=== PATIENT | male | born 1980 | race Two or more races ===

== ENCOUNTER 2024-07-23 07:45 | Inpatient (IN) | payer MEDICAID, SELFPAY ==
[2024-07-23] VITALS (17 sets, daily range): BP systolic 117–175; BP diastolic 83–127; PULSE 78–110; RESP 12–91; TEMP 36.3–37.1; O2SAT 89–98; BMI 39.1; BMI 38.0
--- NOTE | 2024-07-23 07:56 | EDNOTE_ITS ---
ED SOB =RME/HPI General Chief Complaint: Shortness of Breath/Dyspnea Stated Complaint: SOB WITH EXERTION X 1MO Time Seen by Provider: 07/23/24 07:54 Arrival date/time: 07/23/24 07:45 RME / HPI RME / HPI Narrative: This section includes all my notes and documentations, including HPI, PE, and ED course.? Oscar Conner MD HPI: 43 year old male with no stated medical history presents to the ED with 1 week history of progressively worsening shortness of breath. Accompanied by cough producing green phlegm and subjective fever. Denies chills, chest pain. Denies sore throat or nasal congestion. Reports heavy alcohol usage. No other associated symptoms reported. ROS: All negative except as documented in HPI. Physical Exam: General:? Alert and oriented.? Moderate respiratory distress noted. High BP noted. Hypoxia noted. Eyes:? Conjunctivae and lids clear.?? ENT:? No nasal congestion.? Neck:? Supple.?? Heart:? RRR.? Lungs:? Mild respiratory distress, modertely decreased air movement with wheezing and rales. Abdomen: Soft and nontender. Back:? No CVA tenderness.?? Skin:? Warm and dry.?? Neuro:? Alert and oriented X 3. Prior to diagnostic tests, patient was given DuoNeb and Solu-Medrol 125 mg IV and oral clonidine and oral metoprolol. And IV fluid ordered. I reviewed all diagnostic test results: My interpretation of the EKG is: Sinus tachycardia (104 bpm) with nonspecific ST-T changes. My interpretation of the chest x-ray is: Moderate enlargement cardiac contour, mild vascular congestion. My review of the CTA chest report is: mild heart failure, negative for PE, pulmonary hypertension. My review of the CT abdomen/pelvis is: cirrhosis and anasarca. Blood tests remarkable for D-dimer 987, BNP 638. ABG showed pH 7.30, pCO2 61, and pHCO3 30. Covid/Influenza is negative. At this point, diagnoses include: Acute respiratory failure with hypoxia and hypercapnia, CHF, anasarca, and cirrhosis. IV fluid discontinued. Lasix and morphine and topical NTG given. With no improvement, BiPAP initiated. Significant improvement not noted. I discussed the case with our hospitalist.? About the presentation and exam and diagnostics and treatments here.? And need of further care in the hospital.? Will accept the patient. Oscar Conner MD Related Data Allergies Allergy/AdvReac Type Severity Reaction Status Date / Time NKA* Allergy Uncoded 07/10/15 20:33 Review of Systems Review of Systems Systems Reviewed: All systems reviewed, normal except as documented Past Medical History Past Medical History CARDIAC: Negative Cardiac Disorders or Congestive Heart Failure RESPIRATORY: Positive Asthma (SOB); Negative Chronic Obstructive Pulmonary Disease (COPD) GENITOURINARY: Negative Renal Disease ENDOCRINE: Negative Diabetes Mellitus Type 1 or Diabetes Mellitus Type 2 HEMATOLOGIC: Negative Sickle Cell Disease Family History FAMILY HISTORY: Positive Family Cardiac Disorders; Negative Family Cancer Social History SMOKING STATUS: Never smoker ED Exam Narrative Physical exam: As noted in HPI Course Quality Measures none Orders Category Date Time Status Admit to Inpatient Status Routine Admission 07/23/24 11:58 Active Patient Condition Routine Admission 07/23/24 11:58 Ordered Activity as Tolerated Routine Care 07/23/24 12:00 Ordered Bedside COVID-19 Antigen Test NOW Care 07/23/24 07:56 Active Bedside Influenza A&B Antigen Test NOW Care 07/23/24 07:56 Completed COVID-19 Screening Questionnaire NOW Care 07/23/24 12:[address] Screening NOW Care 07/23/24 07:58 Active Decision to Admit X1 Care 07/23/24 12:11 Active EKG (ED ONLY) *Do not use* NOW Care 07/23/24 07:58 Completed Esquivel [Urinary Catheter] NOW Care 07/23/24 11:58 Active NPO NOW Care 07/23/24 12:00 Active Notify provider NEEDED Care 07/23/24 11:58 Active Obtain weight daily Care 07/23/24 12:00 Active Saline [Insert IV] NOW Care 07/23/24 07:56 Active Strict Intake and Output Routine Care 07/23/24 12:00 Ordered Referral Respiratory Therapy Stat Cons 07/23/24 09:58 Active Diet NPO (NOW) Diet 07/23/24 12:00 Active CA echo doppler complete Routine Exams 07/23/24 12:[address] abdomen pelvis w con Stat Exams 07/23/24 07:[address] angio chest Stat Exams 07/23/24 07:58 Completed EKG (ED Only) Stat Exams 07/23/24 07:58 Draft XR chest 1V portable Stat Exams 07/23/24 07:58 Completed A1C [Glycohemoglobin w (eAG)] AM DRAW Lab 07/24/24 05:00 Ordered ABG [Arterial Blood Gas] Stat Lab 07/23/24 08:41 Completed Alcohol, Blood Medical Stat Lab 07/23/24 08:28 Completed Amylase Stat Lab 07/23/24 08:28 Completed BNP [B-Type Natriuretic Peptide] Stat Lab 07/23/24 08:28 Completed Bilirubin,Direct Stat Lab 07/23/24 08:28 Completed CBC AM DRAW Lab 07/24/24 05:00 Ordered CBC AM DRAW Lab 07/25/24 05:00 Ordered CBC AM DRAW Lab 07/26/24 05:00 Ordered CBC Stat Lab 07/23/24 08:28 Completed CMP [Comprehensive Metabolic Panel] Stat Lab 07/23/24 08:28 Completed Cocci Serology IgM with reflex to IgG [Cocci Serology, Lab 07/23/24 12:06 Ordered Unk History] Routine Comprehensive Metabolic Panel AM DRAW Lab 07/24/24 05:00 Ordered Comprehensive Metabolic Panel AM DRAW Lab 07/25/24 05:00 Ordered Comprehensive Metabolic Panel AM DRAW Lab 07/26/24 05:00 Ordered D-Dimer Stat Lab 07/23/24 08:28 Completed Free T4 (Free Thyroxine) Stat Lab 07/23/24 08:28 Completed Lipase Stat Lab 07/23/24 08:28 Completed Lipid Panel AM DRAW Lab 07/24/24 05:00 Ordered Magnesium AM DRAW Lab 07/24/24 05:00 Ordered Magnesium AM DRAW Lab 07/25/24 05:00 Ordered Magnesium AM DRAW Lab 07/26/24 05:00 Ordered Magnesium Stat Lab 07/23/24 08:28 Completed PT [Prothrombin Time with INR] Stat Lab 07/23/24 08:28 Completed PTT [Partial Thromboplastin Time] Stat Lab 07/23/24 08:28 Completed Phosphorous AM DRAW Lab 07/24/24 05:00 Ordered Phosphorous AM DRAW Lab 07/25/24 05:00 Ordered Phosphorous AM DRAW Lab 07/26/24 05:00 Ordered TSH [Thyroid Stimulating Hormone] Stat Lab 07/23/24 08:28 Completed Thyroid Stimulating Hormone AM DRAW Lab 07/24/24 05:00 Ordered Troponin I Stat Lab 07/23/24 08:28 Completed Acetaminophen Tab [Tylenol Tab] Med 07/23/24 11:58 Active 650 mg PO Q6H PRN Albuterol/Ipratr Rt Unique [Duoneb Rt Unique] Med 07/23/24 13:00 Active 3 ml INH Q6HRRT Albuterol/Ipratr Rt Unique [Duoneb Rt Unique] Med 07/23/24 07:56 Discontinued 3 ml INH X1 ONE Furosemide Inj [Lasix Inj] Med 07/24/24 09:00 Active 40 mg IVP BID Furosemide Inj [Lasix Inj] Med 07/23/24 09:59 Discontinued 40 mg IVP X1 ONE Furosemide Inj [Lasix Inj] Med 07/23/24 14:00 Once 40 mg IVP X1 ONE Heparin Inj Med 07/23/24 14:00 Active 5,000 unit SC Q8HR MethylPREDNISolone.* [SoluMEDROL Inj] Med 07/23/24 07:56 Discontinued 125 mg IVP X1 ONE Metoprolol Tartrate [Lopressor] Med 07/23/24 07:58 Discontinued 25 mg PO X1 ONE Morphine Inj Med 07/23/24 09:59 Discontinued 2 mg IVP X1 ONE Nitroglycerin Oint 2% [Nitro-paste Oint 2%] Med 07/23/24 09:59 Discontinued 1 inch TOP X1 ONE Ondansetron Inj [Zofran Inj] Med 07/23/24 11:58 Active 4 mg IVP Q6H PRN Ondansetron Inj [Zofran Inj] Med 07/23/24 07:56 Discontinued 4 mg IVP X1 ONE Sodium Chloride 0.9% 1000 ml [Ns] 1,000 ml Med 07/23/24 07:56 Discontinued IV 999 mls/hr cloNIDine HCL [Catapres] Med 07/23/24 07:58 Discontinued 0.2 mg PO X1 ONE Code Status Routine Oth 07/23/24 11:58 Ordered BiPAP / CPAP NOW RT 07/23/24 09:58 Active Oxygen Delivery PRN RT 07/23/24 11:58 Active Vital Signs Vital signs: Vital Signs Temperature 98.8 F 07/23/24 08:00 Pulse Rate 97 07/23/24 08:00 Respiratory Rate 18 07/23/24 08:00 Blood Pressure 165/127 H 07/23/24 08:00 Pulse Oximetry (%) 91 L 07/23/24 08:00 Oxygen Delivery Method Room Air 07/23/24 08:00 Shortness of Breath / Dyspnea MDM Narrative MDM Narrative:: IAlexia, am scribing for and in the presence of Dr. Conner. 43 year old male with no stated medical history presents to the ED with 1 week history of progressively worsening shortness of breath. Accompanied by a cough producing green phlegm and subjective fevers. Additionally reports feeling short of breath with exertion in the last week. Denies chills, chest pain. Denies sore throat or nasal congestion. No other associated symptoms reported. Patient data External records reviewed:: None (No previous ED visits for review ) Clinical information provided by:: patient Social determinants that could affect healthcare access:: alcohol use Patient has the following chronic illnesses:: No stated medical hx How is presenting disease/condition affected by chronic disease/condition?: no chronic disease Evaluation data The following diagnostics were reviewed and interpreted by me:: lab results, radiology exam(s) and EKG tracing(s) (My interpretation of the EKG is: Sinus tachycardia (104 bpm) with nonspecific ST-T changes. Oscar Conner MD) Lab and/or radiology exams considered but not ordered:: None Interpretation Summary: I reviewed all diagnostic test results: My interpretation of the EKG is: Sinus tachycardia (104 bpm) with nonspecific ST-T changes. My interpretation of the chest x-ray is: Moderate enlargement cardiac contour, mild vascular congestion. My review of the CTA chest report is: mild heart failure, negative for PE, pulmonary hypertension. My review of the CT abdomen/pelvis is: cirrhosis and anasarca. Blood tests remarkable for D-dimer 987, BNP 638. ABG showed pH 7.30, pCO2 61, and pHCO3 30. Covid/Influenza is negative. Medications / Prescriptions Medications or Prescriptions considered but not ordered:: None Medication administrations:: Medication Administration History Acetaminophen (Acetaminophen 325 Mg Tablet) 650 mg PO Q6H PRN PRN Reason: Fever >101.5 Stop: 08/22/24 11:57 Albuterol/Ipratropium (Albuterol/Ipratropium (Duoneb) Rt Unique 3 Ml Nebu) 3 ml INH Q6HRRT LINAG Stop: 08/22/24 12:59 Furosemide (Furosemide Inj 10 Mg/Ml 4ml Vial) 40 mg IVP X1 ONE Stop: 07/23/24 14:01 Furosemide (Furosemide Inj 10 Mg/Ml 4ml Vial) 40 mg IVP BID LIANG Stop: 08/23/24 08:59 Heparin Sodium (Porcine) (Heparin Sod Inj 5000 Unit/Ml Vial) 5,000 unit SC Q8HR LIANG Stop: 08/06/24 13:59 Ondansetron HCl (Ondansetron Inj 2 Mg/Ml Inj 2 Ml) 4 mg IVP Q6H PRN; Protocol PRN Reason: NAUSEA OR VOMITING Stop: 08/22/24 11:57 Discontinued Medications Albuterol/Ipratropium (Albuterol/Ipratropium (Duoneb) Rt Unique 3 Ml Nebu) 3 ml INH X1 ONE Stop: 07/23/24 07:57 Last Admin: 07/23/24 08:33 Dose: 3 ml Documented By: DOV Clonidine (Clonidine Hcl 0.1 Mg Tablet) 0.2 mg PO X1 ONE Stop: 07/23/24 07:59 Last Admin: 07/23/24 08:34 Dose: 0.2 mg Documented By: GM Furosemide (Furosemide Inj 10 Mg/Ml 4ml Vial) 40 mg IVP X1 ONE Stop: 07/23/24 10:00 Last Admin: 07/23/24 10:35 Dose: 40 mg Documented By: GM Sodium Chloride (Ns) 1,000 mls @ 999 mls/hr IV .Q1H1M ONE Stop: 07/23/24 08:56 Last Infusion: 07/23/24 09:53 Dose: Infused Documented By: Admin: 07/23/24 08:40 Dose: 999 mls/hr Documented By: GM Methylprednisolone Sodium Succinate (Methylprednisolone Sod Succ 62.5 Mg/Ml 2ml Vial) 125 mg IVP X1 ONE Stop: 07/23/24 07:57 Last Admin: 07/23/24 08:36 Dose: 125 mg Documented By: GM Metoprolol Tartrate (Metoprolol Tartrate 25 Mg Tablet) 25 mg PO X1 ONE Stop: 07/23/24 07:59 Last Admin: 07/23/24 08:34 Dose: 25 mg Documented By: GM Morphine Sulfate (Morphine Sulf Inj 10 Mg/Ml Vial) 2 mg IVP X1 ONE Stop: 07/23/24 10:00 Last Admin: 07/23/24 10:38 Dose: Not Given Documented By: GM Non-Admin Reason: Patient Refused Nitroglycerin (Nitroglycerin Oint 2% 1 Inch Packet) 1 inch TOP X1 ONE Stop: 07/23/24 10:00 Last Admin: 07/23/24 10:42 Dose: 1 inch Documented By: NNEKA Ondansetron HCl (Ondansetron Inj 2 Mg/Ml Inj 2 Ml) 4 mg IVP X1 ONE; Protocol Stop: 07/23/24 07:57 Last Admin: 07/23/24 10:37 Dose: Not Given Documented By: Non-Admin Reason: Patient Refused Prior to diagnostic tests, patient was given DuoNeb and Solu-Medrol 125 mg IV and oral clonidine and oral metoprolol. And IV fluid ordered. After diagnostic tests: IV fluid discontinued. Lasix and morphine and topical NTG given. With no improvement, BiPAP initiated. Consultations Consultation(s) initiated? (list below): Yes Consultation #1 (Physician, Specialty, Details): I spoke with hospitalist as noted above. Time: 10:55 Diagnosis Shortness of Breath Differential Diagnosis: acute exacerbation of chronic obstructive airways disease, congestive heart failure, community acquired pneumonia, asthma with exacerbation and pulmonary embolism Most likely diagnosis given after review of the tests above:: Acute respiratory failure with hypoxia and hypercapnia Admission Indicated Admission indicated?: indicated Explain why admission is indicated or not indicated:: Acute respiratory failure with hypoxia and hypercapnia Admission Request Was there a request for admission?: Yes Admission Attestation Admission request attestation: Discussed case with Hospitalist service regarding admission. Discussed patients ED course, exam findings, labs, and radiology results. The Hospitalist [agrees] to accept the patient for admission. Disposition Plan Disposition Plan: Admit Critical Care Time Critical Care Time Critical Care Time: Yes Total Critical Care Time (min.): 36 Attestation: Due to a high probability of clinically significant, life threatening deterioration, the patient required my highest level of preparedness to intervene emergently and I personally spent this critical care time directly and personally managing the patient. This critical care time included obtaining a history; examining the patient; ordering and review of studies; arranging urgent treatment with development of a management plan; evaluation of patient's response to treatment; frequent reassessment; and discussions with family and other providers. It was exclusive of separately billable procedures and treating other patients and teaching time. Oscar Conner MD Discharge Plan Plan Patient Disposition: Admit Acute Care w/in Hospital Prescriptions/Referrals Referrals: No Primary/Family,Physician [Primary Care Provider] - In 1 week Problem List Clinical Impression: Acute respiratory failure with hypoxia and hypercarbia Patient/Caregiver Discharge Instructions Print Language: Romanian Stand Alone Forms: [employer] Award Info., Patient Portal Info Letter
--- NOTE | 2024-07-23 07:58 | EKG_ITS ---
[facility] Test Date: 2024-07-23 Pat Name: SADIQ HARDWICK Department: Room: - Gender: Male [place]: : 1980 Requested By: Oscar Branham Order Number: [id number] Reading MD: Oscar Branham Measurements Intervals [place] Rate: 104 P: 71 PA: 139 QRS: 122 QRSD: 80 T: 120 QT: 311 QTc: 410 Interpretive Statements SINUS TACHYCARDIA POSSIBLE RIGHT VENTRICULAR HYPERTROPHY [SOME/ALL OF: PROMINENT R IN V1, LATE TRANSITION, RAD, SAMIA, SSS] ANTEROSEPTAL MYOCARDIAL INFARCTION , OF INDETERMINATE AGE [40+ ms Q WAVE IN V1-V4] No previous ECG available for comparison /[id number]/[email or web address]/[id number]
--- NOTE | 2024-07-23 07:58 | XR_ITS ---
Examination: CTA chest with intravenous contrast 2-D reconstructions 3-D reconstructions, vascular Date and time of exam: July 23, 2024 1010 hours INDICATIONS: Shortness of breath chest pain today CTDI: vol (mGy) 16.1 DLP: (mGycm) 604 Technique: Multiple axial sections of the thorax have been obtained. 3 mm slice thickness, from below the hemidiaphragms to above the apices of the lungs. Mediastinal and lung density settings have been obtained. 2-D sagittal and coronal reconstructions. 3-D angiographic renderings, 3-D volume renderings, 3D post processing, vascular maximum intensity projections obtained. Contrast administered is 100 cc Isovue-370. Low dose protocols were performed. One or more of the following dose reduction techniques were used; automated exposure control, adjustment of the mA and/or KV according to patient size, use of iterative reconstruction technique. Findings: No thoracic aortic aneurysm dilatation Enlarged main pulmonary artery segment 4.5 cm No pulmonary artery filling defects Moderate enlargement cardiac contour with prominent vascular congestion and septal edema Small to moderate right pleural effusion minimal left pleural effusion Cirrhosis, liver lobular in contour Mild ascites Anasarca No definite gallstones Kidneys partially visualized no hydronephrosis IMPRESSION: Mild heart failure Pulmonary artery hypertension Negative for pulmonary artery emboli Cirrhosis Mild ascites Anasarca
--- NOTE | 2024-07-23 07:58 | XR_ITS ---
Examination: CT abdomen with intravenous contrast CT pelvis with intravenous contrast 2-D coronal reconstructions 2-D sagittal reconstructions Date and time of exam:July 23, 2024 1003 hours INDICATIONS: Abdominal pain shortness of breath today. CTDI: vol (mGy) 15.6 DLP: (mGycm) 1056 Technique: Multiple axial sections of the abdomen and pelvis have been obtained. 64 slice high-resolution scanner used. 3 mm axial sections have been obtained, post intravenous injection 100 cc Isovue-370 2-D sagittal, coronal reconstructions obtained. Low dose protocols were performed. One or more of the following dose reduction techniques were used; automated exposure control, adjustment of the mA and/or KV according to patient size, use of iterative reconstruction technique. Findings: Cirrhosis On this study posterior right lobe solid appearing liver lesion 18 mm Mild ascites No splenomegaly Contracted gallbladder No pancreatic mass No hydronephrosis Anasarca Aorta normal size 12 mm fat-containing umbilical hernia Normal appendix No bowel obstruction Urinary bladder intact No prostatomegaly Advanced disc narrowing L5-S1 IMPRESSION: Cirrhosis 18 mm posterior right lobe liver lesion, recommend elective MRI abdomen follow-up pre and postcontrast Mild ascites Anasarca 12 mm fat-containing umbilical hernia
--- NOTE | 2024-07-23 07:58 | XR_ITS ---
Examination: AP chest single view Technique one AP portable upright chest single view Date and time: July 23, 2024 0857 hours INDICATIONS: Shortness of breath today. FINDINGS: Moderate enlargement cardiac contour Mild vascular congestion. No lobar pneumonia or pulmonary edema IMPRESSION: Moderate enlargement cardiac contour Mild vascular congestion
[2024-07-23] MEDS: ALBUTEROL/IPRATROPIUM (Duoneb) RT SOL 3 ML NEBU INH ×2 (08:33→12:30)
[2024-07-23] MEDS: METOPROLOL TARTRATE 25 MG TABLET PO (08:34)
[2024-07-23] MEDS: cloNIDine HCL 0.1 MG TABLET 0.2 MG PO (08:34)
[2024-07-23] MEDS: MethylPREDNISolone SOD SUCC 62.5 MG/ML 2ML VIAL 125 MG IVP (08:36)
[2024-07-23] MEDS: SODIUM CHLORIDE 0.9% 1000 ML 1,000 ML 999 ML IV (08:40)
[2024-07-23 08:49] LABS: Base Excess 2 (-3-3); HCO3 30 mEq/L (20-26); Inspired O2, VO2 Liters 2 L/min; O2 Saturation 96 % (91-98); PCO2 61 mmHg (32.0-48.0); PO2 96 mmHg (83-108)
[2024-07-23 08:50] LABS: Basophils % (Auto) 1 % (0-2.5); Eosinophils # (Auto) 0.1 Thou/mm3 (0.0-0.5); Eosinophils % (Auto) 1 % (0-10); Hematocrit 54.1 % (41.0-53.0); Hemoglobin 16.9 g/dL (13.5-16.0); Immature Granulocytes % (Auto) 0 % (0-0); Immature Granulocytes Auto 0.03 Thou/mm3 (0.00-0.00); Lymphocytes % (Auto) 23 % (10-50); Mean Corpuscular HGB Conc 31.2 g/dl (31.0-37.0); Mean Corpuscular Hemoglobin 30.3 pg (25.0-35.0); Mean Corpuscular Volume 97 fL (80-100); Monocytes # (Auto) 0.8 Thou/mm3 (0.0-0.8); Monocytes % (Auto) 9 % (0-12); Neutrophils # (Auto) 5.8 Thou/mm3 (1.8-7.7); Neutrophils % (Auto) 66 % (37-80); Nucleated Red Blood Cell % 0 /100 WBC (0); Platelet Count 341 Thou/mm3 (140-440); RDW Standard Deviation 58.8 fL (35.1-43.9); Red Blood Count 5.57 Miln/mm3 (4.50-5.90); White Blood Count 8.7 Thou/mm3 (3.8-10.6)
[2024-07-23 08:50] LABS: Allen Test Performed/OK; Puncture Site Right Radial
[2024-07-23 09:20] LABS: B-Type Natriuretic Peptide 638 pg/mL (0-100)
[2024-07-23 09:21] LABS: D-Dimer 987 ng/mL (<600)
[2024-07-23 09:24] LABS: Alanine Aminotransferase 24 U/L (10-49); Albumin, Serum 3.8 gm/dL (3.5-5.0); Albumin/Globulin Ratio 1.3 (1.2-2.2); Alcohol, Blood Medical < 3.0 mg/dL (0-10.0); Alkaline Phosphatase 70 U/L (46-116); Amylase 63 U/L (30-118); Anion Gap 11 (7-16); Aspartate Amino Transferase 25 U/L (0-34); BUN/Creatinine Ratio 9 Ratio (12-20); Bilirubin,Direct 0.4 mg/dL (0.0-0.3); Bilirubin,Total 1.1 mg/dL (0.3-1.2); Blood Urea Nitrogen 9 mg/dL (9-23); Calcium 8.8 mg/dL (8.3-10.6); Carbon Dioxide 27.5 mMol/L (20.0-31.0); Chloride 105 mMol/L (98-107); Estimated Creatinine Clearance 108.6 mL/min (>60); Free T4 (Free Thyroxine) 1.02 ng/dL (0.89-1.76); Glucose 117 mg/dL (74-106); Lipase 37 U/L (12-53); Magnesium 1.8 mg/dL (1.6-2.6); Osmolality,Calculated 284 (275-295); Potassium 4.4 mMol/L (3.4-5.1); Sodium 143 mMol/L (136-145); Thyroid Stimulating Hormone 2.67 uIU/mL (0.55-4.78); Total Protein 6.8 gm/dL (5.7-8.2); Troponin I < 0.020 ng/mL (0.0-0.045); eGFR > 60 See Note
[2024-07-23 09:36] LABS: INR 1.2 (0.9-1.3); Partial Thromboplastin Time 29.6 Seconds (22.0-36.0)
[2024-07-23] MEDS: FUROSEMIDE INJ 10 MG/ML 4ML VIAL 40 MG IVP ×3 (10:35→21:06)
[2024-07-23] MEDS: NITROGLYCERIN OINT 2% 1 INCH PACKET TOP (10:42)
--- NOTE | 2024-07-23 12:07 | ESHP_ITS ---
Documentation for date of: 07/23/24 [facility] History of Present Illness History of present illness: Mr. Boudreaux is a 43 year old male with no known past medical history presented to the ED complaining of worsening shortness of breath started June 15. Pt states he initially started having exertional dyspnea which progressed to even at rest. Pt states he is gets severely short of breath when he is walking even very shortness distance (few steps), lifting boxes or any physical activity. Pt denies orthpnea or PND. Pt states when his symptoms first started he did not see a doctor and thought it would get better on its own. pt also noticed he was becoming very bloated. Pt denies seeing a doctor in couple decades, the last time he seen a doctor was when he had Tamara barre in 2007 and was hospitalized for 8 days. Pt denies any chest pain, palpitation and dizziness or syncopal episodes. ED course: In the ED pt's initial BP 165/127, HR 97, O2 91% on room air Lab findings include: CBC WNL with the exception of Hgb 16.9, Hct 54.1 CMP is unremarkable, BNP 638, D-dimer 987 ABG: pH 7.30, CO2 61, pO2 96, HCO3 30, O2 sat 96% CT abdomen/pelvis: Cirrhosis, 8 mm posterior right lobe liver lesion, mild ascites, anasarca, 12 mm fat-containing umbilical hernia CTA of chest: Mild heart failure, pulmonary artery hypertension, negative for PE Chest x-ray: Moderate enlargement cardiac contour, mild vascular congestion EKG: Sinus tachycardia with rate of 104 and QTc 410, possible right ventricular hypertrophy In the ED patient received breathing treatment with Solu-Medrol 125 mg x 1, clonidine 0.2 mg x 1, metoprolol tartrate 25 mg p.o. x 1, 1 L bolus of normal saline, topical nitroglycerin x 1, and patient was placed on BiPAP for hypercapnia. 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 PSH: No surgical history SH: Former smoker quit in 2012 (history of 20 pack years), drinks 1-2 beer daily for the past 20 years, occasionally smokes marijuana and denies any other illicit drug use Home meds: Does not take any medications at home Allergies: No known allergies Review of Systems Review of Systems Systems Reviewed: All systems reviewed, normal except as documented Exam Vital Signs Temp Pulse Resp BP Pulse Ox O2 Del Method O2 Flow Rate 98.2 F 78 20 120/83 96 BiPAP 2 07/23/24 11:01 07/23/24 11:01 07/23/24 11:01 07/23/24 11:01 07/23/24 11:01 07/23/24 11:01 07/23/24 08:33 FiO2 45 07/23/24 10:43 Narrative Exam GENERAL: A&Ox3 , middle ages obese male, Awake on Bipap , Not in acute distress NEURO: no focal neurological deficits noted HEENT: Atraumatic, Normocephalic. mucous membranes moist. Eyes open, symmetrical, & clear HEART: Normal Heart Sounds LUNGS: Clear to auscultation with no wheezing or crackles. ABDOMEN: soft, non-distended, non-tender, bowel sounds heard, no guarding or rebound tenderness, 3+ dependent edema around the abdomen SKIN: No Rash or ecchymoses EXTREMITIES: 3+ pitting edema noted in LE extending to abdomen, no tenderness, able to move all 4 extremities, pedal pulses palpated Results: Labs 07/29/24 05:21 07/29/24 05:21 Labs: Short CBC 07/23/24 Range/Units 08:28 WBC 8.7 (3.8-10.6) Thou/mm3 Hgb 16.9 H (13.5-16.0) g/dL Hct 54.1 H (41.0-53.0) % Plt Count 341 (140-440) Thou/mm3 BMP 07/23/24 08:28 Sodium 143 Potassium 4.4 Chloride 105 Carbon Dioxide 27.5 BUN 9 Creatinine 1.0 Glucose 117 H Calcium 8.8 Cardiac Enzymes 07/23/24 Range/Units 08:28 Troponin I < 0.020 (0.0-0.045) ng/mL Liver Function 07/23/24 Range/Units 08:28 Total Bilirubin 1.1 (0.3-1.2) mg/dL Direct Bilirubin 0.4 H (0.0-0.3) mg/dL AST 25 (0-34) U/L ALT 24 (10-49) U/L Alkaline Phosphatase 70 (46-116) U/L Albumin 3.8 (3.5-5.0) gm/dL ABG Interpretation ABG results: 07/23/24 08:41 ABG pH 7.30 L ABG pCO2 61 H ABG pO2 96 ABG HCO3 30 H ABG O2 Saturation 96 ABG Base Excess 2 Quality Measures Quality Measures none Medications Home Medications and Allergies Home Medications ?Medication ?Instructions ?Recorded ?Confirmed ?Type No Known Home Medications 07/23/2407/06 History Allergies Allergy/AdvReac Type Severity Reaction Status Date / Time No Known Allergies Allergy Unverified 07/24/24 08:07 Visit Medications Acetaminophen (Acetaminophen 325 Mg Tablet) 650 mg PO Q6H PRN PRN Reason: Fever >101.5 Stop: 08/22/24 11:57 Albuterol/Ipratropium (Albuterol/Ipratropium (Duoneb) Rt Unique 3 Ml Nebu) 3 ml INH Q6HRRT LIANG Stop: 08/22/24 12:59 Furosemide (Furosemide Inj 10 Mg/Ml 4ml Vial) 40 mg IVP X1 ONE Stop: 07/23/24 14:01 Furosemide (Furosemide Inj 10 Mg/Ml 4ml Vial) 40 mg IVP BID LIANG Stop: 08/23/24 08:59 Heparin Sodium (Porcine) (Heparin Sod Inj 5000 Unit/Ml Vial) 5,000 unit SC Q8HR LIANG Stop: 08/06/24 13:59 Ondansetron HCl (Ondansetron Inj 2 Mg/Ml Inj 2 Ml) 4 mg IVP Q6H PRN; Protocol PRN Reason: NAUSEA OR VOMITING Stop: 08/22/24 11:57 Discontinued Medications Albuterol/Ipratropium (Albuterol/Ipratropium (Duoneb) Rt Unique 3 Ml Nebu) 3 ml INH X1 ONE Stop: 07/23/24 07:57 Last Admin: 07/23/24 08:33 Dose: 3 ml Clonidine (Clonidine Hcl 0.1 Mg Tablet) 0.2 mg PO X1 ONE Stop: 07/23/24 07:59 Last Admin: 07/23/24 08:34 Dose: 0.2 mg Furosemide (Furosemide Inj 10 Mg/Ml 4ml Vial) 40 mg IVP X1 ONE Stop: 07/23/24 10:00 Last Admin: 07/23/24 10:35 Dose: 40 mg Sodium Chloride (Ns) 1,000 mls @ 999 mls/hr IV .Q1H1M ONE Stop: 07/23/24 08:56 Last Infusion: 07/23/24 09:53 Dose: Infused Methylprednisolone Sodium Succinate (Methylprednisolone Sod Succ 62.5 Mg/Ml 2ml Vial) 125 mg IVP X1 ONE Stop: 07/23/24 07:57 Last Admin: 07/23/24 08:36 Dose: 125 mg Metoprolol Tartrate (Metoprolol Tartrate 25 Mg Tablet) 25 mg PO X1 ONE Stop: 07/23/24 07:59 Last Admin: 07/23/24 08:34 Dose: 25 mg Morphine Sulfate (Morphine Sulf Inj 10 Mg/Ml Vial) 2 mg IVP X1 ONE Stop: 07/23/24 10:00 Last Admin: 07/23/24 10:38 Dose: Not Given Nitroglycerin (Nitroglycerin Oint 2% 1 Inch Packet) 1 inch TOP X1 ONE Stop: 07/23/24 10:00 Last Admin: 07/23/24 10:42 Dose: 1 inch Ondansetron HCl (Ondansetron Inj 2 Mg/Ml Inj 2 Ml) 4 mg IVP X1 ONE; Protocol Stop: 07/23/24 07:57 Last Admin: 07/23/24 10:37 Dose: Not Given Assessment & Plan Plan Mr. Boudreaux is a 43 year old male with no known past medical history presented to the ED complaining of worsening shortness of breath. Pt is admitted for management of acute hypoxic hypercapnic respiratory failure secondary to CHF exacerbation requiring Bipap and IV diuretics. #Acute Hypoxic hypercapnic respiratory failure 2/2 to #Acute exacerbation of CHF #Anasarca Pt complains of progressively worsening exertional shortness of breath started June 15, denies orthpnea and PND. Pt also noted abdominal bloating BNP 638, troponin <0.020 Chest x-ray: Moderate enlargement cardiac contour, mild vascular congestion EKG: Sinus tachycardia with rate of [address] abdomen/pelvis: Cirrhosis, 8 mm posterior right lobe liver lesion, mild ascites, anasarca, 12 mm fat-containing umbilical hernia ABG: pH 7.30, CO2 61, pO2 96, HCO3 30, O2 sat 96% Plan: - O2 support PRN -Bipap for acute hypercapnia -Will repeat ABG at 4pm -Daily weights, strict I&Os, fluid restriction to 1500cc daily -Lasix 40mg IV BID -Echo ordered -NPO for now, when pt is off the Bipap will advance to cardiac diet #Coccidioidomycosis -Cocci IgM is positive, pending UCD confirmatory test -Pt works in [employer] -Started flucanazole 400mg Qday #Cirrhosis #Ascites, mild #Liver lesion, right lobe -CT abdomen/pelvis: Cirrhosis, 8 mm posterior right lobe liver lesion, mild ascites, anasarca, 8 mm posterior right lobe liver lesion -Pt endorses to drinking alcohol daily -AST and ALT with in normal limits -Pt will need outpatient follow up and referral to assisted sales representative -Pt is advised on complete abstinence from alcohol #Umbilical hernia -12 mm fat-containing umbilical hernia -Pt denies abdominal pain, asymptomatic -Will need outpatient follow up Health Maintenance Disposition: telemetry, pt is rewuiring BiPap due to acute hypoxic hypercapnic respiratory failure DVT Prophylaxis: Heparin 5000 units SC Q8 hrs GI Prophylaxis: not indicated Diet: NPO for now since pt is on BiPAP, will advance diet once pt is off of Bipap Lines: Peripheral lines Code status: Full Assessment and plan discussed with my attending physician Dr. Cortney Roth (PGY-1)- Internal medicine resident Attending Provider Attestation/Addendum 43-year-old male with no previous medical history presented with shortness of breath and found to have acute hypoxic respiratory failure with generalized anasarca and pulmonary edema likely related to acute new onset CHF exacerbation. Currently, patient is on BiPAP and plan to start the patient on aggressive IV diuretic therapy. In addition, patient also tested positive for coccidiomycosis IgM for which plan to start fluconazole pending confirmatory [facility] testing.I reviewed above note and agree with findings and plans. I have also personally examined the patient with medicine team and went over assessment and plan with medical team including digital media intern and resident physician.
[2024-07-23 13:34] LABS: Cocid Sro, CF/ID (UCD) NO CHG* See Sep Rpt
[2024-07-23 13:34] LABS: Cocci Serology, IgM Positive (Negative)
[2024-07-23 14:40] LABS: Base Excess 3 (-3-3); HCO3 32 mEq/L (20-26); Inspired Oxygen, FIO2 55 %; O2 Saturation 96 % (91-98); PCO2 67 mmHg (32.0-48.0); PO2 101 mmHg (83-108); pH, Arterial 7.29 (7.35-7.45)
[2024-07-23 14:41] LABS: Allen Test Performed/OK; Puncture Site Right Radial
[2024-07-23] MEDS: HEPARIN SOD INJ 5000 UNIT/ML VIAL SC ×2 (14:47→21:07)
[2024-07-23] MEDS: FLUCONAZOLE 100 MG TABLET 400 MG PO (15:32)
--- NOTE | 2024-07-23 17:05 | PC.NURSE ---
Dr. Delgado made aware, when pt is sleeping, he desats to 85% and when I wake him up, he's back up to the 90s.
[2024-07-24] VITALS (15 sets, daily range): BP systolic 129–141; BP diastolic 93–102; PULSE 83–97; RESP 17–26; TEMP 36.1–36.6; O2SAT 90–95; BMI 36.1
[2024-07-24 05:25] LABS: Basophils % (Auto) 0 % (0-2.5); Eosinophils % (Auto) 0 % (0-10); Hematocrit 48.7 % (41.0-53.0); Hemoglobin 15.8 g/dL (13.5-16.0); Immature Granulocytes % (Auto) 0 % (0-0); Immature Granulocytes Auto 0.03 Thou/mm3 (0.00-0.00); Lymphocytes # (Auto) 1.3 Thou/mm3 (1.0-4.8); Lymphocytes % (Auto) 12 % (10-50); Mean Corpuscular HGB Conc 32.4 g/dl (31.0-37.0); Mean Corpuscular Volume 93 fL (80-100); Monocytes # (Auto) 0.9 Thou/mm3 (0.0-0.8); Monocytes % (Auto) 8 % (0-12); Neutrophils # (Auto) 8.5 Thou/mm3 (1.8-7.7); Neutrophils % (Auto) 79 % (37-80); Nucleated Red Blood Cell % 0 /100 WBC (0); Platelet Count 239 Thou/mm3 (140-440); RDW Standard Deviation 55.6 fL (35.1-43.9); Red Blood Count 5.26 Miln/mm3 (4.50-5.90); White Blood Count 10.7 Thou/mm3 (3.8-10.6)
[2024-07-24 05:28] LABS: Glucose Estimated Average 128 mg/dL (80-131); Hemoglobin A1C 6.1 % Hgb (4.8-6.0)
[2024-07-24 05:51] LABS: Alanine Aminotransferase 25 U/L (10-49); Albumin, Serum 3.5 gm/dL (3.5-5.0); Albumin/Globulin Ratio 1.3 (1.2-2.2); Alkaline Phosphatase 64 U/L (46-116); Anion Gap 8 (7-16); Aspartate Amino Transferase 24 U/L (0-34); BUN/Creatinine Ratio 12 Ratio (12-20); Bilirubin,Total 1.1 mg/dL (0.3-1.2); Blood Urea Nitrogen 12 mg/dL (9-23); Calcium 8.5 mg/dL (8.3-10.6); Calcium (Corrected) 8.9 mg/dL (8.5-10.1); Chloride 99 mMol/L (98-107); Cholesterol 121 mg/dL (132-200); Estimated Creatinine Clearance 119.6 mL/min (>60); Globulin 2.7 gm/dL (2.3-3.5); Glucose 114 mg/dL (74-106); HDL Cholesterol 30 mg/dL (40-60); LDL Cholesterol,Calculated 76 mg/dL (0-130); Magnesium 1.6 mg/dL (1.6-2.6); Osmolality,Calculated 285 (275-295); Phosphorous 5.8 mg/dL (2.4-5.1); Potassium 4.2 mMol/L (3.4-5.1); Sodium 143 mMol/L (136-145); Thyroid Stimulating Hormone 0.94 uIU/mL (0.55-4.78); Total Protein 6.2 gm/dL (5.7-8.2); Triglycerides 77 mg/dL (30-150); eGFR > 60 See Note
[2024-07-24] MEDS: HEPARIN SOD INJ 5000 UNIT/ML VIAL SC ×3 (05:58→21:09)
[2024-07-24] MEDS: FUROSEMIDE INJ 10 MG/ML 4ML VIAL 40 MG IVP (08:21)
[2024-07-24] MEDS: FLUCONAZOLE 100 MG TABLET 400 MG PO (08:22)
[2024-07-24] MEDS: ACETAzolaMIDE 250 MG TABLET 500 MG PO (08:37)
[2024-07-24 08:55] LABS: Base Excess 9 (-3-3); HCO3 38 mEq/L (20-26); Inspired O2, VO2 Liters 4 L/min; O2 Saturation 90 % (91-98); PCO2 67 mmHg (32.0-48.0); PO2 63 mmHg (83-108); pH, Arterial 7.37 (7.35-7.45)
[2024-07-24 08:58] LABS: Allen Test Performed/OK; Puncture Site Left Radial
--- NOTE | 2024-07-24 12:02 | ECHO_ITS ---
Transthoracic Echo Report Ht (in): 70 Wt (lb): 258 Exam Location: Echo Lab Status: Inpatient [employer] Furn[employer] Restorer: Jayde Paula Indications: Procedure Performed: BP: 117 / 91 HR: 87 Technical Quality: Jayde Paula MEASUREMENTS (Male / Female) Normal Values 2D ECHO LV Diastolic Diameter PLAX 5.3 cm 4.2 - 5.9 / 3.9 - 5.3 cm LV Systolic Diameter PLAX 2.8 cm IVS Diastolic Thickness 1.1 cm 0.6 - 1.0 / 0.6 - 0.9 cm LVPW Diastolic Thickness 1.2 cm 0.6 - 1.0 / 0.6 - 0.9 cm LV Relative Wall Thickness 0.4 LVOT Diameter 2.4 cm LA Volume Index 30.7 cm?/m? 16 - 28 cm?/m? Ascending Aorta Diameter 3.2 cm DOPPLER AV Peak Velocity 130.0 cm/s AV Peak Gradient 6.8 mmHg LVOT Peak Velocity 107.0 cm/s LVOT Peak Gradient 4.6 mmHg AV Area Cont Eq pk 3.7 cm? MV Area PHT 3.2 cm? Mitral E Point Velocity 63.5 cm/s Mitral A Point Velocity 56.8 cm/s Mitral E to A Ratio 1.1 LV E' Lateral Velocity 5.7 cm/s Mitral E to LV E' Lateral Ratio 11.2 LV E' Septal Velocity 6.7 cm/s Mitral E to LV E' Septal Ratio 9.4 TR Peak Velocity 282.0 cm/s TR Peak Gradient 31.8 mmHg PV Peak Velocity 109.0 cm/s PV Peak Gradient 4.8 mmHg FINDINGS Left Ventricle There is a flattened septum in systole consistent with right ventricle pressure overload. The left ventricular wall thickness is mildly increased. The left ventricular ejection fraction is normal, estimated at 55 %. The left ventricular diastolic function is normal. Right Ventricle The right ventricle is severely dilated with reduced systolic function. RVSP 31mmHg. RAP 5mmHg. Left Atrium The left atrium is normal by two-dimensional, color flow and Doppler imaging with no structural abnormalities, no thrombus formation present. Right Atrium The right atrium is moderately dilated. Atrial Septum The interatrial septum appears normal with no evidence of a shunt. Aorta The aorta is normal by two-dimensional, color flow and Doppler interrogation. Mitral Valve The mitral valve is normal by two-dimensional, color flow and Doppler interrogation. There is no significant mitral valve regurgitation, stenosis or prolapse. Aortic Valve The aortic valve is trileaflet and normal by two-dimensional, color flow and Doppler interrogation. There is no significant aortic valve regurgitation. Tricuspid Valve The tricuspid valve is normal by two-dimensional, color flow and Doppler interrogation. There is no significant tricuspid valve regurgitation. Pulmonic Valve The pulmonic valve is not well visualized. There is no significant pulmonic valve regurgitation. Vessels The pulmonary artery appears normal. The inferior vena cava pulmonary and hepatic veins appear normal. Pericardium There is a trivial circumferencial pericardial effusion. CONCLUSIONS Indications: CHF Exacerbation Right atrium is mildly dilated. Right ventricle is markedly dilated Right ventricle dimension is equal to left ventricle dimension with moderate RV systolic dysfunction. Left ventricle is normal in dimension there is evidence of flattening of the septum D-shaped septum with paradoxical motion due to increased RV pressure and dimension. Overall left-sided function is preserved ejection fraction 50 to 55%. Mild tricuspid regurgitation. RV systolic pressure is normal 35 mmHg but based on the appearance RV pressure appears to be higher than the left There is evidence of a small Circumferencial Pericardial Effusion. No evidence of cardiac tamponade Sweta Hairston (Electronically Signed) Final Date: 24 July 2024 17:57
--- NOTE | 2024-07-24 13:44 | ESPR_ITS ---
Documentation for date of: 07/24/24 Subjective Subjective Interval history: No acute overnight events reported. Pt is seen and examined at bedside this morning. Pt states he feels significant improvement in his symptoms. He continues to have some shortness of breath but significant improvement from yesterday. Pt cotninues to be on Bipap and takes 1 hour breaks with each meal. Pt is net negative 7.5Ls. Will decrease lasic to 20mg BID and goal output is 3- 4L daily. Pt IgM for cocci is positive therefore started on flucanazole. Pt has no other complaints. Will continue IV diuretics, vitals are stable, labs are reviewed. Echo is pending Exam Vital Signs Temp Pulse Resp BP Pulse Ox O2 Del Method O2 Flow Rate 97.1 F 86 23 H 129/93 H 94 L BiPAP 5 07/24/24 08:00 07/24/24 10:50 07/24/24 10:50 07/24/24 08:21 07/24/24 10:50 07/24/24 08:00 07/24/24 04:00 FiO2 35 07/24/24 10:50 Narrative Exam GENERAL: A&Ox3 , middle ages obese male, Awake on Bipap , Not in acute distress NEURO: no focal neurological deficits noted HEENT: Atraumatic, Normocephalic. mucous membranes moist. Eyes open, symmetrical, & clear HEART: Normal Heart Sounds LUNGS: Clear to auscultation with no wheezing or crackles. ABDOMEN: soft, non-distended, non-tender, bowel sounds heard, no guarding or rebound tenderness, 2+ dependent edema around the abdomen SKIN: No Rash or ecchymoses EXTREMITIES: 2+ pitting edema noted in LE extending to abdomen, no tenderness, able to move all 4 extremities, pedal pulses palpated Objective Labs 07/29/24 05:21 07/29/24 05:21 Labs: Laboratory Results - last 24 hr 07/23/24 07/24/24 07/24/24 14:36 04:51 08:48 WBC 10.7 H RBC 5.26 Hgb 15.8 Hct 48.7 MCV 93 MCH 30.0 MCHC 32.4 RDW Std Deviation 55.6 H Plt Count 239 D Neut % (Auto) 79 Lymph % (Auto) 12 [place] % (Auto) 8 Eos % (Auto) 0 Baso % (Auto) 0 Neut # (Auto) 8.5 H Lymph # (Auto) 1.3 [place] # (Auto) 0.9 H Eos # (Auto) 0.0 Baso # (Auto) 0.0 Immature Gran # (Auto) 0.03 H Absolute Nucleated RBC 0.00 Immature Gran % 0 Nucleated RBC % 0 Puncture Site Right Radial Left Radial ABG pH 7.29 L 7.37 ABG pCO2 67 H 67 H ABG pO2 101 63 L D ABG HCO3 32 H 38 H ABG O2 Saturation 96 90 L ABG Base Excess 3 9 H Oxygen Liter Flow 4 FiO2 55 Sodium 143 Potassium 4.2 Chloride 99 Carbon Dioxide 36.0 H Anion Gap 8 BUN 12 Creatinine 1.0 Estim Creat Clear Calc 119.6 eGFR > 60 BUN/Creatinine Ratio [address] Glu mg/dL 128 Hemoglobin A1c 6.1 H Calculated Osmolality 285 Calcium 8.5 Corrected Calcium 8.9 Phosphorus 5.8 H Magnesium 1.6 Total Bilirubin 1.1 AST 24 ALT 25 Alkaline Phosphatase 64 Total Protein 6.2 Albumin 3.5 Globulin 2.7 Albumin/Globulin Ratio 1.3 Triglycerides 77 Cholesterol 121 L LDL Cholesterol, Calc 76 HDL Cholesterol 30 L Cholesterol/HDL Ratio 4.0 TSH 0.94 ABG Interpretation ABG results: 07/23/24 07/23/24 07/24/24 08:41 14:36 08:48 ABG pH 7.30 L 7.29 L 7.37 ABG pCO2 61 H 67 H 67 H ABG pO2 96 101 63 L D ABG HCO3 30 H 32 H 38 H ABG O2 Saturation 96 96 90 L ABG Base Excess 2 3 9 H Quality Measures Quality Measures none Assessment & Plan Assessment Current Active Medications: Generic Name Dose Route Start Last Admin Trade Name Freq PRN Reason Stop Dose Admin Acetaminophen 650 mg 07/24/24 11:41 Acetaminophen 325 Mg Tablet PO 08/22/24 11:57 Q6H PRN Fever >100.3 Albuterol/Ipratropium 3 ml 07/23/24 16:00 Albuterol/Ipratropium (Duoneb) Rt Unique 3 Ml Nebu INH 08/22/24 12:59 Q6HRRT PRN SHORTNESS OF BREATH OR WHEEZE Fluconazole 400 mg 07/23/24 14:00 07/24/24 08:22 Fluconazole 100 Mg Tablet PO 07/30/24 13:59 400 mg QDAY LIANG Administration Furosemide 20 mg 07/24/24 21:00 Furosemide Inj 10 Mg/Ml 4ml Vial IVP 08/23/24 20:59 BID LIANG Heparin Sodium (Porcine) 5,000 unit 07/23/24 14:00 07/24/24 05:58 Heparin Sod Inj 5000 Unit/Ml Vial SC 08/06/24 13:59 5,000 unit Q8HR LIANG Administration Ondansetron HCl 4 mg 07/23/24 11:58 Ondansetron Inj 2 Mg/Ml Inj 2 Ml IVP 08/22/24 11:57 Q6H PRN NAUSEA OR VOMITING Protocol Plan Mr. Boudreaux is a 43 year old male with no known past medical history presented to the ED complaining of worsening shortness of breath. Pt is admitted for management of acute hypoxic hypercapnic respiratory failure secondary to CHF exacerbation requiring Bipap and IV diuretics. #Acute Hypoxic hypercapnic respiratory failure / to #Acute exacerbation of CHF #Anasarca Pt complains of progressively worsening exertional shortness of breath started June 15, denies orthpnea and PND. Pt also noted abdominal bloating BNP 638, troponin <0.020 Chest x-ray: Moderate enlargement cardiac contour, mild vascular congestion EKG: Sinus tachycardia with rate of [address] abdomen/pelvis: Cirrhosis, 8 mm posterior right lobe liver lesion, mild ascites, anasarca, 12 mm fat-containing umbilical hernia ABG: pH 7.30, CO2 61, pO2 96, HCO3 30, O2 sat 96% Plan: - O2 support PRN -Bipap for acute hypercapnia -repeat ABG showed hypercapnia, will repeat ABG in the morning -Daily weights, strict I&Os, fluid restriction to 1500cc daily -Lasix 20mg IV BID -Echo ordered -Pt may take 1 hour breaks from Bipap during meals #Coccidioidomycosis -Cocci IgM is positive, pending UCD confirmatory test -Pt works in the [employer] -Started flucanazole 400mg Qday #Cirrhosis #Ascites, mild #Liver lesion, right lobe -CT abdomen/pelvis: Cirrhosis, 8 mm posterior right lobe liver lesion, mild ascites, anasarca, 8 mm posterior right lobe liver lesion -Pt endorses to drinking alcohol daily -AST and ALT with in normal limits -Pt will need outpatient follow up and referral to production operations inspector -Pt is advised on complete abstinence from alcohol #Umbilical hernia -12 mm fat-containing umbilical hernia -Pt denies abdominal pain, asymptomatic -Will need outpatient follow up Health Maintenance Disposition: telemetry, pt is requiring BiPap due to acute hypoxic hypercapnic respiratory failure DVT Prophylaxis: Heparin 5000 units SC Q8 hrs GI Prophylaxis: not indicated Diet: NPO for now since pt is on BiPAP, will advance diet once pt is off of Bipap Lines: Peripheral lines Code status: Full Assessment and plan discussed with my attending physician Dr. Cortney Roth (PGY-1)- Internal medicine resident Attending Provider Attestation/Addendum 43-year-old male with no previous medical history presented with shortness of breath and found to have acute hypoxic respiratory failure with generalized anasarca and pulmonary edema likely related to acute new onset CHF exacerbation. Currently, patient is on BiPAP and plan to start the patient on aggressive IV diuretic therapy. In addition, patient also tested positive for coccidiomycosis IgM for which plan to start fluconazole pending confirmatory [facility] testing. Overnight, patient is on aggressive IV diuretic therapy and net -4 L. I reviewed above note and agree with findings and plans. I have also personally examined the patient with medicine team and went over assessment and plan with medical team including international operations manager and resident physician.
--- NOTE | 2024-07-24 15:08 | PC.SS ---
SS met with patient regarding his d/c plan. Pt is alert/oriented. Pt was admitted for AHRF 2/2 CHF Exacerbation. Pt confirmed demographic and contact information is correct on facesheet. Pt resides with friends. Pt ambulates independently without assistance or DME. Pt is ok with all ADLs. Pt has cane which he utilizes when needed. Pt named his friend, Jean Pierre Lisa or Vitor Moe medical decision makers if he is unable. Patient?s choice is to return home upon d/c. Pt is currently on 5 liters of O2. Pt does not utilize O2 at home. SS has called Kristie from pt registration to update patient's facesheet with his next of kin and person to notify information. Pt states his friends will provide transportation home. SS provided pt with [facility] with appointment information. D/C plan: Return home Next of Kin: Jean Pierre Thomas, friend, phone# [phone] or Vitor Decker, friend, phone# [phone] PCP: Will follow up with [facility] 07-30-[address] Monaco Address: Correct on facesheet
[2024-07-24] MEDS: FUROSEMIDE INJ 10 MG/ML 4ML VIAL 20 MG IVP (21:08)
[2024-07-25] VITALS (11 sets, daily range): BP systolic 119–154; BP diastolic 85–112; PULSE 80–100; RESP 13–26; TEMP 36.2–37.4; O2SAT 91–97; BMI 35.3
[2024-07-25] MEDS: HEPARIN SOD INJ 5000 UNIT/ML VIAL SC ×3 (05:21→21:07)
[2024-07-25 05:37] LABS: Basophils % (Auto) 0 % (0-2.5); Eosinophils # (Auto) 0.1 Thou/mm3 (0.0-0.5); Eosinophils % (Auto) 2 % (0-10); Hematocrit 49.9 % (41.0-53.0); Immature Granulocytes % (Auto) 0 % (0-0); Immature Granulocytes Auto 0.02 Thou/mm3 (0.00-0.00); Lymphocytes # (Auto) 1.9 Thou/mm3 (1.0-4.8); Lymphocytes % (Auto) 20 % (10-50); Mean Corpuscular HGB Conc 32.1 g/dl (31.0-37.0); Mean Corpuscular Hemoglobin 30.2 pg (25.0-35.0); Mean Corpuscular Volume 94 fL (80-100); Monocytes # (Auto) 0.8 Thou/mm3 (0.0-0.8); Monocytes % (Auto) 9 % (0-12); Neutrophils # (Auto) 6.6 Thou/mm3 (1.8-7.7); Neutrophils % (Auto) 69 % (37-80); Nucleated Red Blood Cell % 0 /100 WBC (0); Platelet Count 268 Thou/mm3 (140-440); White Blood Count 9.5 Thou/mm3 (3.8-10.6)
[2024-07-25 06:10] LABS: Alanine Aminotransferase 32 U/L (10-49); Albumin, Serum 3.3 gm/dL (3.5-5.0); Albumin/Globulin Ratio 1.3 (1.2-2.2); Alkaline Phosphatase 59 U/L (46-116); Anion Gap 7 (7-16); Aspartate Amino Transferase 31 U/L (0-34); BUN/Creatinine Ratio 14 Ratio (12-20); Bilirubin,Total 1.3 mg/dL (0.3-1.2); Blood Urea Nitrogen 15 mg/dL (9-23); Calcium 8.6 mg/dL (8.3-10.6); Calcium (Corrected) 9.2 mg/dL (8.5-10.1); Carbon Dioxide 38.5 mMol/L (20.0-31.0); Chloride 97 mMol/L (98-107); Creatinine (Component) 1.1 mg/dL (0.6-1.3); Estimated Creatinine Clearance 108.7 mL/min (>60); Globulin 2.6 gm/dL (2.3-3.5); Glucose 89 mg/dL (74-106); Magnesium 1.8 mg/dL (1.6-2.6); Osmolality,Calculated 282 (275-295); Phosphorous 3.8 mg/dL (2.4-5.1); Potassium 3.6 mMol/L (3.4-5.1); Sodium 142 mMol/L (136-145); Total Protein 5.9 gm/dL (5.7-8.2); eGFR > 60 See Note
[2024-07-25 08:11] LABS: Base Excess 10 (-3-3); HCO3 38 mEq/L (20-26); Inspired O2, VO2 Liters 7 L/min; O2 Saturation 85 % (91-98); PCO2 63 mmHg (32.0-48.0)
[2024-07-25 08:16] LABS: Allen Test Performed/OK; PO2 52 mmHg (83-108); Puncture Site Left Radial
[2024-07-25] MEDS: FUROSEMIDE INJ 10 MG/ML 4ML VIAL 20 MG IVP (08:40)
[2024-07-25] MEDS: Artificial Tears 225 DROP/15 ML BTL BOTH EYES (08:41)
[2024-07-25] MEDS: FLUCONAZOLE 100 MG TABLET 400 MG PO (08:41)
--- NOTE | 2024-07-25 08:50 | PC.SS ---
Follow up note: Pt has lots of fluid. IV diuretics. Pt will return home upon dc.
[2024-07-25] MEDS: Magnesium Sulfate 4 GM Ivpb 4 GM/50 ML BAG IV (09:21)
[2024-07-25] MEDS: POTASSIUM CHL 10 mEq IVPB 10 MEQ/100 ML BAG 100 MEQ IV ×4 (10:26→13:59)
--- NOTE | 2024-07-25 11:26 | ESPR_ITS ---
Documentation for date of: 07/25/24 Subjective Subjective Interval history: No acute overnight events reported. Patient seen and examined at bedside this morning. Patient continues to use BiPAP throughout the night and daily but only takes 1 hour breaks during meals. Patient continues to endorse significant improvement of his symptoms. Patient denies any shortness of breath or palpitations. Patient's net balance is 1.9 L and total urine output was 3.5 L this morning. Vitals are stable labs are unremarkable with the exception of bicarb is 38.5, repeat ABG shows stable hypercapnia. Hypercapnia is likely from patient's chronic retention due to ALLI in the setting of obesity and bicarb elevation is likely due to diuretics therefore will decrease Lasix to 20 mg daily and continue to monitor daily CMP. Exam Vital Signs Temp Pulse Resp BP Pulse Ox O2 Del Method O2 Flow Rate 97.6 F 83 22 H 154/112 H 93 L BiPAP 4 07/25/24 08:00 07/25/24 08:40 07/25/24 08:00 07/25/24 08:40 07/25/24 08:00 07/25/24 08:00 07/25/24 04:00 FiO2 40 07/25/24 04:00 Narrative Exam GENERAL: A&Ox3 , middle ages obese male, Awake on Bipap , Not in acute distress NEURO: no focal neurological deficits noted HEENT: Atraumatic, Normocephalic. mucous membranes moist. Eyes open, symmetrical, & clear HEART: Normal Heart Sounds LUNGS: Clear to auscultation with no wheezing or crackles. ABDOMEN: soft, non-distended, non-tender, bowel sounds heard, no guarding or rebound tenderness, 2+ dependent edema around the abdomen SKIN: No Rash or ecchymoses EXTREMITIES: 2+ pitting edema noted in LE extending to abdomen, no tenderness, able to move all 4 extremities, pedal pulses palpated Objective Labs 07/29/24 05:21 07/29/24 05:21 Labs: Laboratory Results - last 24 hr 07/25/24 07/25/24 04:57 08:04 WBC 9.5 RBC 5.30 Hgb 16.0 Hct 49.9 MCV 94 MCH 30.2 MCHC 32.1 RDW Std Deviation 56.0 H Plt Count 268 Neut % (Auto) 69 Lymph % (Auto) 20 [place] % (Auto) 9 Eos % (Auto) 2 Baso % (Auto) 0 Neut # (Auto) 6.6 Lymph # (Auto) 1.9 [place] # (Auto) 0.8 Eos # (Auto) 0.1 Baso # (Auto) 0.0 Immature Gran # (Auto) 0.02 H Absolute Nucleated RBC 0.00 Immature Gran % 0 Nucleated RBC % 0 Puncture Site Left Radial ABG pH 7.40 ABG pCO2 63 H ABG pO2 52 L* ABG HCO3 38 H ABG O2 Saturation 85 L ABG Base Excess 10 H Oxygen Liter Flow 7 Sodium 142 Potassium 3.6 D Chloride 97 L Carbon Dioxide 38.5 H Anion Gap 7 BUN 15 Creatinine 1.1 Estim Creat Clear Calc 108.7 eGFR > 60 BUN/Creatinine Ratio 14 Glucose 89 Calculated Osmolality 282 Calcium 8.6 Corrected Calcium 9.2 Phosphorus 3.8 Magnesium 1.8 Total Bilirubin 1.3 H AST 31 ALT 32 Alkaline Phosphatase 59 Total Protein 5.9 Albumin 3.3 L Globulin 2.6 Albumin/Globulin Ratio 1.3 ABG Interpretation ABG results: 07/23/24 07/23/24 07/24/24 08:41 14:36 08:48 ABG pH 7.30 L 7.29 L 7.37 ABG pCO2 61 H 67 H 67 H ABG pO2 96 101 63 L D ABG HCO3 30 H 32 H 38 H ABG O2 Saturation 96 96 90 L ABG Base Excess 2 3 9 H 07/25/24 08:04 ABG pH 7.40 ABG pCO2 63 H ABG pO2 52 L* ABG HCO3 38 H ABG O2 Saturation 85 L ABG Base Excess 10 H Quality Measures Quality Measures none Assessment & Plan Assessment Current Active Medications: Generic Name Dose Route Start Last Admin Trade Name Freq PRN Reason Stop Dose Admin Acetaminophen 650 mg 07/24/24 11:41 Acetaminophen 325 Mg Tablet PO 08/22/24 11:57 Q6H PRN Fever >100.3 Albuterol/Ipratropium 3 ml 07/23/24 16:00 Albuterol/Ipratropium (Duoneb) Rt Unique 3 Ml Nebu INH 08/22/24 12:59 Q6HRRT PRN SHORTNESS OF BREATH OR WHEEZE Artificial Tears 0 drop 07/25/24 08:23 07/25/24 08:41 Artificial Tears 225 Drop/15 Ml Btl BOTH EYES 08/24/24 08:22 2 drops PRN PRN Administration TO KEEP EYES MOIST Fluconazole 400 mg 07/23/24 14:00 07/25/24 08:41 Fluconazole 100 Mg Tablet PO 07/30/24 13:59 400 mg QDAY LIANG Administration Furosemide 20 mg 07/24/24 21:00 07/25/24 08:40 Furosemide Inj 10 Mg/Ml 4ml Vial IVP 08/23/24 20:59 20 mg BID LIANG Administration Heparin Sodium (Porcine) 5,000 unit 07/23/24 14:00 07/25/24 05:21 Heparin Sod Inj 5000 Unit/Ml Vial SC 08/06/24 13:59 5,000 unit Q8HR LIANG Administration Magnesium Sulfate 4 gm in 50 mls @ 12.5 mls/hr 07/25/24 09:06 07/25/24 09:21 Magnesium Sulfate Ivpb IV 07/25/24 13:05 12.5 mls/hr X1 ONE Administration Potassium Chloride 10 meq in 100 mls @ 100 mls/hr 07/25/24 09:46 07/25/24 10:26 Kcl Ivpb IV 07/25/24 13:45 100 mls/hr Q1H LIANG Administration Ondansetron HCl 4 mg 07/23/24 11:58 Ondansetron Inj 2 Mg/Ml Inj 2 Ml IVP 08/22/24 11:57 Q6H PRN NAUSEA OR VOMITING Protocol Plan Mr. Boudreaux is a 43 year old male with no known past medical history presented to the ED complaining of worsening shortness of breath. Pt is admitted for management of acute hypoxic hypercapnic respiratory failure secondary to CHF exacerbation requiring Bipap and IV diuretics. #Acute Hypoxic hypercapnic respiratory failure 2/2 to #Acute exacerbation of CHF, HFpEF EF 50-55% #Right heart failure #ALLI #Anasarca Pt complains of progressively worsening exertional shortness of breath started June 15, denies orthpnea and PND. Pt also noted abdominal bloating BNP 638, troponin <0.020 Chest x-ray: Moderate enlargement cardiac contour, mild vascular congestion EKG: Sinus tachycardia with rate of [address] abdomen/pelvis: Cirrhosis, 8 mm posterior right lobe liver lesion, mild ascites, anasarca, 12 mm fat-containing umbilical hernia ABG on admission : pH 7.30, CO2 61, pO2 96, HCO3 30, O2 sat 96% Echo done on 07/24/24 Right heart failure most likely secondary to pulmonary HTN based on the echo findings, likely due to ALLI due to obesity Plan: -O2 support PRN -Bipap for acute hypercapnia -Repeat ABG showed hypercapnia -Daily weights, strict I&Os, fluid restriction to 1500cc daily -Lasix 20mg IV Qday -Pt may take 1 hour breaks from Bipap during meals -Consulted Cardiology, appreciate recommendations #Coccidioidomycosis -Cocci IgM is positive, pending UCD confirmatory test -Pt works in the [employer] -Started flucanazole 400mg Qday #Cirrhosis #Ascites, mild #Liver lesion, right lobe -CT abdomen/pelvis: Cirrhosis, 8 mm posterior right lobe liver lesion, mild ascites, anasarca, 8 mm posterior right lobe liver lesion -Pt endorses to drinking alcohol daily -AST and ALT with in normal limits -Pt will need outpatient follow up and referral to air pollution compliance inspector -Pt is advised on complete abstinence from alcohol #Umbilical hernia -12mm fat-containing umbilical hernia -Pt denies abdominal pain, asymptomatic -Will need outpatient follow up Health Maintenance Disposition: telemetry, pt is requiring BiPap due to acute hypoxic hypercapnic respiratory failure DVT Prophylaxis: Heparin 5000 units SC Q8 hrs GI Prophylaxis: not indicated Diet: NPO for now since pt is on BiPAP, will advance diet once pt is off of Bipap Lines: Peripheral lines Code status: Full Assessment and plan discussed with my attending physician Dr. Cortney Roth ([id number])- Internal medicine resident Attending Provider Attestation/Addendum 43-year-old male with no previous medical history presented with shortness of breath and found to have acute hypoxic respiratory failure with generalized anasarca and pulmonary edema likely related to acute new onset CHF exacerbation. In the ER, patient is on BiPAP and plan to start the patient on aggressive IV diuretic therapy. In addition, patient also tested positive for coccidiomycosis IgM for which plan to start fluconazole pending confirmatory [place] testing. As of now, patient continues to have significant anasarca with diffuse crackles requiring IV diuretic therapy. Continues to require close monitoring in telemetry as there is a risk for respiratory decompensation. I reviewed above note and agree with findings and plans. I have also personally examined the patient with medicine team and went over assessment and plan with medical team including senior insight manager international and resident physician.
--- NOTE | 2024-07-25 14:38 | PD.RESCONSUL ---
HPI Data of Consult Requesting Physician: Sara Barr MD Admitting Provider: Sara Barr MD Attending Provider: Sara Barr MD Primary Care Provider: Physician No Primary/Family Consult Narrative History of present illness: cc: SOB Patient has a limited past medical history, who is denying hypertension and diabtes. Patient presented to the emergy room with chief complain of shortness of breath and worsened by exertion for over 1 month. Patient stated past smoking history and quit about 15 years ago, starting in his early 20s. Patient drinks about 8, 12 oz-beers daily. Patient was admitted for new onset on CHF exacerbation. ED course: In the ED pt's initial BP 165/127, HR 97, O2 91% on room air Lab findings include: CBC WNL with the exception of Hgb 16.9, Hct 54.1 CMP is unremarkable, BNP 638, D-dimer 987 ABG: pH 7.30, CO2 61, pO2 96, HCO3 30, O2 sat 96% CT abdomen/pelvis: Cirrhosis, 8 mm posterior right lobe liver lesion, mild ascites, anasarca, 12 mm fat-containing umbilical hernia CTA of chest: Mild heart failure, pulmonary artery hypertension, negative for PE Chest x-ray: Moderate enlargement cardiac contour, mild vascular congestion EKG: Sinus tachycardia with rate of 104 and QTc 410, possible right ventricular hypertrophy PMH: Denied chronic conditions, per chart review guillain barre syndrome Past Surgical History: Denied Past Family History: Unknown by patient Home Medication: None Social History: Alcohol Use, 8 beers daily, 12 oz Smoking history quit 15 years ago, started early 20s-30s. 10 pack year history Marijuana use Allergies: Nne cc:: cc: Sara Barr MD Review of Systems Constitutional Comments: General appearance: NO weight change, NO fatigue, NO weakness, NO fever, NO chills, NO night sweats, No cough Skin: NO rash, NO itching, NO sores, NO moles HEENT: NO Trauma, NO nausea, NO vomiting, NO visual changes, NO blurry vision, NO double vision, NO tinnitus, NO vertigo, NO ear discharge, NO rhinorrhea, NO stuffiness, NO sneezing, NO allergy, NO epistaxis. NO Hoarseness, NO sore throat, NO swollen neck. Cardiac: NO Palpitations, NO dyspnea on exertion, NO orthopnea, NO paroxysmal nocturnal dyspnea, NO edema Respiratory: YES Shortness of Breath, NO Wheezing, NO Cough, NO Sputum, NO hemoptysis GI:NO appetite, NO nausea, NO vomiting, NO dysphagia, NO changes in bowel frequency, NO stool color, NO diarrhea, NO constipation, NO hemetemesis, NO hemorrhoids, NO melena, NO hematechezia, NO abdominal pain, NO jaundice Renal: NO frequency, NO hesitancy, NO urgency, NO hematuria, NO nocturia, NO incontinence MSK: NO muscle weakness, NO gout, NO arthritis, NO muscle stiffness Neuro: NO headaches, NO tremors, NO weakness, NO paralysis, NO seizures, NO loss of consciousness, NO numbness. Hem: NO anemia, NO easy bruising/bleeding, NO petechiae, NO purpura Endo: NO heat/cold intolerance, NO excessive sweating, NO polyuria, NO polydipsia, NO polyphagia, NO thyroid problems, NO diabetes Pysch: NO mood, NO anxiety, NO depression Exam Vital Signs Temp Pulse Resp BP Pulse Ox O2 Del Method O2 Flow Rate 97.2 F 93 26 H 139/93 H 91 L BiPAP 6 07/25/24 12:00 07/25/24 12:17 07/25/24 12:17 07/25/24 12:00 07/25/24 12:17 07/25/24 12:00 07/25/24 12:17 FiO2 40 07/25/24 04:00 Narrative Exam General Appearance: Alert & Oriented X3, well-nourished male who is lying in bed in no acute distress HEENT: Skull symmetrical and atraumatic. Conjunctivae pink and moist. Pupils equal, round, reactive to light and accommodation (PERRL). External ear without lesion or discharge. Straight, nares patient, mucosa pink, no discharge. No thyroid nodule appreciated. No cervical lymphadenopathy. Cardio: Normal Rate and Rhythm with S1 and S2 heart sounds. No murmurs or extra heart sounds auscultated. No bruits on carotid auscultation. No peripheral edema or cyanosis. Lungs: Symmetric with good expansion. Chest and back non-tender. Breath sounds vesicular with mild crackles Abdomen: Non-tender, Non-distended, Normal Reactive Bowel Sounds Neuro: Alert, cooperative, oriented to person, place, and time. Speech clear. CN grossly intact. Upper motor strength 5/5 and Lower motor strength 5/5. Sensation intact. Results Labs 07/27/24 04:30 07/27/24 04:30 Labs: Short CBC 07/25/24 Range/Units 04:57 WBC 9.5 (3.8-10.6) Thou/mm3 Hgb 16.0 (13.5-16.0) g/dL Hct 49.9 (41.0-53.0) % Plt Count 268 (140-440) Thou/mm3 BMP 07/25/24 04:57 Sodium 142 Potassium 3.6 D Chloride 97 L Carbon Dioxide 38.5 H BUN 15 Creatinine 1.1 Glucose 89 Calcium 8.6 Liver Function 07/25/24 Range/Units 04:57 Total Bilirubin 1.3 H (0.3-1.2) mg/dL AST 31 (0-34) U/L ALT 32 (10-49) U/L Alkaline Phosphatase 59 (46-116) U/L Albumin 3.3 L (3.5-5.0) gm/dL ABG Interpretation ABG results: 07/23/24 07/23/24 07/24/24 08:41 14:36 08:48 ABG pH 7.30 L 7.29 L 7.37 ABG pCO2 61 H 67 H 67 H ABG pO2 96 101 63 L D ABG HCO3 30 H 32 H 38 H ABG O2 Saturation 96 96 90 L ABG Base Excess 2 3 9 H 07/25/24 08:04 ABG pH 7.40 ABG pCO2 63 H ABG pO2 52 L* ABG HCO3 38 H ABG O2 Saturation 85 L ABG Base Excess 10 H Quality Measures Quality Measures none Medications Home Medications and Allergies Home Medications ?Medication ?Instructions ?Recorded ?Confirmed ?Type No Known Home Medications 07/23/24 07/23/24 History Allergies Allergy/AdvReac Type Severity Reaction Status Date / Time No Known Allergies Allergy Unverified 07/24/24 08:07 Visit Medications Acetaminophen (Acetaminophen 325 Mg Tablet) 650 mg PO Q6H PRN PRN Reason: Fever >100.3 Stop: 08/22/24 11:57 Albuterol/Ipratropium (Albuterol/Ipratropium (Duoneb) Rt Unique 3 Ml Nebu) 3 ml INH Q6HRRT PRN PRN Reason: SHORTNESS OF BREATH OR WHEEZE Stop: 08/22/24 12:59 Artificial Tears (Artificial Tears 225 Drop/15 Ml Btl) 0 drop BOTH EYES PRN PRN PRN Reason: TO KEEP EYES MOIST Stop: 08/24/24 08:22 Last Admin: 07/25/24 08:41 Dose: 2 drops Fluconazole (Fluconazole 100 Mg Tablet) 400 mg PO QDAY [facility] Stop: 07/30/24 13:59 Last Admin: 07/25/24 08:41 Dose: 400 mg Furosemide (Furosemide Inj 10 Mg/Ml 4ml Vial) 20 mg IVP BID [facility] Stop: 08/23/24 20:59 Last Admin: 07/25/24 08:40 Dose: 20 mg Heparin Sodium (Porcine) (Heparin Sod Inj 5000 Unit/Ml Vial) 5,000 unit SC Q8HR [facility] Stop: 08/06/24 13:59 Last Admin: 07/25/24 13:29 Dose: 5,000 unit Ondansetron HCl (Ondansetron Inj 2 Mg/Ml Inj 2 Ml) 4 mg IVP Q6H PRN; Protocol PRN Reason: NAUSEA OR VOMITING Stop: 08/22/24 11:57 Discontinued Medications Acetaminophen (Acetaminophen 325 Mg Tablet) 650 mg PO Q6H PRN PRN Reason: Fever >101.5 Stop: 08/22/24 11:57 Acetazolamide (Acetazolamide 250 Mg Tablet) 500 mg PO X1 ONE Stop: 07/24/24 08:05 Last Admin: 07/24/24 08:37 Dose: 500 mg Albuterol/Ipratropium (Albuterol/Ipratropium (Duoneb) Rt Unique 3 Ml Nebu) 3 ml INH X1 ONE Stop: 07/23/24 07:57 Last Admin: 07/23/24 08:33 Dose: 3 ml Albuterol/Ipratropium (Albuterol/Ipratropium (Duoneb) Rt Unique 3 Ml Nebu) 3 ml INH Q6HRRT [facility] Stop: 08/22/24 12:59 Last Admin: 07/23/24 12:30 Dose: 3 ml Clonidine (Clonidine Hcl 0.1 Mg Tablet) 0.2 mg PO X1 ONE Stop: 07/23/24 07:59 Last Admin: 07/23/24 08:34 Dose: 0.2 mg Furosemide (Furosemide Inj 10 Mg/Ml 4ml Vial) 40 mg IVP X1 ONE Stop: 07/23/24 10:00 Last Admin: 07/23/24 10:35 Dose: 40 mg Furosemide (Furosemide Inj 10 Mg/Ml 4ml Vial) 40 mg IVP X1 ONE Stop: 07/23/24 14:01 Last Admin: 07/23/24 14:48 Dose: 40 mg Furosemide (Furosemide Inj 10 Mg/Ml 4ml Vial) 40 mg IVP BID [facility] Stop: 08/23/24 08:59 Last Admin: 07/24/24 08:21 Dose: 40 mg Furosemide (Furosemide Inj 10 Mg/Ml 4ml Vial) 40 mg IVP X1 ONE Stop: 07/23/24 21:01 Last Admin: 07/23/24 21:06 Dose: 40 mg Sodium Chloride (Ns) 1,000 mls @ 999 mls/hr IV .Q1H1M ONE Stop: 07/23/24 08:56 Last Infusion: 07/23/24 09:53 Dose: Infused Magnesium Sulfate (Magnesium Sulfate Ivpb) 4 gm in 50 mls @ 12.5 mls/hr IV X1 ONE Stop: 07/25/24 13:05 Last Admin: 07/25/24 09:21 Dose: 12.5 mls/hr Potassium Chloride (Kcl Ivpb) 10 meq in 100 mls @ 100 mls/hr IV Q1H [facility] Stop: 07/25/24 13:45 Last Admin: 07/25/24 13:59 Dose: 100 mls/hr Methylprednisolone Sodium Succinate (Methylprednisolone Sod Succ 62.5 Mg/Ml 2ml Vial) 125 mg IVP X1 ONE Stop: 07/23/24 07:57 Last Admin: 07/23/24 08:36 Dose: 125 mg Metoprolol Tartrate (Metoprolol Tartrate 25 Mg Tablet) 25 mg PO X1 ONE Stop: 07/23/24 07:59 Last Admin: 07/23/24 08:34 Dose: 25 mg Morphine Sulfate (Morphine Sulf Inj 10 Mg/Ml Vial) 2 mg IVP X1 ONE Stop: 07/23/24 10:00 Last Admin: 07/23/24 10:38 Dose: Not Given Nitroglycerin (Nitroglycerin Oint 2% 1 Inch Packet) 1 inch TOP X1 ONE Stop: 07/23/24 10:00 Last Admin: 07/23/24 10:42 Dose: 1 inch Ondansetron HCl (Ondansetron Inj 2 Mg/Ml Inj 2 Ml) 4 mg IVP X1 ONE; Protocol Stop: 07/23/24 07:57 Last Admin: 07/23/24 10:37 Dose: Not Given Assessment & Plan Plan #Acute Hypercapnic Respiratory Failure #Congestive Heart Failure, new onset #CHF HFpEF 50% to 55% #Pulmonary Artery Enlargment #Moderate RV systolic Dysfunction #Moderate Right Pleural Effusion Isolated right heart systolic dysfunction with enlarged main pulmonary artery and normal RVSP 31 mmhg, may be secondary to cirrhosis but inferior vena cava and hepatic veins do not appear distended vs meth use although patient denied history, consider utox vs PE give D-Dimer although less likely given CTA Chest negative vs ALLI can not be ruled out Patient may benefit from cath. Given small to moderate effusion, patient may benefit form CT guided thoracetesis given. Echo (07/25/2024): Right atrium is mildly dilated. Right ventricle is markedly dilated Right ventricle dimension is equal to left ventricle dimension with moderate RV systolic dysfunction.Left ventricle is normal in dimension there is evidence of flattening of the septum D-shaped septum with paradoxical motion due to increased RV pressure and dimension. Overall left-sided function is preserved ejection fraction 50 to 55%. Mild tricuspid regurgitation. RV systolic pressure is normal 35 mmHg but based on the appearance RV pressure appears to be higher than the left There is evidence of a small Circumferencial Pericardial Effusion. No evidence of cardiac tamponade. Inferior vena cava pulmonary and hepatic veins appear normal Enlarged Main Pulmonary Artery 4.5 TSH 0.94, A1c 6.1 % BNP 638 Lipid Panel (07/24/2024): Triglycerides 77, Cholesterol 121, LDL 76, HDL 30 07/25/2024: 1620/3550/-1930 NYHA Class: II ASCVD: 1.9%, no statins recommend Plan: -Lasix 20 mg IV qday -Consider consult with Pul-Crit -Consider HIV panel and DOLORES -consider Utox -K>4 and Mg >2 -SpO <90%, support PRN -Daily Weights, Strict Ins and Outs, Fluid Striction (1500ml), Sodium Restriction 2 grams per day -Cardiology Consult, appreciate recommendations. -Right heart failure, lasix for now, consider increasing to 40 IV if work of breathing does not improve #Cirrhosis, decompensated with MIld Ascites, likely secondary to alcohol use On admission CT abdomen noted for cirrhosis with mild ascites. Cirrhosis likely secondary to alcohol use disorder as patient typically drinks 8 beers of 12 ounce cans daily vs cirrhosis secondary to right heart failure. Diagnostics PT 13, INR 1.2, PTT 29.6, 07/24/2024 AST is 24, ALT 25, albumin 3.5 Child-Crespo Score 7 points, Child Class B, Abdominal surgery lindy-operative mortality 30% Plan -Consider Spirnolactone, as mild ascites noted. -Continue to monitor AST's and ALT's. -Consider hepatitis panel - Patient would benefit from GI consult as outpatient liver biopsy #Cocci Patient positive for IgM Plan -Fluconazole started. #Incidential 12 mm fat-containing umbilical hernia #18 mm posterior right lobe liver lesion, recommend elective MRI abdomen follow-up pre and postcontrast Health Maintenance: Disp: Pt is currently admitted to floors for further management of acute CHF exacerbation, cardiology consulted FEN: cardiac diet DVT: on subQ heparin q8HRs Code: Full Code - The patient's plan was discussed with attending Dr. Jonathan Butler MD PGY1 Internal Medicine Attending Provider Attestation/Addendum I have personally seen and examined the patient separately on the above date of service and discussed the plan of care with the resident. I reviewed the resident Dr. Annie Butler consultation progress note and agree with the resident findings and plan in the note above and have also edited the documentation to reflect my findings and plan. A 43-year-old male with a past medical history of morbid obesity, significant alcohol abuse drinking 8-12 beers per day, ex-smoker with at least [id number] smoking history, possible ALLI or pickwickian syndrome, not on any medications and does not follow-up with doctors regularly presented to the emergency department for worsening shortness of breath over the last month along with some leg swelling. Initial workup in the emergency department did show elevated blood pressure 165/127 mmHg and continues to be elevated, heart rate 107 bpm, saturation of only 90% on room air. CBC showed elevated hemoglobin at 16.9, normal platelets and WBC, CMP showed normal kidney function and normal electrolytes. BNP was elevated at 638.. Troponin was negative x 2. D-dimer elevated 987. CTA chest showed pulmonary hypertension but no evidence of PE and mild heart failure. Chest x-ray showed cardiomegaly with mild vascular congestion. EKG showed sinus tachycardia at 104 bpm with possible RVH and QTc was normal. CTA abdomen pelvis showed possible cirrhosis of the liver with 8 mm posterior right lower lobe lesion along with mild ascites and anasarca 12 mm umbilical hernia. Cardiology was consulted for abnormal echo. Assessments and plan: 1. Acute hypercapnic and hypoxic respiratory failure requiring mechanical ventilation with BiPAP 2. New onset CHF exacerbation secondary to HFpEF 1 diastolic dysfunction stage II and possible right heart failure 3. Moderate pulmonary hypertension 4. Cirrhosis of the liver with mild ascites and anasarca-new diagnosis 5. Fluid overload and anasarca 6. Moderate right pleural effusion 7. Right lower lobe lesion-18 mm 8. Morbid obesity 9. Significant alcohol abuse with more than 8-12 beers per day for many years 10. Ex-smoker with more than [id number] smoking history 11. Possible COPD-never diagnosed previously 12. Possible sleep apnea with possible pickwickian syndrome secondary to obesity-never tested 13. Uncontrolled hypertension-untreated 14. Prediabetes with A1c of 6.1 15. Polycythemia with hemoglobin of 16 mostly secondary to his smoking and obesity with chronic hypoxia Cardiology was consulted for abnormal echo withEcho (07/25/2024): Right atrium is mildly dilated. Right ventricle is markedly dilated Right ventricle dimension is equal to left ventricle dimension with moderate RV systolic dysfunction.Left ventricle is normal in dimension there is evidence of flattening of the septum D-shaped septum with paradoxical motion due to increased RV pressure and dimension. Overall left-sided function is preserved ejection fraction 50 to 55%. Mild tricuspid regurgitation. RV systolic pressure is normal 35 mmHg but based on the appearance RV pressure appears to be higher than the left There is evidence of a small Circumferencial Pericardial Effusion. No evidence of cardiac tamponade. Enlarged Main Pulmonary Artery Echo shows evidence of pulmonary hypertension with D-shaped septum in both systole and diastole including both pressure and volume overload. RVSP was only measured at 35 mmHg but patient at least has moderate PAH. His moderate PAH is mostly secondary to multifactorial etiology including his morbid obesity with possible sleep apnea and pickwickian syndrome along with possible COPD with more than 10 pack years of smoking history and diastolic dysfunction stage II. Possible group 2 and group 3 PAH. Patient is significantly volume overloaded as noted with mild to moderate congestion on the chest x-ray as well as a CT and peripheral edema. Recommend to continue aggressive diuresis with Lasix 40 mg IV once daily and uptitrate it based on the renal function. Also on purulent Bactrim given his anasarca, ascites at with cirrhosis. Strict input output Daily weights and 2 g sodium diet. Patient has acute hypercapnic and hypoxic respiratory failure as evidenced by the ABG on presentation with a PCO2 of around 68 mmHg. Patient does have underlying COPD given his history of smoking as well as a morbid obesity and will need further evaluation with the PFTs. Recommend to continue BiPAP and recommend also pulmonary consultation for the patient aggressive treatment of the COPD with short acting as well as long-acting inhalers. Further management as per primary team. Patient also has hypoxic compartment along with congestion as noted in the chest x-ray and recommend to continue with IV diuresis for now. Patient should also be tested for sleep apnea as outpatient and if ALLI present should be treated accordingly. He also has possible pickwickian syndrome. Patient does have significant history of alcohol abuse with 8-12 beers per day for many years-couple of decades. CT abdomen pelvis showed possible cirrhosis of liver along with anasarca and 18 mm right lower lobe lesion. MELD score is 7 and child class B. Workup as per primary and recommend GI consult for the patient. Started on p.o. spironolactone also. Patient has uncontrolled blood pressure since arrival and has no history of hypertension and does not take any meds. Patient is also fluid overloaded and continue with dialysis for now and if required patient to be started on amlodipine and then later can be started on ARB's. Patient also has significant hypoxia and is being tested for coccidiomycosis coccidiomycosis. Patient counseled at length regarding to completely quit his alcohol use and recommend to continue to quit smoking. Check U tox for other substance abuse. Management of rest of the medical conditions as per primary team and other consultants. Thank you for the consult and allowing me to participate in the care of the patient. Cardiology will continue to follow. Marcus Castillo M.D. Interventional Cardiology
[2024-07-26] VITALS (10 sets, daily range): BP systolic 122–151; BP diastolic 91–109; PULSE 88–113; RESP 18–27; TEMP 36.3–37.3; O2SAT 89–96; BMI 33.7
[2024-07-26] MEDS: HEPARIN SOD INJ 5000 UNIT/ML VIAL SC ×3 (05:10→22:30)
[2024-07-26 06:21] LABS: Basophils % (Auto) 0 % (0-2.5); Eosinophils # (Auto) 0.1 Thou/mm3 (0.0-0.5); Eosinophils % (Auto) 1 % (0-10); Hematocrit 50.1 % (41.0-53.0); Immature Granulocytes % (Auto) 0 % (0-0); Immature Granulocytes Auto 0.03 Thou/mm3 (0.00-0.00); Lymphocytes # (Auto) 1.2 Thou/mm3 (1.0-4.8); Lymphocytes % (Auto) 12 % (10-50); Mean Corpuscular HGB Conc 31.9 g/dl (31.0-37.0); Mean Corpuscular Hemoglobin 29.8 pg (25.0-35.0); Mean Corpuscular Volume 93 fL (80-100); Monocytes % (Auto) 10 % (0-12); Neutrophils # (Auto) 7.8 Thou/mm3 (1.8-7.7); Neutrophils % (Auto) 77 % (37-80); Nucleated Red Blood Cell % 0 /100 WBC (0); Platelet Count 270 Thou/mm3 (140-440); RDW Standard Deviation 55.6 fL (35.1-43.9); Red Blood Count 5.37 Miln/mm3 (4.50-5.90); White Blood Count 10.1 Thou/mm3 (3.8-10.6)
[2024-07-26 06:44] LABS: Alanine Aminotransferase 31 U/L (10-49); Albumin, Serum 3.5 gm/dL (3.5-5.0); Albumin/Globulin Ratio 1.3 (1.2-2.2); Alkaline Phosphatase 63 U/L (46-116); Anion Gap 8 (7-16); Aspartate Amino Transferase 24 U/L (0-34); BUN/Creatinine Ratio 12 Ratio (12-20); Bilirubin,Total 1.4 mg/dL (0.3-1.2); Blood Urea Nitrogen 11 mg/dL (9-23); Calcium 8.6 mg/dL (8.3-10.6); Carbon Dioxide 34.2 mMol/L (20.0-31.0); Chloride 98 mMol/L (98-107); Creatinine (Component) 0.9 mg/dL (0.6-1.3); Estimated Creatinine Clearance 128.5 mL/min (>60); Globulin 2.8 gm/dL (2.3-3.5); Glucose 91 mg/dL (74-106); Magnesium 2.2 mg/dL (1.6-2.6); Osmolality,Calculated 278 (275-295); Phosphorous 3.2 mg/dL (2.4-5.1); Potassium 3.9 mMol/L (3.4-5.1); Sodium 140 mMol/L (136-145); Total Protein 6.3 gm/dL (5.7-8.2); eGFR > 60 See Note
[2024-07-26] MEDS: FLUCONAZOLE 100 MG TABLET 400 MG PO (08:20)
[2024-07-26] MEDS: POTASSIUM CHLORIDE 20 mEq TABCR PO (08:21)
[2024-07-26] MEDS: FUROSEMIDE INJ 10 MG/ML 4ML VIAL 20 MG IVP (08:21)
--- NOTE | 2024-07-26 11:03 | PC.NURSE ---
Notified Dr. Martin from team B of pt complaint of significant left calf pain. Said they will come see pt at bedside
--- NOTE | 2024-07-26 13:04 | ESPR_ITS ---
Documentation for date of: 07/26/24 Subjective Subjective Interval history: cc: SOB Patient has a limited past medical history, who is denying hypertension and diabtes. Patient presented to the emergy room with chief complain of shortness of breath and worsened by exertion for over 1 month. Patient stated past smoking history and quit about 15 years ago, starting in his early 20s. Patient drinks about 8, 12 oz-beers daily. Patient was admitted for new onset on CHF exacerbation. 07/26/2024: Patient examined at bedside this morning. Patient off bipap and currently on 6 liters of NC with SpO2 of 91%. Patient denied shortness of breath, but has not ambulated. Patient denied chest pain. Improved peripheral edema. Given small to moderate pleural effusion, increase consider increasing Lasix 20 mg IV to Lasix 40 mg IV qday, continue to monitor kidney function. Consider starting spirnolactone at lower dose 12.5 mg qday. Exam Vital Signs Temp Pulse Resp BP Pulse Ox O2 Del Method O2 Flow Rate 97.4 F 89 23 H 143/99 H 96 Nasal Cannula 6 07/26/24 12:00 07/26/24 12:37 07/26/24 12:37 07/26/24 12:00 07/26/24 12:37 07/26/24 12:00 07/26/24 12:00 FiO2 40 07/26/24 12:37 Narrative Exam General Appearance: Alert & Oriented X3, well-nourished male who is lying in bed in no acute distress HEENT: Skull symmetrical and atraumatic. Conjunctivae pink and moist. Scleral icterus noted. Pupils equal, round, reactive to light and accommodation (PERRL). External ear without lesion or discharge. Straight, nares patient, mucosa pink, no discharge. No thyroid nodule appreciated. No cervical lymphadenopathy. Cardio: Normal Rate and Rhythm with S1 and S2 heart sounds. No murmurs or extra heart sounds auscultated. No bruits on carotid auscultation. No peripheral edema or cyanosis. Lungs: Symmetric with good expansion. Chest and back non-tender. Breath sounds vesicular with mild crackles Abdomen: Non-tender, Non-distended, Normal Reactive Bowel Sounds Neuro: Alert, cooperative, oriented to person, place, and time. Speech clear. CN grossly intact. Upper motor strength 5/5 and Lower motor strength 5/5. Sensation intact. Objective Labs 07/27/24 04:30 07/27/24 04:30 Labs: Laboratory Results - last 24 hr 07/26/24 04:30 WBC 10.1 RBC 5.37 Hgb 16.0 Hct 50.1 MCV 93 MCH 29.8 MCHC 31.9 RDW Std Deviation 55.6 H Plt Count 270 Neut % (Auto) 77 Lymph % (Auto) 12 [place] % (Auto) 10 Eos % (Auto) 1 Baso % (Auto) 0 Neut # (Auto) 7.8 H Lymph # (Auto) 1.2 [place] # (Auto) 1.0 H Eos # (Auto) 0.1 Baso # (Auto) 0.0 Immature Gran # (Auto) 0.03 H Absolute Nucleated RBC 0.00 Immature Gran % 0 Nucleated RBC % 0 Sodium 140 Potassium 3.9 Chloride 98 Carbon Dioxide 34.2 H Anion Gap 8 BUN 11 Creatinine 0.9 Estim Creat Clear Calc 128.5 eGFR > 60 BUN/Creatinine Ratio 12 Glucose 91 Calculated Osmolality 278 Calcium 8.6 Corrected Calcium 9.0 Phosphorus 3.2 Magnesium 2.2 Total Bilirubin 1.4 H AST 24 ALT 31 Alkaline Phosphatase 63 Total Protein 6.3 Albumin 3.5 Globulin 2.8 Albumin/Globulin Ratio 1.3 ABG Interpretation ABG results: 07/23/24 07/23/24 07/24/24 08:41 14:36 08:48 ABG pH 7.30 L 7.29 L 7.37 ABG pCO2 61 H 67 H 67 H ABG pO2 96 101 63 L D ABG HCO3 30 H 32 H 38 H ABG O2 Saturation 96 96 90 L ABG Base Excess 2 3 9 H 07/25/24 08:04 ABG pH 7.40 ABG pCO2 63 H ABG pO2 52 L* ABG HCO3 38 H ABG O2 Saturation 85 L ABG Base Excess 10 H Quality Measures Quality Measures none Assessment & Plan Assessment Current Active Medications: Generic Name Dose Route Start Last Admin Trade Name Freq PRN Reason Stop Dose Admin Acetaminophen 650 mg 07/24/24 11:41 Acetaminophen 325 Mg Tablet PO 08/22/24 11:57 Q6H PRN Fever >100.3 Albuterol/Ipratropium 3 ml 07/23/24 16:00 Albuterol/Ipratropium (Duoneb) Rt Unique 3 Ml Nebu INH 08/22/24 12:59 Q6HRRT PRN SHORTNESS OF BREATH OR WHEEZE Artificial Tears 0 drop 07/25/24 08:23 07/25/24 08:41 Artificial Tears 225 Drop/15 Ml Btl BOTH EYES 08/24/24 08:22 2 drops PRN PRN Administration TO KEEP EYES MOIST Fluconazole 400 mg 07/23/24 14:00 07/26/24 08:20 Fluconazole 100 Mg Tablet PO 07/30/24 13:59 400 mg QDAY LIANG Administration Furosemide 20 mg 07/27/24 09:00 Furosemide Inj 10 Mg/Ml Vial 2 Ml IVP 08/25/24 08:59 QDAY LIANG Heparin Sodium (Porcine) 5,000 unit 07/23/24 14:00 07/26/24 05:10 Heparin Sod Inj 5000 Unit/Ml Vial SC 08/06/24 13:59 5,000 unit Q8HR LIANG Administration Ondansetron HCl 4 mg 07/23/24 11:58 Ondansetron Inj 2 Mg/Ml Inj 2 Ml IVP 08/22/24 11:57 Q6H PRN NAUSEA OR VOMITING Protocol Plan Patient is a 43 year old male with a limited past medical history. Patient was admitted with new onset of CHF, found to have HFpEF 50 to 55%, Pulmonary Artery Enlargment, and Moderate RV Systolic Dysfunction. Cardiology consulted for pulmonary artery largment and RV Systolic Dysfunction. #Acute Hypercapnic Respiratory Failure #Congestive Heart Failure, new onset #CHF HFpEF 50% to 55% #Pulmonary Artery Enlargment #Moderate RV systolic Dysfunction #Moderate Right Pleural Effusion #ALLI/OHS Isolated right heart systolic dysfunction w enlarged main pulmonary artery and normal RVSP 31 mmhg likely in the setting of Obstructive Sleep Apnea given obesity and history of snoring vs may be secondary to cirrhosis but inferior vena cava and hepatic veins do not appear distended vs meth use although patient denied history, consider utox vs PE give D-Dimer although less likely given CTA Chest negative. Autoimmune condition can not be ruled and DOLORES should be consider as patient is younger. Given small to moderate effusion, patient may benefit thora but pleural effusion maybe too small Echo (07/25/2024): Right atrium is mildly dilated. Right ventricle is markedly dilated Right ventricle dimension is equal to left ventricle dimension with moderate RV systolic dysfunction.Left ventricle is normal in dimension there is evidence of flattening of the septum D-shaped septum with paradoxical motion due to increased RV pressure and dimension. Overall left-sided function is preserved ejection fraction 50 to 55%. Mild tricuspid regurgitation. RV systolic pressure is normal 35 mmHg but based on the appearance RV pressure appears to be higher than the left There is evidence of a small Circumferencial Pericardial Effusion. No evidence of cardiac tamponade. Inferior vena cava pulmonary and hepatic veins appear normal Enlarged Main Pulmonary Artery 4.5 TSH 0.94, A1c 6.1 % BNP 638 Lipid Panel (07/24/2024): Triglycerides 77, Cholesterol 121, LDL 76, HDL 30 07/25/2024: 1620/3550/-1930 NYHA Class: II ASCVD: 1.9%, no statins recommend Plan: -Increase Lasix form 20 mg IV to Lasix 40 mg IV -Consider consult with Pul-Crit -Consider HIV panel and DOLORES -consider Utox -K>4 and Mg >2 -SpO <90%, support PRN -Daily Weights, Strict Ins and Outs, Fluid Striction (1500ml), Sodium Restriction 2 grams per day -Cardiology Consult, appreciate recommendations. -Right heart failure, lasix for now, consider increasing to 40 IV if work of breathing does not improve #Cirrhosis, decompensated with MIld Ascites, likely secondary to alcohol use On admission CT abdomen noted for cirrhosis with mild ascites. Cirrhosis likely secondary to alcohol use disorder as patient typically drinks 8 beers of 12 ounce cans daily vs cirrhosis secondary to right heart failure. Diagnostics PT 13, INR 1.2, PTT 29.6, 07/24/2024 AST is 24, ALT 25, albumin 3.5 Child-Crespo Score 7 points, Child Class B, Abdominal surgery lindy-operative mortality 30% Plan -Spirnolactone 25 mg once daily if blood pressure permits,but may half dose if soft BP, as mild ascites noted. -Continue to monitor AST's and ALT's. -Consider hepatitis panel - Patient would benefit from GI consult as outpatient liver biopsy #Pneumonia, Cocci Patient positive for IgM Plan -Fluconazole started -If limited clinical improvement, patient may benefit from ID consult for amphotericin, but likely pulmonary changes secondary to pulmonary vascular congestion #Incidential 12 mm fat-containing umbilical hernia #18 mm posterior right lobe liver lesion, recommend elective MRI abdomen follow- up pre and post-contrast Health Maintenance: Disp: Pt is currently admitted to floors for further management of acute CHF exacerbation, cardiology consulted FEN: cardiac diet DVT: on subQ heparin q8HRs Code: Full Code - The patient's plan was discussed with attending Dr. Jonathan Butler MD PGY1 Internal Medicine Attending Provider Attestation/Addendum I have personally seen and examined the patient separately on the above date of service and discussed the plan of care with the resident. I reviewed the resident Dr. Annie Butler consultation progress note and agree with the resident findings and plan in the note above and have also edited the documentation to reflect my findings and plan. A 43-year-old male with a past medical history of morbid obesity, significant alcohol abuse drinking 8-12 beers per day, ex-smoker with at least [id number] smoking history, possible ALLI or pickwickian syndrome, not on any medications and does not follow-up with doctors regularly presented to the emergency department for worsening shortness of breath over the last month along with some leg swelling. Initial workup in the emergency department did show elevated blood pressure 165/127 mmHg and continues to be elevated, heart rate 107 bpm, saturation of only 90% on room air. CBC showed elevated hemoglobin at 16.9, normal platelets and WBC, CMP showed normal kidney function and normal electrolytes. BNP was elevated at 638.. Troponin was negative x 2. D-dimer elevated 987. CTA chest showed pulmonary hypertension but no evidence of PE and mild heart failure. Chest x-ray showed cardiomegaly with mild vascular congestion. EKG showed sinus tachycardia at 104 bpm with possible RVH and QTc was normal. CTA abdomen pelvis showed possible cirrhosis of the liver with 8 mm posterior right lower lobe lesion along with mild ascites and anasarca 12 mm umbilical hernia. Cardiology was consulted for abnormal echo. Assessments and plan: 1. Acute hypercapnic and hypoxic respiratory failure requiring mechanical ventilation with BiPAP 2. New onset CHF exacerbation secondary to HFpEF 1 diastolic dysfunction stage II and possible right heart failure 3. Moderate pulmonary hypertension 4. Cirrhosis of the liver with mild ascites and anasarca-new diagnosis 5. Fluid overload and anasarca 6. Moderate right pleural effusion 7. Right lower lobe lesion-18 mm 8. Morbid obesity 9. Significant alcohol abuse with more than 8-12 beers per day for many years 10. Ex-smoker with more than [id number] smoking history 11. Possible COPD-never diagnosed previously 12. Possible sleep apnea with possible pickwickian syndrome secondary to obesity-never tested 13. Uncontrolled hypertension-untreated 14. Prediabetes with A1c of 6.1 15. Polycythemia with hemoglobin of 16 mostly secondary to his smoking and obesity with chronic hypoxia Cardiology was consulted for abnormal echo withEcho (07/25/2024): Right atrium is mildly dilated. Right ventricle is markedly dilated Right ventricle dimension is equal to left ventricle dimension with moderate RV systolic dysfunction.Left ventricle is normal in dimension there is evidence of flattening of the septum D-shaped septum with paradoxical motion due to increased RV pressure and dimension. Overall left-sided function is preserved ejection fraction 50 to 55%. Mild tricuspid regurgitation. RV systolic pressure is normal 35 mmHg but based on the appearance RV pressure appears to be higher than the left There is evidence of a small Circumferencial Pericardial Effusion. No evidence of cardiac tamponade. Enlarged Main Pulmonary Artery Echo shows evidence of pulmonary hypertension with D-shaped septum in both systole and diastole including both pressure and volume overload. RVSP was only measured at 35 mmHg but patient at least has moderate PAH. His moderate PAH is mostly secondary to multifactorial etiology including his morbid obesity with possible sleep apnea and pickwickian syndrome along with possible COPD with more than 10 pack years of smoking history and diastolic dysfunction stage II. Possible group 2 and group 3 PAH. Patient is significantly volume overloaded as noted with mild to moderate congestion on the chest x-ray as well as a CT and peripheral edema. Recommend to continue aggressive diuresis with Lasix 40 mg IV once daily and uptitrate it based on the renal function. Also on purulent Bactrim given his anasarca, ascites at with cirrhosis. Strict input output Daily weights and 2 g sodium diet. Patient has acute hypercapnic and hypoxic respiratory failure as evidenced by the ABG on presentation with a PCO2 of around 68 mmHg. Patient does have underlying COPD given his history of smoking as well as a morbid obesity and will need further evaluation with the PFTs. Recommend to continue BiPAP and recommend also pulmonary consultation for the patient aggressive treatment of the COPD with short acting as well as long-acting inhalers. Further management as per primary team. Patient also has hypoxic compartment along with congestion as noted in the chest x-ray and recommend to continue with IV diuresis for now. Patient should also be tested for sleep apnea as outpatient and if ALLI present should be treated accordingly. He also has possible pickwickian syndrome. Patient does have significant history of alcohol abuse with 8-12 beers per day for many years-couple of decades. CT abdomen pelvis showed possible cirrhosis of liver along with anasarca and 18 mm right lower lobe lesion. MELD score is 7 and child class B. Workup as per primary and recommend GI consult for the patient. Started on p.o. spironolactone also. Patient has uncontrolled blood pressure since arrival and has no history of hypertension and does not take any meds. Patient is also fluid overloaded and continue with dialysis for now and if required patient to be started on amlodipine and then later can be started on ARB's. Patient also has significant hypoxia and is being tested for coccidiomycosis coccidiomycosis. Patient counseled at length regarding to completely quit his alcohol use and recommend to continue to quit smoking. Check U tox for other substance abuse. 07/26/2024-patient still continues to be short of breath as well as volume overloaded. Patient was also started on Lasix 20 mg IV once daily and recommend to increase to Lasix 40 mg IV once daily and also start spironolactone 25 mg once daily. Recommend to continue BiPAP given his hypercapnic respiratory failure along with possible underlying COPD exacerbation. Strict input output with daily weights and 2 g sodium diet. Renal failure continues to be stable with the diuresis. Recommend pulmonary consult for the patient with Dr. Silvestre as well as GI consult with Dr. Yao given his new diagnosis of cirrhosis as well as the 18 mm lesion in the right lobe of the liver. Unfortunately patient has been diagnosed of coccidiomycosis too and started on fluconazole for the primary team. Management of rest of the medical conditions as per primary team and other consultants. Thank you for the consult and allowing me to participate in the care of the patient. Cardiology will continue to follow. Marcus Castillo M.D. Interventional Cardiology
--- NOTE | 2024-07-26 14:16 | ESPR_ITS ---
Documentation for date of: 07/26/24 Subjective Subjective Interval history: No acute events overnight.?Patient seen and examined at bedside this AM.?Patient is alert, answering questions well and reports feeling well. Continues to diurese significantly, in fact output is around 6.7L in the last 24 hours. Patient is on 20 mg IV Lasix daily. On exam there is still 2+ pitting edema on the bilateral shins. Labs and vitals were reviewed.?No further complaints at this time. Will give patient a 4 hour break off BiPAP this evening. Patient will then wear BiPAP all night then will try removing in the morning. Review of systems otherwise negative except what is mentioned above. Exam Vital Signs Temp Pulse Resp BP Pulse Ox O2 Del Method O2 Flow Rate 97.4 F 89 23 H 143/99 H 96 Nasal Cannula 6 07/26/24 12:00 07/26/24 12:37 07/26/24 12:37 07/26/24 12:00 07/26/24 12:37 07/26/24 12:00 07/26/24 12:00 FiO2 40 07/26/24 12:37 Narrative Exam GENERAL: A&Ox3 , middle ages obese male, Awake on Bipap , Not in acute distress NEURO: no focal neurological deficits noted HEENT: Atraumatic, Normocephalic. mucous membranes moist. Eyes open, symmetrical, & clear HEART: Normal Heart Sounds LUNGS: Clear to auscultation with no wheezing or crackles. ABDOMEN: soft, non-distended, non-tender, bowel sounds heard, no guarding or rebound tenderness, 2+ dependent edema around the abdomen SKIN: No Rash or ecchymoses EXTREMITIES: 2+ pitting edema noted in LE extending to abdomen, no tenderness, able to move all 4 extremities, pedal pulses palpated Objective Labs 07/29/24 05:21 07/29/24 05:21 Labs: Laboratory Results - last 24 hr 07/26/24 04:30 WBC 10.1 RBC 5.37 Hgb 16.0 Hct 50.1 MCV 93 MCH 29.8 MCHC 31.9 RDW Std Deviation 55.6 H Plt Count 270 Neut % (Auto) 77 Lymph % (Auto) 12 [place] % (Auto) 10 Eos % (Auto) 1 Baso % (Auto) 0 Neut # (Auto) 7.8 H Lymph # (Auto) 1.2 [place] # (Auto) 1.0 H Eos # (Auto) 0.1 Baso # (Auto) 0.0 Immature Gran # (Auto) 0.03 H Absolute Nucleated RBC 0.00 Immature Gran % 0 Nucleated RBC % 0 Sodium 140 Potassium 3.9 Chloride 98 Carbon Dioxide 34.2 H Anion Gap 8 BUN 11 Creatinine 0.9 Estim Creat Clear Calc 128.5 eGFR > 60 BUN/Creatinine Ratio 12 Glucose 91 Calculated Osmolality 278 Calcium 8.6 Corrected Calcium 9.0 Phosphorus 3.2 Magnesium 2.2 Total Bilirubin 1.4 H AST 24 ALT 31 Alkaline Phosphatase 63 Total Protein 6.3 Albumin 3.5 Globulin 2.8 Albumin/Globulin Ratio 1.3 ABG Interpretation ABG results: 07/23/24 07/23/24 07/24/24 08:41 14:36 08:48 ABG pH 7.30 L 7.29 L 7.37 ABG pCO2 61 H 67 H 67 H ABG pO2 96 101 63 L D ABG HCO3 30 H 32 H 38 H ABG O2 Saturation 96 96 90 L ABG Base Excess 2 3 9 H 07/25/24 08:04 ABG pH 7.40 ABG pCO2 63 H ABG pO2 52 L* ABG HCO3 38 H ABG O2 Saturation 85 L ABG Base Excess 10 H Quality Measures Quality Measures none Assessment & Plan Assessment Current Active Medications: Generic Name Dose Route Start Last Admin Trade Name Freq PRN Reason Stop Dose Admin Acetaminophen 650 mg 07/24/24 11:41 Acetaminophen 325 Mg Tablet PO 08/22/24 11:57 Q6H PRN Fever >100.3 Albuterol/Ipratropium 3 ml 07/23/24 16:00 Albuterol/Ipratropium (Duoneb) Rt Unique 3 Ml Nebu INH 08/22/24 12:59 Q6HRRT PRN SHORTNESS OF BREATH OR WHEEZE Artificial Tears 0 drop 07/25/24 08:23 07/25/24 08:41 Artificial Tears 225 Drop/15 Ml Btl BOTH EYES 08/24/24 08:22 2 drops PRN PRN Administration TO KEEP EYES MOIST Fluconazole 400 mg 07/23/24 14:00 07/26/24 08:20 Fluconazole 100 Mg Tablet PO 07/30/24 13:59 400 mg QDAY LIANG Administration Furosemide 20 mg 07/27/24 09:00 Furosemide Inj 10 Mg/Ml Vial 2 Ml IVP 08/25/24 08:59 QDAY LIANG Heparin Sodium (Porcine) 5,000 unit 07/23/24 14:00 07/26/24 13:46 Heparin Sod Inj 5000 Unit/Ml Vial SC 08/06/24 13:59 5,000 unit Q8HR LIANG Administration Ondansetron HCl 4 mg 07/23/24 11:58 Ondansetron Inj 2 Mg/Ml Inj 2 Ml IVP 08/22/24 11:57 Q6H PRN NAUSEA OR VOMITING Protocol Plan Mr. Boudreaux is a 43 year old male with no known past medical history presented to the ED complaining of worsening shortness of breath. Pt is admitted for management of acute hypoxic hypercapnic respiratory failure secondary to CHF exacerbation requiring Bipap and IV diuretics. #Acute Hypoxic hypercapnic respiratory failure 2/ to #Acute exacerbation of CHF, HFpEF EF 50-55% #Right heart failure #ALLI #Anasarca Pt complains of progressively worsening exertional shortness of breath started June 15, denies orthpnea and PND. Pt also noted abdominal bloating BNP 638, troponin <0.020 Chest x-ray: Moderate enlargement cardiac contour, mild vascular congestion EKG: Sinus tachycardia with rate of [address] abdomen/pelvis: Cirrhosis, 8 mm posterior right lobe liver lesion, mild ascites, anasarca, 12 mm fat-containing umbilical hernia ABG on admission : pH 7.30, CO2 61, pO2 96, HCO3 30, O2 sat 96% Echo done on 07/24/24 Right heart failure most likely secondary to pulmonary HTN based on the echo findings, likely due to ALLI due to obesity Plan: -O2 support PRN -Bipap for acute hypercapnia -Repeat ABG showed hypercapnia -Daily weights, strict I&Os, fluid restriction to 1500cc daily -Lasix 20mg IV Qday -Pt may take 1 hour breaks from Bipap during meals -Consulted Cardiology, appreciate recommendations #Coccidioidomycosis -Cocci IgM is positive, pending UCD confirmatory test -Pt works in the [employer] -Started flucanazole 400mg Qday #Cirrhosis #Ascites, mild #Liver lesion, right lobe -CT abdomen/pelvis: Cirrhosis, 8 mm posterior right lobe liver lesion, mild ascites, anasarca, 8 mm posterior right lobe liver lesion -Pt endorses to drinking alcohol daily -AST and ALT with in normal limits -Pt will need outpatient follow up and referral to controller operations and hr manager -Pt is advised on complete abstinence from alcohol #Umbilical hernia -12mm fat-containing umbilical hernia -Pt denies abdominal pain, asymptomatic -Will need outpatient follow up Health Maintenance Disposition: telemetry, pt is requiring BiPap due to acute hypoxic hypercapnic respiratory failure DVT Prophylaxis: Heparin 5000 units SC Q8 hrs GI Prophylaxis: not indicated Diet: NPO for now since pt is on BiPAP, will advance diet once pt is off of Bipap Lines: Peripheral lines Code status: Full Patient plan of care was discussed with the attending physician, Dr. Barr. Kandy Valenzuela, PGY-2 Attending Provider Attestation/Addendum 43-year-old male with no previous medical history presented with shortness of breath and found to have acute hypoxic respiratory failure with generalized anasarca and pulmonary edema likely related to acute new onset CHF exacerbation. In the ER, patient is on BiPAP and plan to start the patient on aggressive IV diuretic therapy. In addition, patient also tested positive for coccidiomycosis IgM for which plan to start fluconazole pending confirmatory [facility] testing. As of now, patient continues to have significant anasarca with diffuse crackles requiring IV diuretic therapy. Continues to require close monitoring in telemetry as there is a risk for respiratory decompensation. I reviewed above note and agree with findings and plans. I have also personally examined the patient with medicine team and went over assessment and plan with medical team including design engineering intern and resident physician.
[2024-07-26] MEDS: ACETAMINOPHEN 325 MG TABLET 650 MG PO (19:07)
[2024-07-26] MEDS: MORPHINE SULF INJ 10 MG/ML VIAL IVP (23:24)
--- NOTE | 2024-07-26 23:42 | PC.NURSE ---
DR. HUTSON MADE AWARE OF BP OF 159/115. PT W/ C/O PAIN TO BILATERAL LOWER FEET. PAIN TO TOUCH. NEW ORDERS TO BE PLACED BY DR. HUTSON FOR PAIN MANAGEMENT.
[2024-07-27] VITALS (13 sets, daily range): BP systolic 112–177; BP diastolic 79–122; PULSE 91–112; RESP 18–25; TEMP 36.1–36.6; O2SAT 93–99; BMI 33.0
[2024-07-27] MEDS: KETOROLAC INJ 30 MG/ML VIAL IVP (04:37)
[2024-07-27] MEDS: HEPARIN SOD INJ 5000 UNIT/ML VIAL SC ×3 (05:49→21:48)
[2024-07-27 06:03] LABS: Basophils % (Auto) 0 % (0-2.5); Eosinophils % (Auto) 0 % (0-10); Hematocrit 49.2 % (41.0-53.0); Hemoglobin 15.9 g/dL (13.5-16.0); Immature Granulocytes % (Auto) 0 % (0-0); Immature Granulocytes Auto 0.05 Thou/mm3 (0.00-0.00); Lymphocytes % (Auto) 7 % (10-50); Mean Corpuscular HGB Conc 32.3 g/dl (31.0-37.0); Mean Corpuscular Hemoglobin 29.3 pg (25.0-35.0); Mean Corpuscular Volume 91 fL (80-100); Monocytes # (Auto) 1.5 Thou/mm3 (0.0-0.8); Monocytes % (Auto) 11 % (0-12); Neutrophils % (Auto) 81 % (37-80); Nucleated Red Blood Cell % 0 /100 WBC (0); Platelet Count 259 Thou/mm3 (140-440); RDW Standard Deviation 52.7 fL (35.1-43.9); Red Blood Count 5.42 Miln/mm3 (4.50-5.90); White Blood Count 13.6 Thou/mm3 (3.8-10.6)
[2024-07-27 06:35] LABS: Alanine Aminotransferase 25 U/L (10-49); Albumin, Serum 3.9 gm/dL (3.5-5.0); Albumin/Globulin Ratio 1.3 (1.2-2.2); Alkaline Phosphatase 68 U/L (46-116); Anion Gap 7 (7-16); Aspartate Amino Transferase 19 U/L (0-34); BUN/Creatinine Ratio 13 Ratio (12-20); Bilirubin,Total 1.9 mg/dL (0.3-1.2); Blood Urea Nitrogen 10 mg/dL (9-23); Calcium 8.9 mg/dL (8.3-10.6); Carbon Dioxide 30.8 mMol/L (20.0-31.0); Chloride 97 mMol/L (98-107); Creatinine (Component) 0.8 mg/dL (0.6-1.3); Estimated Creatinine Clearance 142.8 mL/min (>60); Glucose 126 mg/dL (74-106); Magnesium 2.1 mg/dL (1.6-2.6); Osmolality,Calculated 271 (275-295); Phosphorous 2.3 mg/dL (2.4-5.1); Potassium 3.7 mMol/L (3.4-5.1); Sodium 135 mMol/L (136-145); Total Protein 6.9 gm/dL (5.7-8.2); eGFR > 60 See Note
[2024-07-27] MEDS: FUROSEMIDE INJ 10 MG/ML VIAL 2 ML 20 MG IVP ×2 (08:28→21:48)
[2024-07-27] MEDS: FLUCONAZOLE 100 MG TABLET 400 MG PO (08:28)
[2024-07-27] MEDS: NAPH,KPH MBDB 1 PACKET (1.5 GM) PO (08:28)
[2024-07-27] MEDS: SPIRONOLACTONE 25 MG TABLET PO (08:29)
--- NOTE | 2024-07-27 09:29 | XR_ITS ---
Examination: Foot, left, 3 views Technique: AP, oblique, lateral views foot, 3 views Date and time of exam: July 27, 2024 0948 hrs. Indications: Left foot pain beginning one week ago no trauma Findings: Mild osteopenia. Mild narrowing first metatarsophalangeal joint. No fracture. Mild osteoarthritis tibiotalar intertarsal and tarsometatarsal joints No erosive arthritis Impression: Osteoarthritis as above
--- NOTE | 2024-07-27 09:57 | PD.RESPRO ---
Documentation for date of: 07/27/24 Subjective Subjective Interval history: Overnight team reported pt was complaining of severe left foot pain and toradol x1 was given. Pt is seen and examined at bedside this morning. Pt is currently saturating 95% on 6L O2 via nasal cannula. Pt's fluid balance is net negative 2220 and total urine output of 3.6L. Pt is using BiPAP at night and supplmental oxygen during the day. BP is elevated with SBP >170's. As per cardio recs will start the pt on spironolactone daily and will add coreg as well (will continue to closely monitor BP). Pt continues to complain of severe left foot pain and tenderness to slightest touch, range of motion is limited. therefore will order left foot xray. Exam Vital Signs Temp Pulse Resp BP Pulse Ox O2 Del Method O2 Flow Rate 96.9 F 102 H 18 177/122 H 99 BiPAP 5 07/27/24 08:00 07/27/24 08:29 07/27/24 08:00 07/27/24 08:29 07/27/24 08:00 07/27/24 08:00 07/27/24 08:00 FiO2 40 07/27/24 08:00 Narrative Exam GENERAL: A&Ox3 , middle ages obese male, Awake on Bipap , Not in acute distress NEURO: no focal neurological deficits noted HEENT: Atraumatic, Normocephalic. mucous membranes moist. Eyes open, symmetrical, & clear HEART: Normal Heart Sounds LUNGS: Clear to auscultation with no wheezing or crackles. ABDOMEN: soft, non-distended, non-tender, bowel sounds heard, no guarding or rebound tenderness, 1+ dependent edema around the abdomen SKIN: No Rash or ecchymoses EXTREMITIES: 1+ pitting edema noted in LE extending to abdomen, tenderness in left foot with limited range of motion, pedal pulses palpated Objective Labs 07/29/24 05:21 07/29/24 05:21 Labs: Laboratory Results - last 24 hr 07/27/24 04:30 WBC 13.6 H RBC 5.42 Hgb 15.9 Hct 49.2 MCV 91 MCH 29.3 MCHC 32.3 RDW Std Deviation 52.7 H Plt Count 259 Neut % (Auto) 81 H Lymph % (Auto) 7 L [place] % (Auto) 11 Eos % (Auto) 0 Baso % (Auto) 0 Neut # (Auto) 11.0 H Lymph # (Auto) 1.0 [place] # (Auto) 1.5 H Eos # (Auto) 0.0 Baso # (Auto) 0.0 Immature Gran # (Auto) 0.05 H Absolute Nucleated RBC 0.00 Immature Gran % 0 Nucleated RBC % 0 Sodium 135 L Potassium 3.7 Chloride 97 L Carbon Dioxide 30.8 Anion Gap 7 BUN 10 Creatinine 0.8 Estim Creat Clear Calc 142.8 eGFR > 60 BUN/Creatinine Ratio 13 Glucose 126 H Calculated Osmolality 271 L Calcium 8.9 Corrected Calcium 9.0 Phosphorus 2.3 L Magnesium 2.1 Total Bilirubin 1.9 H D AST 19 ALT 25 Alkaline Phosphatase 68 Total Protein 6.9 Albumin 3.9 Globulin 3.0 Albumin/Globulin Ratio 1.3 ABG Interpretation ABG results: 07/23/24 07/23/24 07/24/24 08:41 14:36 08:48 ABG pH 7.30 L 7.29 L 7.37 ABG pCO2 61 H 67 H 67 H ABG pO2 96 101 63 L D ABG HCO3 30 H 32 H 38 H ABG O2 Saturation 96 96 90 L ABG Base Excess 2 3 9 H 07/25/24 08:04 ABG pH 7.40 ABG pCO2 63 H ABG pO2 52 L* ABG HCO3 38 H ABG O2 Saturation 85 L ABG Base Excess 10 H Quality Measures Quality Measures none Assessment & Plan Assessment Current Active Medications: Generic Name Dose Route Start Last Admin Trade Name Freq PRN Reason Stop Dose Admin Acetaminophen 650 mg 07/24/24 11:41 07/26/24 19:07 Acetaminophen 325 Mg Tablet PO 08/22/24 11:57 650 mg Q6H PRN Administration Fever >100.3 Albuterol/Ipratropium 3 ml 07/23/24 16:00 Albuterol/Ipratropium (Duoneb) Rt Unique 3 Ml Nebu INH 08/22/24 12:59 Q6HRRT PRN SHORTNESS OF BREATH OR WHEEZE Artificial Tears 0 drop 07/25/24 08:23 07/25/24 08:41 Artificial Tears 225 Drop/15 Ml Btl BOTH EYES 08/24/24 08:22 2 drops PRN PRN Administration TO KEEP EYES MOIST Carvedilol 6.25 mg 07/27/24 09:30 Carvedilol 3.125 Mg Tablet PO 08/26/24 09:29 BIDWM LIANG Fluconazole 400 mg 07/23/24 14:00 07/27/24 08:28 Fluconazole 100 Mg Tablet PO 07/30/24 13:59 400 mg QDAY LIANG Administration Furosemide 20 mg 07/27/24 09:00 07/27/24 08:28 Furosemide Inj 10 Mg/Ml Vial 2 Ml IVP 08/25/24 08:59 20 mg QDAY LIANG Administration Heparin Sodium (Porcine) 5,000 unit 07/23/24 14:00 07/27/24 05:49 Heparin Sod Inj 5000 Unit/Ml Vial SC 08/06/24 13:59 5,000 unit Q8HR LIANG Administration Ondansetron HCl 4 mg 07/23/24 11:58 Ondansetron Inj 2 Mg/Ml Inj 2 Ml IVP 08/22/24 11:57 Q6H PRN NAUSEA OR VOMITING Protocol Spironolactone 25 mg 07/27/24 09:00 07/27/24 08:29 Spironolactone 25 Mg Tablet PO 08/26/24 08:59 25 mg QDAY LIANG Administration Plan Mr. Boudreaux is a 43 year old male with no known past medical history presented to the ED complaining of worsening shortness of breath. Pt is admitted for management of acute hypoxic hypercapnic respiratory failure secondary to CHF exacerbation requiring Bipap and IV diuretics. #Acute Hypoxic hypercapnic respiratory failure 2/2 to #Acute exacerbation of CHF, HFpEF EF 50-55% #Right heart failure #ALLI #Anasarca Pt complains of progressively worsening exertional shortness of breath started June 15, denies orthpnea and PND. Pt also noted abdominal bloating BNP 638, troponin <0.020 Chest x-ray: Moderate enlargement cardiac contour, mild vascular congestion EKG: Sinus tachycardia with rate of [address] abdomen/pelvis: Cirrhosis, 8 mm posterior right lobe liver lesion, mild ascites, anasarca, 12 mm fat-containing umbilical hernia ABG on admission : pH 7.30, CO2 61, pO2 96, HCO3 30, O2 sat 96% Echo done on 07/24/24 Right heart failure most likely secondary to pulmonary HTN based on the echo findings, likely due to ALLI due to obesity Plan: -O2 support PRN -Bipap for acute hypercapnia -Pt will need CPAP upon discharge -Repeat ABG showed hypercapnia -Daily weights, strict I&Os, fluid restriction to 1500cc daily -Lasix 20mg IV Qday, spironolactone 25mg daily and coreg 6.25mg BID -Consulted Cardiology, appreciate recommendations #Coccidioidomycosis -Cocci IgM is positive, pending UCD confirmatory test -Pt works in the [employer] -Started flucanazole 400mg Qday #Left foot pain -Pt is complaining of new onset of severe left foot pain and tenderness. Limited range of motion on physical exam -Xray of left foot ordered -Pain meds PRN #Cirrhosis #Ascites, mild #Liver lesion, right lobe -CT abdomen/pelvis: Cirrhosis, 8 mm posterior right lobe liver lesion, mild ascites, anasarca, 8 mm posterior right lobe liver lesion -Pt endorses to drinking alcohol daily -AST and ALT with in normal limits -Child Crespo score: 7, class B Indication for transplant evaluation, Abdominal surgery lindy-operative mortality: 30% -Pt will need outpatient follow up and referral to shift production associate -Pt is advised on complete abstinence from alcohol #Umbilical hernia -12mm fat-containing umbilical hernia -Pt denies abdominal pain, asymptomatic -Will need outpatient follow up Health Maintenance Disposition: telemetry, pt is requiring BiPap due to acute hypoxic hypercapnic respiratory failure DVT Prophylaxis: Heparin 5000 units SC Q8 hrs GI Prophylaxis: not indicated Diet: cardiac diet Lines: Peripheral lines Code status: Full Assessment and plan discussed with my attending physician Dr. Cortney Roth ([id number])- Internal medicine resident Attending Provider Attestation/Addendum 43-year-old male with no previous medical history presented with shortness of breath and found to have acute hypoxic respiratory failure with generalized anasarca and pulmonary edema likely related to acute new onset CHF exacerbation. In the ER, patient is on BiPAP and plan to start the patient on aggressive IV diuretic therapy. In addition, patient also tested positive for coccidiomycosis IgM for which plan to start fluconazole pending confirmatory [place] testing. As of now, patient continues to have significant anasarca with diffuse crackles requiring IV diuretic therapy. Continues to require close monitoring in telemetry as there is a risk for respiratory decompensation. I reviewed above note and agree with findings and plans. I have also personally examined the patient with medicine team and went over assessment and plan with medical team including internet researcher and resident physician.
[2024-07-27] MEDS: carVEDILOL 3.125 MG TABLET 6.25 MG PO (10:29)
--- NOTE | 2024-07-27 13:28 | PD.RESPRO ---
Documentation for date of: 07/27/24 Subjective Subjective Interval history: cc: SOB Patient has a limited past medical history, who is denying hypertension and diabtes. Patient presented to the emergency room with chief complain of shortness of breath and worsened by exertion for over 1 month. Patient stated past smoking history and quit about 15 years ago, starting in his early 20s. Patient drinks about 8, 12 oz-beers daily. Patient was admitted for new onset on CHF exacerbation. 07/27/2024: Patient on 6 liters oxygen saturaing 98% after using Bipap overnight. Patinet stated improved dyspnea this morning with improved airway entry. Patient stated that after this experience he decrease alcohol, until he is able to stop consuming alcohol. Patient denied chest, palpitations, and chillls or fevers overnight. Patient is open to being tested for hepatitis and HIV to rule any other underlying cause of cirrhosis. Lasix 40-->reduced to 20 mg IV. Stop Coreg. Consider Amlodipine if BP management needed. Ins and Outs: 1380/3600/-2220 Weight 106.912 Exam Vital Signs Temp Pulse Resp BP Pulse Ox O2 Del Method O2 Flow Rate 97.2 F 106 H 22 H 130/104 H 98 Nasal Cannula 5 07/27/24 12:00 07/27/24 12:00 07/27/24 12:00 07/27/24 12:00 07/27/24 12:00 07/27/24 12:00 07/27/24 12:00 FiO2 40 07/27/24 08:00 Narrative Exam General Appearance: Alert & Oriented X3, well-nourished male who is lying in bed in no acute distress HEENT: Skull symmetrical and atraumatic. Conjunctivae pink and moist. Scleral icterus noted. Pupils equal, round, reactive to light and accommodation (PERRL). External ear without lesion or discharge. Straight, nares patient, mucosa pink, no discharge. No thyroid nodule appreciated. No cervical lymphadenopathy. Cardio: Normal Rate and Rhythm with S1 and S2 heart sounds. No murmurs or extra heart sounds auscultated. No bruits on carotid auscultation. No peripheral edema or cyanosis. Lungs: Symmetric with good expansion. Chest and back non-tender. Breath sounds vesicular with mild crackles Abdomen: Non-tender, Non-distended, Normal Reactive Bowel Sounds Neuro: Alert, cooperative, oriented to person, place, and time. Speech clear. CN grossly intact. Upper motor strength 5/5 and Lower motor strength 5/5. Sensation intact. Objective Labs 07/27/24 04:30 07/27/24 04:30 Labs: Laboratory Results - last 24 hr 07/27/24 04:30 WBC 13.6 H RBC 5.42 Hgb 15.9 Hct 49.2 MCV 91 MCH 29.3 MCHC 32.3 RDW Std Deviation 52.7 H Plt Count 259 Neut % (Auto) 81 H Lymph % (Auto) 7 L [place] % (Auto) 11 Eos % (Auto) 0 Baso % (Auto) 0 Neut # (Auto) 11.0 H Lymph # (Auto) 1.0 [place] # (Auto) 1.5 H Eos # (Auto) 0.0 Baso # (Auto) 0.0 Immature Gran # (Auto) 0.05 H Absolute Nucleated RBC 0.00 Immature Gran % 0 Nucleated RBC % 0 Sodium 135 L Potassium 3.7 Chloride 97 L Carbon Dioxide 30.8 Anion Gap 7 BUN 10 Creatinine 0.8 Estim Creat Clear Calc 142.8 eGFR > 60 BUN/Creatinine Ratio 13 Glucose 126 H Calculated Osmolality 271 L Calcium 8.9 Corrected Calcium 9.0 Phosphorus 2.3 L Magnesium 2.1 Total Bilirubin 1.9 H D AST 19 ALT 25 Alkaline Phosphatase 68 Total Protein 6.9 Albumin 3.9 Globulin 3.0 Albumin/Globulin Ratio 1.3 ABG Interpretation ABG results: 07/23/24 07/23/24 07/24/24 08:41 14:36 08:48 ABG pH 7.30 L 7.29 L 7.37 ABG pCO2 61 H 67 H 67 H ABG pO2 96 101 63 L D ABG HCO3 30 H 32 H 38 H ABG O2 Saturation 96 96 90 L ABG Base Excess 2 3 9 H 07/25/24 08:04 ABG pH 7.40 ABG pCO2 63 H ABG pO2 52 L* ABG HCO3 38 H ABG O2 Saturation 85 L ABG Base Excess 10 H Quality Measures Quality Measures none Assessment & Plan Assessment Current Active Medications: Generic Name Dose Route Start Last Admin Trade Name Freq PRN Reason Stop Dose Admin Acetaminophen 650 mg 07/24/24 11:41 07/26/24 19:07 Acetaminophen 325 Mg Tablet PO 08/22/24 11:57 650 mg Q6H PRN Administration Fever >100.3 Albuterol/Ipratropium 3 ml 07/23/24 16:00 Albuterol/Ipratropium (Duoneb) Rt Unique 3 Ml Nebu INH 08/22/24 12:59 Q6HRRT PRN SHORTNESS OF BREATH OR WHEEZE Artificial Tears 0 drop 07/25/24 08:23 07/25/24 08:41 Artificial Tears 225 Drop/15 Ml Btl BOTH EYES 08/24/24 08:22 2 drops PRN PRN Administration TO KEEP EYES MOIST Fluconazole 400 mg 07/23/24 14:00 07/27/24 08:28 Fluconazole 100 Mg Tablet PO 07/30/24 13:59 400 mg QDAY LIANG Administration Furosemide 20 mg 07/27/24 09:00 07/27/24 08:28 Furosemide Inj 10 Mg/Ml Vial 2 Ml IVP 08/25/24 08:59 20 mg QDAY LIANG Administration Heparin Sodium (Porcine) 5,000 unit 07/23/24 14:00 07/27/24 05:49 Heparin Sod Inj 5000 Unit/Ml Vial SC 08/06/24 13:59 5,000 unit Q8HR LIANG Administration Ondansetron HCl 4 mg 07/23/24 11:58 Ondansetron Inj 2 Mg/Ml Inj 2 Ml IVP 08/22/24 11:57 Q6H PRN NAUSEA OR VOMITING Protocol Spironolactone 25 mg 07/27/24 09:00 07/27/24 08:29 Spironolactone 25 Mg Tablet PO 08/26/24 08:59 25 mg QDAY LIANG Administration Plan Patient is a 43 year old male with a limited past medical history. Patient was admitted with new onset of CHF, found to have HFpEF 50 to 55%, Pulmonary Artery Enlargment, and Moderate RV Systolic Dysfunction. Cardiology consulted for pulmonary artery largment and RV Systolic Dysfunction. #Acute Hypercapnic Respiratory Failure #Congestive Heart Failure, new onset #CHF HFpEF 50% to 55% #Pulmonary Artery Enlargment #Moderate RV systolic Dysfunction #Moderate Right Pleural Effusion #ALLI/OHS Isolated right heart systolic dysfunction w enlarged main pulmonary artery and normal RVSP 31 mmhg likely in the setting of Obstructive Sleep Apnea given obesity and history of snoring vs may be secondary to cirrhosis but inferior vena cava and hepatic veins do not appear distended vs meth use although patient denied history, consider utox vs PE give D-Dimer although less likely given CTA Chest negative. Autoimmune condition can not be ruled and DOLORES should be consider as patient is younger. Given small to moderate effusion, patient may benefit thora but pleural effusion maybe too small Echo (07/25/2024): Right atrium is mildly dilated. Right ventricle is markedly dilated Right ventricle dimension is equal to left ventricle dimension with moderate RV systolic dysfunction.Left ventricle is normal in dimension there is evidence of flattening of the septum D-shaped septum with paradoxical motion due to increased RV pressure and dimension. Overall left-sided function is preserved ejection fraction 50 to 55%. Mild tricuspid regurgitation. RV systolic pressure is normal 35 mmHg but based on the appearance RV pressure appears to be higher than the left There is evidence of a small Circumferencial Pericardial Effusion. No evidence of cardiac tamponade. Inferior vena cava pulmonary and hepatic veins appear normal Enlarged Main Pulmonary Artery 4.5 TSH 0.94, A1c 6.1 % BNP 638 Lipid Panel (07/24/2024): Triglycerides 77, Cholesterol 121, LDL 76, HDL 30 Ins and Outs: 1380/3600/-2220 Weight 106.912 NYHA Class: II ASCVD: 1.9%, no statins recommend Plan: -Lasix 20 mg IV once daily -continue with diureiss -DOLORES w/ reflex obtained -repeat BNP prior to discharge -K>4 and Mg >2 -SpO <90%, support PRN -Daily Weights, Strict Ins and Outs, Fluid Striction (1500ml), Sodium Restriction 2 grams per day -Cardiology Consult, appreciate recommendations. -Right heart failure, lasix for now, consider increasing to 40 IV if work of breathing does not improve #Hypertension Patient noted to be hypertensive prior this morning Plan -Amlodipine 10 mg PO -Stop Coreg #Cirrhosis, decompensated with MIld Ascites, likely secondary to alcohol use On admission CT abdomen noted for cirrhosis with mild ascites. Cirrhosis likely secondary to alcohol use disorder as patient typically drinks 8 beers of 12 ounce cans daily vs cirrhosis secondary to right heart failure. Diagnostics PT 13, INR 1.2, PTT 29.6, 07/24/2024 AST is 24, ALT 25, albumin 3.5 Child-Crespo Score 7 points, Child Class B, Abdominal surgery lindy-operative mortality 30% Plan -Spirnolactone 25 mg once daily -Continue to monitor AST's and ALT's. -Pending Hepatitis panel and HIV - Patient would benefit from GI consult as outpatient liver biopsy #Pneumonia, Cocci Patient positive for IgM Plan -Fluconazole started -If limited clinical improvement, patient may benefit from ID consult for amphotericin, but likely pulmonary changes secondary to pulmonary vascular congestion #Incidential 12 mm fat-containing umbilical hernia #18 mm posterior right lobe liver lesion, recommend elective MRI abdomen follow-up pre and post-contrast Health Maintenance: Disp: Pt is currently admitted to floors for further management of acute CHF exacerbation, cardiology consulted FEN: cardiac diet DVT: on subQ heparin q8HRs Code: Full Code - The patient's plan was discussed with attending Dr. Jonathan Butler MD PGY1 Internal Medicin Attending Provider Attestation/Addendum I have personally seen and examined the patient separately on the above date of service and discussed the plan of care with the resident. I reviewed the resident Dr. Annie Butler consultation progress note and agree with the resident findings and plan in the note above and have also edited the documentation to reflect my findings and plan. A 43-year-old male with a past medical history of morbid obesity, significant alcohol abuse drinking 8-12 beers per day, ex-smoker with at least [id number] smoking history, possible ALLI or pickwickian syndrome, not on any medications and does not follow-up with doctors regularly presented to the emergency department for worsening shortness of breath over the last month along with some leg swelling. Initial workup in the emergency department did show elevated blood pressure 165/127 mmHg and continues to be elevated, heart rate 107 bpm, saturation of only 90% on room air. CBC showed elevated hemoglobin at 16.9, normal platelets and WBC, CMP showed normal kidney function and normal electrolytes. BNP was elevated at 638.. Troponin was negative x 2. D-dimer elevated 987. CTA chest showed pulmonary hypertension but no evidence of PE and mild heart failure. Chest x-ray showed cardiomegaly with mild vascular congestion. EKG showed sinus tachycardia at 104 bpm with possible RVH and QTc was normal. CTA abdomen pelvis showed possible cirrhosis of the liver with 8 mm posterior right lower lobe lesion along with mild ascites and anasarca 12 mm umbilical hernia. Cardiology was consulted for abnormal echo. Assessments and plan: 1. Acute hypercapnic and hypoxic respiratory failure requiring mechanical ventilation with BiPAP 2. New onset CHF exacerbation secondary to HFpEF 1 diastolic dysfunction stage II and possible right heart failure 3. Moderate pulmonary hypertension 4. Cirrhosis of the liver with mild ascites and anasarca-new diagnosis 5. Fluid overload and anasarca 6. Moderate right pleural effusion 7. Right lower lobe lesion-18 mm 8. Morbid obesity 9. Significant alcohol abuse with more than 8-12 beers per day for many years 10. Ex-smoker with more than [id number] smoking history 11. Possible COPD-never diagnosed previously 12. Possible sleep apnea with possible pickwickian syndrome secondary to obesity-never tested 13. Uncontrolled hypertension-untreated 14. Prediabetes with A1c of 6.1 15. Polycythemia with hemoglobin of 16 mostly secondary to his smoking and obesity with chronic hypoxia Cardiology was consulted for abnormal echo withEcho (07/25/2024): Right atrium is mildly dilated. Right ventricle is markedly dilated Right ventricle dimension is equal to left ventricle dimension with moderate RV systolic dysfunction.Left ventricle is normal in dimension there is evidence of flattening of the septum D-shaped septum with paradoxical motion due to increased RV pressure and dimension. Overall left-sided function is preserved ejection fraction 50 to 55%. Mild tricuspid regurgitation. RV systolic pressure is normal 35 mmHg but based on the appearance RV pressure appears to be higher than the left There is evidence of a small Circumferencial Pericardial Effusion. No evidence of cardiac tamponade. Enlarged Main Pulmonary Artery Echo shows evidence of pulmonary hypertension with D-shaped septum in both systole and diastole including both pressure and volume overload. RVSP was only measured at 35 mmHg but patient at least has moderate PAH. His moderate PAH is mostly secondary to multifactorial etiology including his morbid obesity with possible sleep apnea and pickwickian syndrome along with possible COPD with more than 10 pack years of smoking history and diastolic dysfunction stage II. Possible group 2 and group 3 PAH. Patient is significantly volume overloaded as noted with mild to moderate congestion on the chest x-ray as well as a CT and peripheral edema. Recommend to continue aggressive diuresis with Lasix 40 mg IV once daily and uptitrate it based on the renal function. Also on purulent Bactrim given his anasarca, ascites at with cirrhosis. Strict input output Daily weights and 2 g sodium diet. Patient has acute hypercapnic and hypoxic respiratory failure as evidenced by the ABG on presentation with a PCO2 of around 68 mmHg. Patient does have underlying COPD given his history of smoking as well as a morbid obesity and will need further evaluation with the PFTs. Recommend to continue BiPAP and recommend also pulmonary consultation for the patient aggressive treatment of the COPD with short acting as well as long-acting inhalers. Further management as per primary team. Patient also has hypoxic compartment along with congestion as noted in the chest x-ray and recommend to continue with IV diuresis for now. Patient should also be tested for sleep apnea as outpatient and if ALLI present should be treated accordingly. He also has possible pickwickian syndrome. Patient does have significant history of alcohol abuse with 8-12 beers per day for many years-couple of decades. CT abdomen pelvis showed possible cirrhosis of liver along with anasarca and 18 mm right lower lobe lesion. MELD score is 7 and child class B. Workup as per primary and recommend GI consult for the patient. Started on p.o. spironolactone also. Patient has uncontrolled blood pressure since arrival and has no history of hypertension and does not take any meds. Patient is also fluid overloaded and continue with dialysis for now and if required patient to be started on amlodipine and then later can be started on ARB's. Patient also has significant hypoxia and is being tested for coccidiomycosis coccidiomycosis. Patient counseled at length regarding to completely quit his alcohol use and recommend to continue to quit smoking. Check U tox for other substance abuse. 07/26/2024-patient still continues to be short of breath as well as volume overloaded. Patient was also started on Lasix 20 mg IV once daily and recommend to increase to Lasix 40 mg IV once daily and also start spironolactone 25 mg once daily. Recommend to continue BiPAP given his hypercapnic respiratory failure along with possible underlying COPD exacerbation. Strict input output with daily weights and 2 g sodium diet. Renal failure continues to be stable with the diuresis. Recommend pulmonary consult for the patient with Dr. Silvestre as well as GI consult with Dr. Yao given his new diagnosis of cirrhosis as well as the 18 mm lesion in the right lobe of the liver. Unfortunately patient has been diagnosed of coccidiomycosis too and started on fluconazole for the primary team. 07/27/2024-patient is diuresed well with Lasix 40 mg IV once daily but was decreased to Lasix 20 mg IV once daily today. Renal function continues to be stable. Recommend to continue aggressive diuresis with Lasix 40 mg IV once daily. Spironolactone added to the regimen. Continue BiPAP at night now patient is on 62 oxygen via nasal cannula. His shortness of breath has improved in the leg swelling also improved. Patient continues to be hypotensive and did not able to start the patient on Coreg and recommend to stop it completely. Start the patient on amlodipine 5 mg once daily for blood pressure management and once diuresis is completed patient can be started on losartan. Strict input output Daily weights and 2 g sodium diet. Keep potassium greater than 4 magnesium greater than 2.0 to. Management of rest of the medical conditions as per primary team and other consultants. Thank you for the consult and allowing me to participate in the care of the patient. Cardiology will continue to follow. Marcus Castillo M.D. Interventional Cardiology
[2024-07-27 17:14] LABS: HIV (1&2) Antibody Rapid Non-Reactive
--- NOTE | 2024-07-27 18:36 | ECHO_ITS ---
Transthoracic Echo Report Ht (in): 70 Wt (lb): 235 Exam Location: Echo Lab Status: Inpatient Double Needle Stitcher: Sissy Marquez Indications: Procedure Performed: BP: 112 / 87 HR: 99 Technical Quality: Technically difficult study MEASUREMENTS (Male / Female) Normal Values 2D ECHO LV Diastolic Diameter PLAX 4.2 cm 4.2 - 5.9 / 3.9 - 5.3 cm LV Systolic Diameter PLAX 2.9 cm IVS Diastolic Thickness 1.2 cm 0.6 - 1.0 / 0.6 - 0.9 cm LVPW Diastolic Thickness 1.3 cm 0.6 - 1.0 / 0.6 - 0.9 cm LV Relative Wall Thickness 0.6 LVOT Diameter 2.1 cm Aortic Root Diameter 3.5 cm LA Systolic Diameter LX 3.2 cm 3.0 - 4.0 / 2.7 - 3.8 cm LA Volume Index 18.1 cm?/m? 16 - 28 cm?/m? M-MODE Aortic Root Diameter MM 2.4 cm LA Systolic Diameter MM 4.0 cm LA Ao Ratio MM 1.7 AV Cusp Separation MM 1.6 cm DOPPLER AV Peak Velocity 137.0 cm/s AV Peak Gradient 7.5 mmHg AV Mean Gradient 4.0 mmHg AV Velocity Time Integral 25.5 cm LVOT Peak Velocity 129.0 cm/s LVOT Peak Gradient 6.7 mmHg LVOT Velocity Time Integral 22.7 cm LVOT Cardiac Index 3340.6 cm?/min?m? AV Area Cont Eq vti 3.1 cm? AV Area Cont Eq pk 3.3 cm? MV Area PHT 4.4 cm? Mitral E Point Velocity 47.1 cm/s Mitral A Point Velocity 60.1 cm/s Mitral E to A Ratio 0.8 LV E' Lateral Velocity 5.5 cm/s Mitral E to LV E' Lateral Ratio 8.5 LV E' Septal Velocity 5.4 cm/s Mitral E to LV E' Septal Ratio 8.7 TR Peak Velocity 352.0 cm/s TR Peak Gradient 49.6 mmHg PV Peak Velocity 132.0 cm/s PV Peak Gradient 7.0 mmHg FINDINGS Left Ventricle Normal left ventricular size, wall thickness, systolic function with no obvious regional wall motion abnormalities. There is grade I diastolic dysfunction of the left ventricle (impaired relaxation pattern). The ejection fraction is visually estimated at 50-55 %. Right Ventricle The right ventricular size is mildy increased with normal systolic function. The estimated right ventricular systolic pressure, 61 mmHg. RAP 5. Left Atrium The left atrium is normal by two-dimensional, color flow and Doppler imaging with no structural abnormalities, no thrombus formation present. Right Atrium The right atrial cavity size is mildly increased. Atrial Septum The interatrial septum appears normal with no evidence of a shunt. Aorta The aorta is normal by two-dimensional, color flow and Doppler interrogation. Mitral Valve The mitral valve is normal by two-dimensional, color flow and Doppler interrogation. Mild mitral regurgitation. Aortic Valve The aortic valve is trileaflet and normal by two-dimensional, color flow and Doppler interrogation. There is no significant aortic valve regurgitation. Tricuspid Valve The tricuspid valve is normal by two-dimensional, color flow and Doppler interrogation. There is mild to moderate tricuspid valve regurgitation. Pulmonic Valve The pulmonic valve is not well visualized. There is no significant pulmonic valve regurgitation. Vessels The pulmonary artery appears normal. The inferior vena cava pulmonary and hepatic veins appear normal. Pericardium There is a tiny, hemodynamically insignificant pericardial effusion. CONCLUSIONS Indication: Re-evaluate RV function and PAH Normal LV size and function. There is grade I diastolic dysfunction. Estimated EF at 55 to 60%. Mildly dilated RV but RV systolic function normal. Estimated RVSP is moderately elevated at 55 to 60 mmHg. Paradoxical septal motion noted. D-shaped septum in both systole and diastole indicating both RV pressure and volume overload. Mildly dilated RA. Mildly dilated IVC. Mild to moderate TR. Mild MR. Small pericardial effusion noted without any evidence of any cardiac tamponade Marcus Castillo (Electronically Signed) Final Date: 28 July 2024 02:32
[2024-07-27 19:02] LABS: Hepatitis A Antibody IgM Non Reactive (Non React); Hepatitis B Core Antibody IgM Non Reactive (Non React); Hepatitis B Surface Antigen Non Reactive (Non React); Hepatitis C Antibody Non Reactive (Non React)
[2024-07-28] VITALS (13 sets, daily range): BP systolic 117–147; BP diastolic 85–105; PULSE 88–104; RESP 20–28; TEMP 36.1–36.7; O2SAT 91–96; BMI 32.2
[2024-07-28] MEDS: HEPARIN SOD INJ 5000 UNIT/ML VIAL SC ×3 (05:54→22:17)
[2024-07-28 07:10] LABS: Basophils % (Auto) 0 % (0-2.5); Eosinophils # (Auto) 0.3 Thou/mm3 (0.0-0.5); Eosinophils % (Auto) 2 % (0-10); Hematocrit 50.1 % (41.0-53.0); Hemoglobin 15.9 g/dL (13.5-16.0); Immature Granulocytes % (Auto) 0 % (0-0); Immature Granulocytes Auto 0.04 Thou/mm3 (0.00-0.00); Lymphocytes # (Auto) 1.1 Thou/mm3 (1.0-4.8); Lymphocytes % (Auto) 8 % (10-50); Mean Corpuscular HGB Conc 31.7 g/dl (31.0-37.0); Mean Corpuscular Hemoglobin 29.6 pg (25.0-35.0); Mean Corpuscular Volume 93 fL (80-100); Monocytes # (Auto) 1.1 Thou/mm3 (0.0-0.8); Monocytes % (Auto) 9 % (0-12); Neutrophils # (Auto) 10.2 Thou/mm3 (1.8-7.7); Neutrophils % (Auto) 81 % (37-80); Nucleated Red Blood Cell % 0 /100 WBC (0); Platelet Count 235 Thou/mm3 (140-440); RDW Standard Deviation 55.4 fL (35.1-43.9); Red Blood Count 5.37 Miln/mm3 (4.50-5.90); White Blood Count 12.7 Thou/mm3 (3.8-10.6)
[2024-07-28 07:22] LABS: Alanine Aminotransferase 22 U/L (10-49); Albumin, Serum 3.6 gm/dL (3.5-5.0); Albumin/Globulin Ratio 1.3 (1.2-2.2); Alkaline Phosphatase 67 U/L (46-116); Anion Gap 8 (7-16); Aspartate Amino Transferase 20 U/L (0-34); BUN/Creatinine Ratio 15 Ratio (12-20); Blood Urea Nitrogen 12 mg/dL (9-23); Calcium 8.8 mg/dL (8.3-10.6); Calcium (Corrected) 9.1 mg/dL (8.5-10.1); Carbon Dioxide 33.8 mMol/L (20.0-31.0); Chloride 99 mMol/L (98-107); Creatinine (Component) 0.8 mg/dL (0.6-1.3); Estimated Creatinine Clearance 141.2 mL/min (>60); Globulin 2.8 gm/dL (2.3-3.5); Glucose 99 mg/dL (74-106); Osmolality,Calculated 280 (275-295); Phosphorous 3.2 mg/dL (2.4-5.1); Potassium 4.2 mMol/L (3.4-5.1); Sodium 141 mMol/L (136-145); Total Protein 6.4 gm/dL (5.7-8.2); eGFR > 60 See Note
[2024-07-28] MEDS: FLUCONAZOLE 100 MG TABLET 400 MG PO (08:31)
[2024-07-28] MEDS: amLODIPine BESYLATE 5 MG TABLET 10 MG PO (08:31)
[2024-07-28] MEDS: SPIRONOLACTONE 25 MG TABLET PO (08:31)
[2024-07-28] MEDS: FUROSEMIDE INJ 10 MG/ML VIAL 2 ML 20 MG IVP ×2 (08:32→09:30)
--- NOTE | 2024-07-28 09:31 | PC.SS ---
Follow up note: On IV diuresis and bipap at night. Pt will return home upon dc.
--- NOTE | 2024-07-28 09:47 | PD.RESPRO ---
Documentation for date of: 07/28/24 Subjective Subjective Interval history: cc: SOB Patient has a limited past medical history, who is denying hypertension and diabtes. Patient presented to the emergency room with chief complain of shortness of breath and worsened by exertion for over 1 month. Patient stated past smoking history and quit about 15 years ago, starting in his early 20s. Patient drinks about 8, 12 oz-beers daily. Patient was admitted for new onset on CHF exacerbation. 07/28/2024: Patient examined at bedside. Patient stated overnight use of Bipap. Currently on NC, continues to be on 6 L, saturating well. Patient encouraged to ampulate at least to restroom with help of UI APPLICATION DEVELOPER. No cardiac complains. Denied chest pain or palpitations. Improved shortness of breath. Lasix 40 mg IV recommended, continue to monitor kidney function. In and Out takes [id number] Exam Vital Signs Temp Pulse Resp BP Pulse Ox O2 Del Method O2 Flow Rate 98.1 F 88 24 H 147/105 H 93 L Nasal Cannula 6 07/28/24 08:00 07/28/24 08:32 07/28/24 08:00 07/28/24 08:32 07/28/24 08:00 07/28/24 08:00 07/28/24 08:00 FiO2 40 07/28/24 01:30 Narrative Exam General Appearance: Alert & Oriented X3, well-nourished male who is lying in bed in no acute distress HEENT: Skull symmetrical and atraumatic. Conjunctivae pink and moist. Scleral icterus noted. Pupils equal, round, reactive to light and accommodation (PERRL). External ear without lesion or discharge. Straight, nares patient, mucosa pink, no discharge. No thyroid nodule appreciated. No cervical lymphadenopathy. Cardio: Normal Rate and Rhythm with S1 and S2 heart sounds. No murmurs or extra heart sounds auscultated. No bruits on carotid auscultation. No peripheral edema or cyanosis. Lungs: Symmetric with good expansion. Chest and back non-tender. Breath sounds vesicular with mild crackles Abdomen: Non-tender, Non-distended, Normal Reactive Bowel Sounds Neuro: Alert, cooperative, oriented to person, place, and time. Speech clear. CN grossly intact. Upper motor strength 5/5 and Lower motor strength 5/5. Sensation intact. Objective Labs 07/31/24 05:31 07/31/24 05:31 Labs: Laboratory Results - last 24 hr 07/27/24 07/28/24 04:30 06:05 WBC 12.7 H RBC 5.37 Hgb 15.9 Hct 50.1 MCV 93 MCH 29.6 MCHC 31.7 RDW Std Deviation 55.4 H Plt Count 235 Neut % (Auto) 81 H Lymph % (Auto) 8 L [place] % (Auto) 9 Eos % (Auto) 2 Baso % (Auto) 0 Neut # (Auto) 10.2 H Lymph # (Auto) 1.1 [place] # (Auto) 1.1 H Eos # (Auto) 0.3 Baso # (Auto) 0.0 Immature Gran # (Auto) 0.04 H Absolute Nucleated RBC 0.00 Immature Gran % 0 Nucleated RBC % 0 Sodium 141 Potassium 4.2 D Chloride 99 Carbon Dioxide 33.8 H Anion Gap 8 BUN 12 Creatinine 0.8 Estim Creat Clear Calc 141.2 eGFR > 60 BUN/Creatinine Ratio 15 Glucose 99 Calculated Osmolality 280 Calcium 8.8 Corrected Calcium 9.1 Phosphorus 3.2 Magnesium 2.0 Total Bilirubin 1.0 D AST 20 ALT 22 Alkaline Phosphatase 67 Total Protein 6.4 Albumin 3.6 Globulin 2.8 Albumin/Globulin Ratio 1.3 Hepatitis A IgM Ab Non Reactive Hep Bs Antigen Non Reactive Hep B Core IgM Ab Non Reactive Hepatitis C Antibody Non Reactive HIV 1&2 Antibody Rapid Non-Reactive ABG Interpretation ABG results: 07/23/24 07/23/24 07/24/24 08:41 14:36 08:48 ABG pH 7.30 L 7.29 L 7.37 ABG pCO2 61 H 67 H 67 H ABG pO2 96 101 63 L D ABG HCO3 30 H 32 H 38 H ABG O2 Saturation 96 96 90 L ABG Base Excess 2 3 9 H 07/25/24 08:04 ABG pH 7.40 ABG pCO2 63 H ABG pO2 52 L* ABG HCO3 38 H ABG O2 Saturation 85 L ABG Base Excess 10 H Quality Measures Quality Measures none Assessment & Plan Assessment Current Active Medications: Generic Name Dose Route Start Last Admin Trade Name Freq PRN Reason Stop Dose Admin Acetaminophen 650 mg 07/27/24 16:22 Acetaminophen 325 Mg Tablet PO 08/22/24 11:57 Q6H PRN Fever >100.3 Albuterol/Ipratropium 3 ml 07/23/24 16:00 Albuterol/Ipratropium (Duoneb) Rt Unique 3 Ml Nebu INH 08/22/24 12:59 Q6HRRT PRN SHORTNESS OF BREATH OR WHEEZE Amlodipine Besylate 10 mg 07/28/24 09:00 07/28/24 08:31 Amlodipine Besylate 5 Mg Tablet PO 08/27/24 08:59 10 mg QDAY LIANG Administration Artificial Tears 0 drop 07/25/24 08:23 07/25/24 08:41 Artificial Tears 225 Drop/15 Ml Btl BOTH EYES 08/24/24 08:22 2 drops PRN PRN Administration TO KEEP EYES MOIST Fluconazole 400 mg 07/23/24 14:00 07/28/24 08:31 Fluconazole 100 Mg Tablet PO 07/30/24 13:59 400 mg QDAY LIANG Administration Furosemide 40 mg 07/28/24 09:00 Furosemide Inj 10 Mg/Ml 4ml Vial IVP 08/27/24 08:59 QDAY LIANG Heparin Sodium (Porcine) 5,000 unit 07/23/24 14:00 07/28/24 05:54 Heparin Sod Inj 5000 Unit/Ml Vial SC 08/06/24 13:59 5,000 unit Q8HR LIANG Administration Morphine Sulfate 2 mg 07/27/24 16:20 Morphine Sulf Inj 10 Mg/Ml Vial IVP 08/01/24 16:19 Q6HR PRN Pain 7-10 Ondansetron HCl 4 mg 07/23/24 11:58 Ondansetron Inj 2 Mg/Ml Inj 2 Ml IVP 08/22/24 11:57 Q6H PRN NAUSEA OR VOMITING Protocol Spironolactone 25 mg 07/27/24 09:00 07/28/24 08:31 Spironolactone 25 Mg Tablet PO 08/26/24 08:59 25 mg QDAY LIANG Administration Plan Patient is a 43 year old male with a limited past medical history. Patient was admitted with new onset of CHF, found to have HFpEF 50 to 55%, Pulmonary Artery Enlargment, and Moderate RV Systolic Dysfunction. Cardiology consulted for pulmonary artery largment and RV Systolic Dysfunction. #Acute Hypercapnic Respiratory Failure #Congestive Heart Failure, new onset #CHF HFpEF 50% to 55% #Grade I Diastolic Dysfunction #Moderate PAH, 55 to 60 mmhg #Pulmonary Artery Enlargment #Moderate RV systolic Dysfunction #Moderate Right Pleural Effusion #ALLI/OHS Isolated right heart systolic dysfunction w enlarged main pulmonary artery and normal RVSP 31 mmhg likely in the setting of Obstructive Sleep Apnea given obesity and history of snoring vs may be secondary to cirrhosis but inferior vena cava and hepatic veins do not appear distended vs meth use although patient denied history, consider utox vs PE give D-Dimer although less likely given CTA Chest negative. Autoimmune condition can not be ruled and DOLORES should be consider as patient is younger. Given small to moderate effusion, patient may benefit thora but pleural effusion maybe too small Echo (07/27/2024): Normal LV size and function. There is grade I diastolic dysfunction. Estimated EF at 55 to 60%. Mildly dilated RV but RV systolic function normal. Estimated RVSP is moderately elevated at 55 to 60 mmHg.Paradoxical septal motion noted. D-shaped septum in both systole and diastole indicating both RV pressure and volume overload. Mildly dilated RA. Mildly dilated IVC. Mild to moderate TR. Mild MR.Small pericardial effusion noted without any evidence of any cardiac tamponade TSH 0.94, A1c 6.1 % BNP 638 Lipid Panel (07/24/2024): Triglycerides 77, Cholesterol 121, LDL 76, HDL 30 NYHA Class: II ASCVD: 1.9%, no statins recommend Plan: -Lasix 40 mg IV once daily -continue with diureiss -DOLORES w/ reflex obtained -repeat BNP prior to discharge -K>4 and Mg >2 -SpO <90%, support PRN -Daily Weights, Strict Ins and Outs, Fluid Striction (1500ml), Sodium Restriction 2 grams per day #Hypertension Patient noted to be hypertensive prior this morning Plan -Amlodipine 10 mg PO -Amlodipine and then later can be started on ARB's #Cirrhosis, decompensated with MIld Ascites, likely secondary to alcohol use On admission CT abdomen noted for cirrhosis with mild ascites. Cirrhosis likely secondary to alcohol use disorder as patient typically drinks 8 beers of 12 ounce cans daily vs cirrhosis secondary to right heart failure. Diagnostics PT 13, INR 1.2, PTT 29.6, 07/24/2024 AST is 24, ALT 25, albumin 3.5 Child-Crespo Score 7 points, Child Class B, Abdominal surgery lindy-operative mortality 30% Plan -Spirnolactone 25 mg once daily & Lasix -Continue to monitor AST's and ALT's. - Negative Hepatitis panel and HIV - Patient would benefit from GI consult as outpatient liver biopsy #Pneumonia, Cocci Patient positive for IgM Plan -Fluconazole started -If limited clinical improvement, patient may benefit from ID consult for amphotericin, but likely pulmonary changes secondary to pulmonary vascular congestion #Polycythemia, likely secondary to ALLI/OHS Patient has a past medical history of sleeping and increase BMI, likely secondary to ALLI, less likely secondary to Vincent mutation #Incidential 12 mm fat-containing umbilical hernia #18 mm posterior right lobe liver lesion, recommend elective MRI abdomen follow-up pre and post-contrast #History of smoking 10 pack year smoking history #Pre-diabetes Health Maintenance: Disp: Pt is currently admitted to floors for further management of acute CHF exacerbation, cardiology consulted FEN: cardiac diet DVT: on subQ heparin q8HRs Code: Full Code - The patient's plan was discussed with attending Dr. Jonathan Butler MD PGY1 Internal Medicin Attending Provider Attestation/Addendum I have personally seen and examined the patient separately on the above date of service and discussed the plan of care with the resident. I reviewed the resident Dr. Annie Butler consultation progress note and agree with the resident findings and plan in the note above and have also edited the documentation to reflect my findings and plan. Marcus Castillo M.D. Interventional Cardiology
--- NOTE | 2024-07-28 14:56 | ESPR_ITS ---
Documentation for date of: 07/28/24 Subjective Subjective Interval history: No acute overnight events reported. Pt is seen and examined at bedside this morning. Pt is currently saturating 95%on 3L O2 with moisture. Pt continues to use BiPAP at night. Pt endorses to significant improvement in shortness of breath. Pt is net negative 2235 and total urine output is 3.5L. BP this morning is slightly elevated. As per cardiology recommendation will increase lasix to 40mg and will add amlodipine 10mg. labs are reviewed. Hepatitis panel and HIV is negative. pt has not other complaints. Exam Vital Signs Temp Pulse Resp BP Pulse Ox O2 Del Method O2 Flow Rate 97.5 F 97 22 H 136/102 H 92 L Nasal Cannula 4 07/28/24 12:00 07/28/24 12:00 07/28/24 12:00 07/28/24 12:00 07/28/24 12:00 07/28/24 12:00 07/28/24 12:00 FiO2 40 07/28/24 01:30 Narrative Exam GENERAL: A&Ox3 , middle ages obese male, Awake on Bipap , Not in acute distress NEURO: no focal neurological deficits noted HEENT: Atraumatic, Normocephalic. mucous membranes moist. Eyes open, symmetrical, & clear HEART: Normal Heart Sounds LUNGS: Clear to auscultation with no wheezing or crackles. ABDOMEN: soft, non-distended, non-tender, bowel sounds heard, no guarding or rebound tenderness, 1+ dependent edema around the abdomen SKIN: No Rash or ecchymoses EXTREMITIES: 1+ pitting edema noted in LE extending to abdomen, tenderness in left foot with limited range of motion, pedal pulses palpated Objective Labs 07/29/24 05:21 07/29/24 05:21 Labs: Laboratory Results - last 24 hr 07/27/24 07/28/24 04:30 06:05 WBC 12.7 H RBC 5.37 Hgb 15.9 Hct 50.1 MCV 93 MCH 29.6 MCHC 31.7 RDW Std Deviation 55.4 H Plt Count 235 Neut % (Auto) 81 H Lymph % (Auto) 8 L [place] % (Auto) 9 Eos % (Auto) 2 Baso % (Auto) 0 Neut # (Auto) 10.2 H Lymph # (Auto) 1.1 [place] # (Auto) 1.1 H Eos # (Auto) 0.3 Baso # (Auto) 0.0 Immature Gran # (Auto) 0.04 H Absolute Nucleated RBC 0.00 Immature Gran % 0 Nucleated RBC % 0 Sodium 141 Potassium 4.2 D Chloride 99 Carbon Dioxide 33.8 H Anion Gap 8 BUN 12 Creatinine 0.8 Estim Creat Clear Calc 141.2 eGFR > 60 BUN/Creatinine Ratio 15 Glucose 99 Calculated Osmolality 280 Calcium 8.8 Corrected Calcium 9.1 Phosphorus 3.2 Magnesium 2.0 Total Bilirubin 1.0 D AST 20 ALT 22 Alkaline Phosphatase 67 Total Protein 6.4 Albumin 3.6 Globulin 2.8 Albumin/Globulin Ratio 1.3 Hepatitis A IgM Ab Non Reactive Hep Bs Antigen Non Reactive Hep B Core IgM Ab Non Reactive Hepatitis C Antibody Non Reactive HIV 1&2 Antibody Rapid Non-Reactive ABG Interpretation ABG results: 07/23/24 07/23/24 07/24/24 08:41 14:36 08:48 ABG pH 7.30 L 7.29 L 7.37 ABG pCO2 61 H 67 H 67 H ABG pO2 96 101 63 L D ABG HCO3 30 H 32 H 38 H ABG O2 Saturation 96 96 90 L ABG Base Excess 2 3 9 H 07/25/24 08:04 ABG pH 7.40 ABG pCO2 63 H ABG pO2 52 L* ABG HCO3 38 H ABG O2 Saturation 85 L ABG Base Excess 10 H Quality Measures Quality Measures none Assessment & Plan Assessment Current Active Medications: Generic Name Dose Route Start Last Admin Trade Name Freq PRN Reason Stop Dose Admin Acetaminophen 650 mg 07/27/24 16:22 Acetaminophen 325 Mg Tablet PO 08/22/24 11:57 Q6H PRN Fever >100.3 Albuterol/Ipratropium 3 ml 07/23/24 16:00 Albuterol/Ipratropium (Duoneb) Rt Unique 3 Ml Nebu INH 08/22/24 12:59 Q6HRRT PRN SHORTNESS OF BREATH OR WHEEZE Amlodipine Besylate 10 mg 07/28/24 09:00 07/28/24 08:31 Amlodipine Besylate 5 Mg Tablet PO 08/27/24 08:59 10 mg QDAY LIANG Administration Artificial Tears 0 drop 07/25/24 08:23 07/25/24 08:41 Artificial Tears 225 Drop/15 Ml Btl BOTH EYES 08/24/24 08:22 2 drops PRN PRN Administration TO KEEP EYES MOIST Fluconazole 400 mg 07/23/24 14:00 07/28/24 08:31 Fluconazole 100 Mg Tablet PO 07/30/24 13:59 400 mg QDAY LIANG Administration Furosemide 40 mg 07/28/24 09:00 07/28/24 09:00 Furosemide Inj 10 Mg/Ml 4ml Vial IVP 08/27/24 08:59 Not Given QDAY LIANG Heparin Sodium (Porcine) 5,000 unit 07/23/24 14:00 07/28/24 05:54 Heparin Sod Inj 5000 Unit/Ml Vial SC 08/06/24 13:59 5,000 unit Q8HR LIANG Administration Morphine Sulfate 2 mg 07/27/24 16:20 Morphine Sulf Inj 10 Mg/Ml Vial IVP 08/01/24 16:19 Q6HR PRN Pain 7-10 Ondansetron HCl 4 mg 07/23/24 11:58 Ondansetron Inj 2 Mg/Ml Inj 2 Ml IVP 08/22/24 11:57 Q6H PRN NAUSEA OR VOMITING Protocol Spironolactone 25 mg 07/27/24 09:00 07/28/24 08:31 Spironolactone 25 Mg Tablet PO 08/26/24 08:59 25 mg QDAY LIANG Administration Plan Mr. Boudreaux is a 43 year old male with no known past medical history presented to the ED complaining of worsening shortness of breath. Pt is admitted for management of acute hypoxic hypercapnic respiratory failure secondary to CHF exacerbation requiring Bipap and IV diuretics. #Acute Hypoxic hypercapnic respiratory failure 2/2 to #Acute exacerbation of CHF, HFpEF EF 55-60% #Right heart failure #Moderate Pulmonary HTN #ALLI #Anasarca Pt complains of progressively worsening exertional shortness of breath started June 15, denies orthpnea and PND. Pt also noted abdominal bloating BNP 638, troponin <0.020 Chest x-ray: Moderate enlargement cardiac contour, mild vascular congestion EKG: Sinus tachycardia with rate of [address] abdomen/pelvis: Cirrhosis, 8 mm posterior right lobe liver lesion, mild ascites, anasarca, 12 mm fat-containing umbilical hernia ABG on admission : pH 7.30, CO2 61, pO2 96, HCO3 30, O2 sat 96% Echo done on 07/24/24 Right heart failure most likely secondary to pulmonary HTN based on the echo findings, likely due to ALLI due to obesity Plan: -O2 support PRN -Bipap for acute hypercapnia -Pt will need CPAP upon discharge -Repeat ABG showed hypercapnia -Daily weights, strict I&Os, fluid restriction to 1500cc daily -Lasix 40mg IV Qday, spironolactone 25mg daily and Amlodipine 10mg daily -Consulted Cardiology, appreciate recommendations #Coccidioidomycosis -Cocci IgM is positive, pending UCD confirmatory test -Pt works in the [employer] -Started flucanazole 400mg Qday #Left foot pain -Pt is complaining of new onset of severe left foot pain and tenderness. Limited range of motion on physical exam -Xray of left foot ordered -Pain meds PRN #Cirrhosis #Ascites, mild #Liver lesion, right lobe #Alcohol use disorder -CT abdomen/pelvis: Cirrhosis, 8 mm posterior right lobe liver lesion, mild ascites, anasarca, 8 mm posterior right lobe liver lesion -Pt endorses to drinking alcohol daily -AST and ALT with in normal limits -Child Crespo score: 7, class B Indication for transplant evaluation, Abdominal surgery lindy-operative mortality: 30% -Pt will need outpatient follow up and referral to staff development coordinator rn -Pt is advised on complete abstinence from alcohol #Umbilical hernia -12mm fat-containing umbilical hernia -Pt denies abdominal pain, asymptomatic -Will need outpatient follow up Health Maintenance Disposition: telemetry, pt is requiring BiPap due to acute hypoxic hypercapnic respiratory failure DVT Prophylaxis: Heparin 5000 units SC Q8 hrs GI Prophylaxis: not indicated Diet: cardiac diet Lines: Peripheral lines Code status: Full Assessment and plan discussed with my attending physician Dr. Cortney Roth (PGY-1)- Internal medicine resident Attending Provider Attestation/Addendum 43-year-old male with no previous medical history presented with shortness of breath and found to have acute hypoxic respiratory failure with generalized anasarca and pulmonary edema likely related to acute new onset CHF exacerbation. In the ER, patient is on BiPAP and plan to start the patient on aggressive IV diuretic therapy. In addition, patient also tested positive for coccidiomycosis IgM for which plan to start fluconazole pending confirmatory [facility] testing. As of now, patient continues to have significant anasarca with diffuse crackles requiring IV diuretic therapy. Continues to require close monitoring in telemetry as there is a risk for respiratory decompensation. Overnight, Patient continues to be on Lasix 40 mg IV daily with net negative about 2 L.as of now, plan to continue IV diuretic therapy anticipate discharge in the next 24 to 48 hours as patient continues to have generalized anasarca with pulmonary edema requiring IV diuretic therapy. I reviewed above note and agree with findings and plans. I have also personally examined the patient with medicine team and went over assessment and plan with medical team including undergraduate intern and resident physician.
[2024-07-28] MEDS: ACETAMINOPHEN 325 MG TABLET 650 MG PO ×2 (15:54→23:39)
[2024-07-29] VITALS (12 sets, daily range): BP systolic 123–142; BP diastolic 82–98; PULSE 92–102; RESP 13–28; TEMP 36.2–36.8; O2SAT 95–99; BMI 31.0
[2024-07-29] MEDS: HEPARIN SOD INJ 5000 UNIT/ML VIAL SC ×3 (05:33→22:02)
[2024-07-29 06:10] LABS: Basophils % (Auto) 0 % (0-2.5); Eosinophils # (Auto) 0.4 Thou/mm3 (0.0-0.5); Eosinophils % (Auto) 4 % (0-10); Hematocrit 50.1 % (41.0-53.0); Hemoglobin 16.1 g/dL (13.5-16.0); Immature Granulocytes % (Auto) 0 % (0-0); Immature Granulocytes Auto 0.04 Thou/mm3 (0.00-0.00); Lymphocytes % (Auto) 10 % (10-50); Mean Corpuscular HGB Conc 32.1 g/dl (31.0-37.0); Mean Corpuscular Hemoglobin 29.7 pg (25.0-35.0); Mean Corpuscular Volume 92 fL (80-100); Monocytes % (Auto) 10 % (0-12); Neutrophils # (Auto) 7.8 Thou/mm3 (1.8-7.7); Neutrophils % (Auto) 76 % (37-80); Nucleated Red Blood Cell % 0 /100 WBC (0); Platelet Count 271 Thou/mm3 (140-440); RDW Standard Deviation 54.8 fL (35.1-43.9); Red Blood Count 5.43 Miln/mm3 (4.50-5.90); White Blood Count 10.2 Thou/mm3 (3.8-10.6)
[2024-07-29 06:33] LABS: Alanine Aminotransferase 27 U/L (10-49); Albumin, Serum 3.7 gm/dL (3.5-5.0); Albumin/Globulin Ratio 1.2 (1.2-2.2); Alkaline Phosphatase 74 U/L (46-116); Anion Gap 8 (7-16); Aspartate Amino Transferase 24 U/L (0-34); BUN/Creatinine Ratio 20 Ratio (12-20); Blood Urea Nitrogen 14 mg/dL (9-23); Calcium (Corrected) 9.2 mg/dL (8.5-10.1); Carbon Dioxide 33.7 mMol/L (20.0-31.0); Chloride 97 mMol/L (98-107); Creatinine (Component) 0.7 mg/dL (0.6-1.3); Estimated Creatinine Clearance 158.3 mL/min (>60); Globulin 3.1 gm/dL (2.3-3.5); Glucose 101 mg/dL (74-106); Osmolality,Calculated 278 (275-295); Potassium 3.8 mMol/L (3.4-5.1); Sodium 139 mMol/L (136-145); Total Protein 6.8 gm/dL (5.7-8.2); eGFR > 60 See Note
[2024-07-29] MEDS: FUROSEMIDE INJ 10 MG/ML 4ML VIAL 40 MG IVP (09:46)
[2024-07-29] MEDS: SPIRONOLACTONE 25 MG TABLET PO (09:46)
[2024-07-29] MEDS: FLUCONAZOLE 100 MG TABLET 400 MG PO (09:47)
[2024-07-29] MEDS: amLODIPine BESYLATE 5 MG TABLET 10 MG PO (09:47)
--- NOTE | 2024-07-29 10:20 | PC.SS ---
SS has sent DME order for Trilogy using [facility].
--- NOTE | 2024-07-29 11:20 | PC.SS ---
Addendum entered by Scarlet Mcdermott 07/29/24 13:50: SS has sent DME order for home O2 to [facility] [place]. Addendum entered by Scarlet Mcdermott 07/29/24 11:28: SS met with pt and provided him with verbal options for [facility]. Patient's choice is [facility] [place] due to being in [place]. Pt is aware [facility] also accepted and pt declined. Emil is considering and was informed on [facility] they do not accept [facility] for primary health insurance. [facility] - [id number] [place] [address] DME - CPAP/BiPAP Booked elsewhere Considering 07/29/2024 10:35 07/29/2024 10:19 Other ?(5) [facility] [place] [address] DME - CPAP/BiPAP Booked elsewhere 07/29/2024 10:19 ?(1) [facility] [id number] [facility] [address] [place] [address] DME - CPAP/BiPAP Booked elsewhere 07/29/2024 10:19 ?(1) [facility] [id number] [place] [id number] DME - CPAP/BiPAP Booked Yes 07/29/2024 10:20 07/29/2024 10:19 We can accept this patient. Thank you for your referral ?(2) [facility] [id number] [facility] [address] [place] [address] DME - CPAP/BiPAP Booked elsewhere 07/29/2024 10:19 ?(1) [facility] - [id number] [place] [address] DME - CPAP/BiPAP Booked elsewhere [phone] Original Note: SS spoke to bedside nurseRomy to explained pt is requiring O2 testing for home O2. SS provided nurseRomy with the What Qualifies For Medicare O2 Portability form to test pt for home O2. Bedside nurse is aware Trilogy Machine is also being ordered and pt will d/c today.
--- NOTE | 2024-07-29 13:23 | PC.NURSE ---
PT O2 SATURATION AT 94% WHILE SITTING BEDSIDE ON 4L OF O2 SUPPORT VIA NC. PT O2 SATURATION AT 86% WHILE SITTING BEDSIDE WITH OUT O2 SUPPORT.
--- NOTE | 2024-07-29 13:56 | PCS.ST ---
Trilogy Machine Patient needs mechanical ventilator due to Chronic Respiratory Failure due to Severe COPD.? Patient needs to keep tidal volume and prevent CO2 retention.? Ventilator is required to improve pulmonary status.? Without this respiratory support in the home it could lead to serious harm or .? Tried and failed CPAP therapy.
--- NOTE | 2024-07-29 15:50 | PC.SS ---
[facility] Patient needs mechanical ventilator due to Chronic Respiratory Failure due to CHF Exacerbation and Chroic Respiratory Failure.? Patient needs to keep tidal volume and prevent CO2 retention.? Ventilator is required to improve pulmonary status.? Without this respiratory support in the home it could lead to serious harm or .? Tried and failed CPAP therapy.
--- NOTE | 2024-07-29 16:16 | PC.SS ---
Patient needs mechanical ventilator due to Chronic Respiratory Failure due to CHF Exacerbation and Chroic Respiratory Failure.? Patient needs to keep tidal volume and prevent CO2 retention.? Ventilator is required to improve pulmonary status.? Without this respiratory support in the home it could lead to serious harm or .? Tried and failed PAP therapy.
--- NOTE | 2024-07-29 16:37 | ESPR_ITS ---
Documentation for date of: 07/29/24 Subjective Subjective Interval history: No acute overnight events reported. Patient seen and examined at bedside this morning. Patient is net -2670 and total urine output is 4050. Patient is currently saturating above 93% on 3 L of oxygen. Patient continues to use BiPAP overnight. Patient denies shortness of breath, palpitation or chest pain. Patient continues to endorse significant improvement in his breathing. Patient is cleared from cardio to be discharge awaiting trilogy which patient will need to be using regularly at night and home oxygen. Will discharge patient Lasix 40 daily. Vitals are stable labs are reviewed. Pt's UCD titers for cocci is negative, therefore will discontinue flucanazole. Patient has no other complaints Exam Vital Signs Temp Pulse Resp BP Pulse Ox O2 Del Method O2 Flow Rate 98.3 F 92 24 H 124/82 95 Nasal Cannula 3 07/29/24 16:00 07/29/24 16:00 07/29/24 16:00 07/29/24 16:00 07/29/24 16:00 07/29/24 16:00 07/29/24 16:00 FiO2 40 07/29/24 16:00 Narrative Exam GENERAL: A&Ox3 , middle ages obese male, Awake on Bipap , Not in acute distress NEURO: no focal neurological deficits noted HEENT: Atraumatic, Normocephalic. mucous membranes moist. Eyes open, symmetrical, & clear HEART: Normal Heart Sounds LUNGS: Clear to auscultation with no wheezing or crackles. ABDOMEN: soft, non-distended, non-tender, bowel sounds heard, no guarding or rebound tenderness, 1+ dependent edema around the abdomen SKIN: No Rash or ecchymoses EXTREMITIES: 1+ pitting edema noted in LE extending to abdomen, tenderness in left foot, pedal pulses palpated Objective Labs 07/29/24 05:21 07/29/24 05:21 Labs: Laboratory Results - last 24 hr 07/29/24 05:21 WBC 10.2 RBC 5.43 Hgb 16.1 H Hct 50.1 MCV 92 MCH 29.7 MCHC 32.1 RDW Std Deviation 54.8 H Plt Count 271 D Neut % (Auto) 76 Lymph % (Auto) 10 [place] % (Auto) 10 Eos % (Auto) 4 Baso % (Auto) 0 Neut # (Auto) 7.8 H Lymph # (Auto) 1.0 [place] # (Auto) 1.0 H Eos # (Auto) 0.4 Baso # (Auto) 0.0 Immature Gran # (Auto) 0.04 H Absolute Nucleated RBC 0.00 Immature Gran % 0 Nucleated RBC % 0 Sodium 139 Potassium 3.8 Chloride 97 L Carbon Dioxide 33.7 H Anion Gap 8 BUN 14 Creatinine 0.7 Estim Creat Clear Calc 158.3 eGFR > 60 BUN/Creatinine Ratio 20 Glucose 101 Calculated Osmolality 278 Calcium 9.0 Corrected Calcium 9.2 Phosphorus 4.0 Magnesium 2.0 Total Bilirubin 1.0 AST 24 ALT 27 Alkaline Phosphatase 74 Total Protein 6.8 Albumin 3.7 Globulin 3.1 Albumin/Globulin Ratio 1.2 ABG Interpretation ABG results: 07/23/24 07/23/24 07/24/24 08:41 14:36 08:48 ABG pH 7.30 L 7.29 L 7.37 ABG pCO2 61 H 67 H 67 H ABG pO2 96 101 63 L D ABG HCO3 30 H 32 H 38 H ABG O2 Saturation 96 96 90 L ABG Base Excess 2 3 9 H 07/25/24 08:04 ABG pH 7.40 ABG pCO2 63 H ABG pO2 52 L* ABG HCO3 38 H ABG O2 Saturation 85 L ABG Base Excess 10 H Quality Measures Quality Measures none Assessment & Plan Assessment Current Active Medications: Generic Name Dose Route Start Last Admin Trade Name Freq PRN Reason Stop Dose Admin Acetaminophen 650 mg 07/27/24 16:22 07/28/24 23:39 Acetaminophen 325 Mg Tablet PO 08/22/24 11:57 650 mg Q6H PRN Administration Fever >100.3 Albuterol/Ipratropium 3 ml 07/23/24 16:00 Albuterol/Ipratropium (Duoneb) Rt Unique 3 Ml Nebu INH 08/22/24 12:59 Q6HRRT PRN SHORTNESS OF BREATH OR WHEEZE Amlodipine Besylate 10 mg 07/28/24 09:00 07/29/24 09:47 Amlodipine Besylate 5 Mg Tablet PO 08/27/24 08:59 10 mg QDAY LIANG Administration Artificial Tears 0 drop 07/25/24 08:23 07/25/24 08:41 Artificial Tears 225 Drop/15 Ml Btl BOTH EYES 08/24/24 08:22 2 drops PRN PRN Administration TO KEEP EYES MOIST Furosemide 40 mg 07/28/24 09:00 07/29/24 09:46 Furosemide Inj 10 Mg/Ml 4ml Vial IVP 08/27/24 08:59 40 mg QDAY LIANG Administration Heparin Sodium (Porcine) 5,000 unit 07/23/24 14:00 07/29/24 13:22 Heparin Sod Inj 5000 Unit/Ml Vial SC 08/06/24 13:59 5,000 unit Q8HR LIANG Administration Morphine Sulfate 2 mg 07/27/24 16:20 Morphine Sulf Inj 10 Mg/Ml Vial IVP 08/01/24 16:19 Q6HR PRN Pain 7-10 Ondansetron HCl 4 mg 07/23/24 11:58 Ondansetron Inj 2 Mg/Ml Inj 2 Ml IVP 08/22/24 11:57 Q6H PRN NAUSEA OR VOMITING Protocol Spironolactone 25 mg 07/27/24 09:00 07/29/24 09:46 Spironolactone 25 Mg Tablet PO 08/26/24 08:59 25 mg QDAY LIANG Administration Plan Mr. Boudreaux is a 43 year old male with no known past medical history presented to the ED complaining of worsening shortness of breath. Pt is admitted for management of acute hypoxic hypercapnic respiratory failure secondary to CHF exacerbation requiring Bipap and IV diuretics. #Acute Hypoxic hypercapnic respiratory failure 2/2 to #Acute exacerbation of CHF, HFpEF EF 55-60% #Right heart failure #Pulmonary HTN, Moderate #ALLI #Anasarca Pt complains of progressively worsening exertional shortness of breath started June 15, denies orthpnea and PND. Pt also noted abdominal bloating BNP 638, troponin <0.020 Chest x-ray: Moderate enlargement cardiac contour, mild vascular congestion EKG: Sinus tachycardia with rate of [address] abdomen/pelvis: Cirrhosis, 8 mm posterior right lobe liver lesion, mild ascites, anasarca, 12 mm fat-containing umbilical hernia ABG on admission : pH 7.30, CO2 61, pO2 96, HCO3 30, O2 sat 96% Echo done on 07/24/24 Right heart failure most likely secondary to pulmonary HTN based on the echo findings, likely due to ALLI due to obesity NYHA class ll Plan: -O2 support PRN -Bipap for acute hypercapnia -Pt will need CPAP upon discharge -Repeat ABG showed hypercapnia -Daily weights, strict I&Os, fluid restriction to 1500cc daily -Lasix 40mg IV Qday, spironolactone 25mg daily and Amlodipine 10mg daily -Consulted Cardiology, appreciate recommendations #Coccidioidomycosis- ruled out -Cocci IgM is positive, UCD confirmatory test is negative -Pt works in the [employer] -Discontinue flucanazole 400mg Qday #Left foot pain -Pt is complaining of new onset of severe left foot pain and tenderness. Limited range of motion on physical exam -Xray of left foot shows osteoarthritis pattern -Pain meds PRN #Cirrhosis #Ascites, mild #Liver lesion, right lobe #Alcohol use disorder -CT abdomen/pelvis: Cirrhosis, 8 mm posterior right lobe liver lesion, mild ascites, anasarca, 8 mm posterior right lobe liver lesion -Pt endorses to drinking alcohol daily -AST and ALT with in normal limits -Child Crespo score: 7, class B Indication for transplant evaluation, Abdominal surgery lindy-operative mortality: 30% -Pt will need outpatient follow up and referral to business law teacher -Pt is advised on complete abstinence from alcohol #Umbilical hernia -12mm fat-containing umbilical hernia -Pt denies abdominal pain, asymptomatic -Will need outpatient follow up Health Maintenance Disposition: telemetry, pt is requiring BiPap due to acute hypoxic hypercapnic respiratory failure DVT Prophylaxis: Heparin 5000 units SC Q8 hrs GI Prophylaxis: not indicated Diet: cardiac diet Lines: Peripheral lines Code status: Full Assessment and plan discussed with my attending physician Dr. Cortney Roth (PGY-1)- Internal medicine resident
--- NOTE | 2024-07-29 20:41 | PD.RESPRO ---
Documentation for date of: 07/29/24 Subjective Subjective Interval history: Patient has a limited past medical history, who is denying hypertension and diabtes. Patient presented to the emergency room with chief complain of shortness of breath and worsened by exertion for over 1 month. Patient stated past smoking history and quit about 15 years ago, starting in his early 20s. Patient drinks about 8, 12 oz-beers daily. Patient was admitted for new onset on CHF exacerbation. 07/28/2024: Patient examined at bedside. Patient stated overnight use of Bipap. Currently on NC, continues to be on 6 L, saturating well. Patient encouraged to ampulate at least to restroom with help of CERTIFIED MEDICINE AIDE. No cardiac complains. Denied chest pain or palpitations. Improved shortness of breath. Lasix 40 mg IV recommended, continue to monitor kidney function. In and Out takes 1290/3525/-2235 07/29/2024: No overnight events. Patient used Bipap overnight, patient stated he is getting used it. Patient denied chest pain or palpitations. Improved shortness of breath, now 4 L NC-->continue to titrate down. Patient is pending Cpap and will likely will be discharge in the next 24 hours. Discharge patient on Lasix 40 mg PO qday and Spironolactone 25 mg PO qday. Patient will need BNP, Magnesium, and renal panel within one week of discharge-with PCP follow up. Ins and Outs: 1380/4050/-2670 Dry Weight: 100.516 kg Exam Vital Signs Temp Pulse Resp BP Pulse Ox O2 Del Method O2 Flow Rate 97.7 F 102 H 15 125/92 H 99 Nasal Cannula 3 07/29/24 20:00 07/29/24 20:00 07/29/24 20:00 07/29/24 20:00 07/29/24 20:00 07/29/24 20:00 07/29/24 20:00 FiO2 40 07/29/24 16:00 Narrative Exam General Appearance: Alert & Oriented X3, well-nourished male who is lying in bed in no acute distress HEENT: Skull symmetrical and atraumatic. Conjunctivae pink and moist. Scleral icterus noted. Pupils equal, round, reactive to light and accommodation (PERRL). External ear without lesion or discharge. Straight, nares patient, mucosa pink, no discharge. No thyroid nodule appreciated. No cervical lymphadenopathy. Cardio: Normal Rate and Rhythm with S1 and S2 heart sounds. No murmurs or extra heart sounds auscultated. No bruits on carotid auscultation. No peripheral edema or cyanosis. Lungs: Symmetric with good expansion. Chest and back non-tender. Breath sounds vesicular with mild crackles , improved. Abdomen: Non-tender, Non-distended, Normal Reactive Bowel Sounds Neuro: Alert, cooperative, oriented to person, place, and time. Speech clear. CN grossly intact. Upper motor strength 5/5 and Lower motor strength 5/5. Sensation intact. Objective Labs 07/30/24 05:30 07/30/24 05:30 Labs: Laboratory Results - last 24 hr 07/29/24 05:21 WBC 10.2 RBC 5.43 Hgb 16.1 H Hct 50.1 MCV 92 MCH 29.7 MCHC 32.1 RDW Std Deviation 54.8 H Plt Count 271 D Neut % (Auto) 76 Lymph % (Auto) 10 [place] % (Auto) 10 Eos % (Auto) 4 Baso % (Auto) 0 Neut # (Auto) 7.8 H Lymph # (Auto) 1.0 [place] # (Auto) 1.0 H Eos # (Auto) 0.4 Baso # (Auto) 0.0 Immature Gran # (Auto) 0.04 H Absolute Nucleated RBC 0.00 Immature Gran % 0 Nucleated RBC % 0 Sodium 139 Potassium 3.8 Chloride 97 L Carbon Dioxide 33.7 H Anion Gap 8 BUN 14 Creatinine 0.7 Estim Creat Clear Calc 158.3 eGFR > 60 BUN/Creatinine Ratio 20 Glucose 101 Calculated Osmolality 278 Calcium 9.0 Corrected Calcium 9.2 Phosphorus 4.0 Magnesium 2.0 Total Bilirubin 1.0 AST 24 ALT 27 Alkaline Phosphatase 74 Total Protein 6.8 Albumin 3.7 Globulin 3.1 Albumin/Globulin Ratio 1.2 ABG Interpretation ABG results: 07/23/24 07/23/24 07/24/24 08:41 14:36 08:48 ABG pH 7.30 L 7.29 L 7.37 ABG pCO2 61 H 67 H 67 H ABG pO2 96 101 63 L D ABG HCO3 30 H 32 H 38 H ABG O2 Saturation 96 96 90 L ABG Base Excess 2 3 9 H 07/25/24 08:04 ABG pH 7.40 ABG pCO2 63 H ABG pO2 52 L* ABG HCO3 38 H ABG O2 Saturation 85 L ABG Base Excess 10 H Quality Measures Quality Measures none Assessment & Plan Assessment Current Active Medications: Generic Name Dose Route Start Last Admin Trade Name Freq PRN Reason Stop Dose Admin Acetaminophen 650 mg 07/27/24 16:22 07/28/24 23:39 Acetaminophen 325 Mg Tablet PO 08/22/24 11:57 650 mg Q6H PRN Administration Fever >100.3 Albuterol/Ipratropium 3 ml 07/23/24 16:00 Albuterol/Ipratropium (Duoneb) Rt Unique 3 Ml Nebu INH 08/22/24 12:59 Q6HRRT PRN SHORTNESS OF BREATH OR WHEEZE Amlodipine Besylate 10 mg 07/28/24 09:00 07/29/24 09:47 Amlodipine Besylate 5 Mg Tablet PO 08/27/24 08:59 10 mg QDAY LIANG Administration Artificial Tears 0 drop 07/25/24 08:23 07/25/24 08:41 Artificial Tears 225 Drop/15 Ml Btl BOTH EYES 08/24/24 08:22 2 drops PRN PRN Administration TO KEEP EYES MOIST Furosemide 40 mg 07/28/24 09:00 07/29/24 09:46 Furosemide Inj 10 Mg/Ml 4ml Vial IVP 08/27/24 08:59 40 mg QDAY LIANG Administration Heparin Sodium (Porcine) 5,000 unit 07/23/24 14:00 07/29/24 13:22 Heparin Sod Inj 5000 Unit/Ml Vial SC 08/06/24 13:59 5,000 unit Q8HR LIANG Administration Morphine Sulfate 2 mg 07/27/24 16:20 Morphine Sulf Inj 10 Mg/Ml Vial IVP 08/01/24 16:19 Q6HR PRN Pain 7-10 Ondansetron HCl 4 mg 07/23/24 11:58 Ondansetron Inj 2 Mg/Ml Inj 2 Ml IVP 08/22/24 11:57 Q6H PRN NAUSEA OR VOMITING Protocol Spironolactone 25 mg 07/27/24 09:00 07/29/24 09:46 Spironolactone 25 Mg Tablet PO 08/26/24 08:59 25 mg QDAY LIANG Administration Plan Patient is a 43 year old male with a limited past medical history. Patient was admitted with new onset of CHF, found to have HFpEF 50 to 55%, Pulmonary Artery Enlargment, and Moderate RV Systolic Dysfunction. Cardiology consulted for pulmonary artery largment and RV Systolic Dysfunction. #Acute Hypercapnic Respiratory Failure #Congestive Heart Failure, new onset #CHF HFpEF 50% to 55% #Grade I Diastolic Dysfunction #Moderate PAH, 55 to 60 mmhg #Pulmonary Artery Enlargment #Moderate RV systolic Dysfunction #Moderate Right Pleural Effusion #ALLI/OHS Isolated right heart systolic dysfunction w enlarged main pulmonary artery and normal RVSP 31 mmhg likely in the setting of Obstructive Sleep Apnea given obesity and history of snoring vs may be secondary to cirrhosis but inferior vena cava and hepatic veins do not appear distended vs meth use although patient denied history, consider utox vs PE give D-Dimer although less likely given CTA Chest negative. Autoimmune condition can not be ruled and DOLORES should be consider as patient is younger. Given small to moderate effusion, patient may benefit thora but pleural effusion maybe too small Echo (07/27/2024): Normal LV size and function. There is grade I diastolic dysfunction. Estimated EF at 55 to 60%. Mildly dilated RV but RV systolic function normal. Estimated RVSP is moderately elevated at 55 to 60 mmHg.Paradoxical septal motion noted. D-shaped septum in both systole and diastole indicating both RV pressure and volume overload. Mildly dilated RA. Mildly dilated IVC. Mild to moderate TR. Mild MR.Small pericardial effusion noted without any evidence of any cardiac tamponade TSH 0.94, A1c 6.1 % BNP 638 Lipid Panel (07/24/2024): Triglycerides 77, Cholesterol 121, LDL 76, HDL 30 Ins and Outs: 1380/4050/-2670 Cumulative Balance -22,120 ml Dry Weight: 100.516 kg NYHA Class: II ASCVD: 1.9%, no statins recommend Plan: -Discharge on Lasix 40 mg PO qday -BNP AM -Lasix 40 mg IV once daily -DOLORES w/ reflex obtained -K>4 and Mg >2 -SpO <90%, support PRN -Daily Weights, Strict Ins and Outs, Fluid Striction (1500ml), Sodium Restriction 2 grams per day #Hypertension Patient noted to be hypertensive prior this morning Plan -Amlodipine 10 mg PO -Amlodipine and then later can be started on ARB's as outpatient #Cirrhosis, decompensated with MIld Ascites, likely secondary to alcohol use On admission CT abdomen noted for cirrhosis with mild ascites. Cirrhosis likely secondary to alcohol use disorder as patient typically drinks 8 beers of 12 ounce cans daily vs cirrhosis secondary to right heart failure. Diagnostics PT 13, INR 1.2, PTT 29.6, 07/24/2024 AST is 24, ALT 25, albumin 3.5 Child-Crespo Score 7 points, Child Class B, Abdominal surgery lindy-operative mortality 30% Plan -Spirnolactone 25 mg once daily & Lasix -Continue to monitor AST's and ALT's. - Negative Hepatitis panel and HIV - Patient would benefit from GI consult as outpatient liver biopsy #Pneumonia, Cocci Patient positive for IgM Plan -Fluconazole started -If limited clinical improvement, patient may benefit from ID consult for amphotericin, but likely pulmonary changes secondary to pulmonary vascular congestion #Polycythemia, likely secondary to ALLI/OHS Patient has a past medical history of sleeping and increase BMI, likely secondary to ALLI, less likely secondary to Vincent mutation #Incidential 12 mm fat-containing umbilical hernia #18 mm posterior right lobe liver lesion, recommend elective MRI abdomen follow-up pre and post-contrast #History of smoking 10 pack year smoking history #Pre-diabetes Health Maintenance: Disp: Pt is currently admitted to floors for further management of acute CHF exacerbation, cardiology consulted. Patient will need to follow up with a PCP and PCP -->send referral to supervisor sterile processing. Please follow up with PCP within 1 week of discharge. Labs needed as outpatient: Renal Panel, Mg, and BNP. FEN: cardiac diet DVT: on subQ heparin q8HRs Code: Full Code - The patient's plan was discussed with attending Dr. Jonathan Butler MD PGY1 Internal Medicine Attending Provider Attestation/Addendum I have personally seen and examined the patient separately on the above date of service and discussed the plan of care with the resident. I reviewed the resident Dr. Annie Butler consultation progress note and agree with the resident findings and plan in the note above and have also edited the documentation to reflect my findings and plan. Marcus Castillo M.D. Interventional Cardiology
[2024-07-30] VITALS (14 sets, daily range): BP systolic 120–141; BP diastolic 77–92; PULSE 90–104; RESP 17–28; TEMP 36.5–36.6; O2SAT 90–96
[2024-07-30] MEDS: HEPARIN SOD INJ 5000 UNIT/ML VIAL SC ×3 (05:10→21:11)
[2024-07-30 06:00] LABS: Basophils % (Auto) 0 % (0-2.5); Eosinophils # (Auto) 0.4 Thou/mm3 (0.0-0.5); Eosinophils % (Auto) 4 % (0-10); Hematocrit 49.9 % (41.0-53.0); Hemoglobin 15.9 g/dL (13.5-16.0); Immature Granulocytes % (Auto) 0 % (0-0); Immature Granulocytes Auto 0.03 Thou/mm3 (0.00-0.00); Lymphocytes # (Auto) 1.7 Thou/mm3 (1.0-4.8); Lymphocytes % (Auto) 17 % (10-50); Mean Corpuscular HGB Conc 31.9 g/dl (31.0-37.0); Mean Corpuscular Hemoglobin 29.3 pg (25.0-35.0); Mean Corpuscular Volume 92 fL (80-100); Monocytes # (Auto) 1.2 Thou/mm3 (0.0-0.8); Monocytes % (Auto) 11 % (0-12); Neutrophils # (Auto) 7.1 Thou/mm3 (1.8-7.7); Neutrophils % (Auto) 68 % (37-80); Nucleated Red Blood Cell % 0 /100 WBC (0); Platelet Count 296 Thou/mm3 (140-440); RDW Standard Deviation 53.8 fL (35.1-43.9); Red Blood Count 5.43 Miln/mm3 (4.50-5.90); White Blood Count 10.5 Thou/mm3 (3.8-10.6)
[2024-07-30 06:25] LABS: B-Type Natriuretic Peptide 75 pg/mL (0-100)
[2024-07-30 06:33] LABS: Alanine Aminotransferase 37 U/L (10-49); Albumin/Globulin Ratio 1.2 (1.2-2.2); Alkaline Phosphatase 86 U/L (46-116); Anion Gap 6 (7-16); Aspartate Amino Transferase 33 U/L (0-34); BUN/Creatinine Ratio 16 Ratio (12-20); Blood Urea Nitrogen 13 mg/dL (9-23); Calcium 9.4 mg/dL (8.3-10.6); Calcium (Corrected) 9.4 mg/dL (8.5-10.1); Carbon Dioxide 35.2 mMol/L (20.0-31.0); Chloride 95 mMol/L (98-107); Creatinine (Component) 0.8 mg/dL (0.6-1.3); Estimated Creatinine Clearance 138.6 mL/min (>60); Globulin 3.3 gm/dL (2.3-3.5); Glucose 105 mg/dL (74-106); Osmolality,Calculated 272 (275-295); Potassium 3.6 mMol/L (3.4-5.1); Sodium 136 mMol/L (136-145); Total Protein 7.3 gm/dL (5.7-8.2); eGFR > 60 See Note
[2024-07-30] MEDS: amLODIPine BESYLATE 5 MG TABLET 10 MG PO (08:13)
[2024-07-30] MEDS: FUROSEMIDE INJ 10 MG/ML 4ML VIAL 40 MG IVP (08:14)
[2024-07-30] MEDS: SPIRONOLACTONE 25 MG TABLET PO (08:14)
[2024-07-30] MEDS: DAPAGLIFLOZIN PROPANEDIOL 5 MG TABLET PO ×2 (11:31→14:40)
--- NOTE | 2024-07-30 12:49 | PC.SS ---
Follow up note: Pt has O2 concentrator and small O2 tank at bedside. SS spoke to Elaina from [facility] who states Trilogy Machine has been ordered and is waiting for insurance approval. Pt is aware. Pt will return home upon dc.
--- NOTE | 2024-07-30 15:07 | ESPR_ITS ---
Documentation for date of: 07/30/24 Subjective Subjective Interval history: No acute overnight events reported. Patient seen and examined at bedside this morning. Patient saturating 94% on 4 oxygen via nasal cannula. Patient continues to use BiPAP overnight. Patient has no complaints states he feels great. Patient is net -2020 mL and total urine output was 2460. Per cardio recommendation will transition patient to p.o. Lasix. Patient is pending trilogy machine approval. Will add Farxiga for HFpEF. Vitals are stable with blood pressure 125/92 labs are significant for bicarb 35.2 likely secondary to contraction alkalosis in the setting of diuretics. Will continue to monitor patient's daily CMP. Exam Vital Signs Temp Pulse Resp BP Pulse Ox O2 Del Method O2 Flow Rate 97.7 F 98 17 136/88 H 94 L Nasal Cannula 4 07/30/24 12:00 07/30/24 12:42 07/30/24 12:00 07/30/24 12:00 07/30/24 12:00 07/30/24 12:00 07/30/24 12:00 FiO2 40 07/29/24 16:00 Narrative Exam GENERAL: A&Ox3 , middle aged obese male, Awake saturating via NC, cooperative, Not in acute distress NEURO: no focal neurological deficits HEENT: Atraumatic, Normocephalic. mucous membranes moist. Eyes open, symmetrical, & clear HEART: Normal Heart Sounds LUNGS: Clear to auscultation with no wheezing or crackles. ABDOMEN: soft, non-distended, non-tender, bowel sounds heard, no guarding or rebound tenderness SKIN: No Rash or ecchymoses EXTREMITIES: trace pitting edema, tenderness, able to move all 4 extremities, pedal pulses palpated Objective Labs 07/30/24 05:30 07/30/24 05:30 Labs: Laboratory Results - last 24 hr 07/30/24 05:30 WBC 10.5 RBC 5.43 Hgb 15.9 Hct 49.9 MCV 92 MCH 29.3 MCHC 31.9 RDW Std Deviation 53.8 H Plt Count 296 Neut % (Auto) 68 Lymph % (Auto) 17 [place] % (Auto) 11 Eos % (Auto) 4 Baso % (Auto) 0 Neut # (Auto) 7.1 Lymph # (Auto) 1.7 [place] # (Auto) 1.2 H Eos # (Auto) 0.4 Baso # (Auto) 0.0 Immature Gran # (Auto) 0.03 H Absolute Nucleated RBC 0.00 Immature Gran % 0 Nucleated RBC % 0 Sodium 136 Potassium 3.6 Chloride 95 L Carbon Dioxide 35.2 H Anion Gap 6 L BUN 13 Creatinine 0.8 Estim Creat Clear Calc 138.6 eGFR > 60 BUN/Creatinine Ratio 16 Glucose 105 Calculated Osmolality 272 L Calcium 9.4 Corrected Calcium 9.4 Phosphorus 4.0 Magnesium 2.0 Total Bilirubin 1.0 AST 33 ALT 37 Alkaline Phosphatase 86 B-Natriuretic Peptide 75 Total Protein 7.3 Albumin 4.0 Globulin 3.3 Albumin/Globulin Ratio 1.2 ABG Interpretation ABG results: 07/23/24 07/23/24 07/24/24 08:41 14:36 08:48 ABG pH 7.30 L 7.29 L 7.37 ABG pCO2 61 H 67 H 67 H ABG pO2 96 101 63 L D ABG HCO3 30 H 32 H 38 H ABG O2 Saturation 96 96 90 L ABG Base Excess 2 3 9 H 07/25/24 08:04 ABG pH 7.40 ABG pCO2 63 H ABG pO2 52 L* ABG HCO3 38 H ABG O2 Saturation 85 L ABG Base Excess 10 H Quality Measures Quality Measures none Assessment & Plan Assessment Current Active Medications: Generic Name Dose Route Start Last Admin Trade Name Freq PRN Reason Stop Dose Admin Acetaminophen 650 mg 07/27/24 16:22 07/28/24 23:39 Acetaminophen 325 Mg Tablet PO 08/22/24 11:57 650 mg Q6H PRN Administration Fever >100.3 Albuterol/Ipratropium 3 ml 07/23/24 16:00 Albuterol/Ipratropium (Duoneb) Rt Unique 3 Ml Nebu INH 08/22/24 12:59 Q6HRRT PRN SHORTNESS OF BREATH OR WHEEZE Amlodipine Besylate 10 mg 07/28/24 09:00 07/30/24 08:13 Amlodipine Besylate 5 Mg Tablet PO 08/27/24 08:59 10 mg QDAY LIANG Administration Artificial Tears 0 drop 07/25/24 08:23 07/25/24 08:41 Artificial Tears 225 Drop/15 Ml Btl BOTH EYES 08/24/24 08:22 2 drops PRN PRN Administration TO KEEP EYES MOIST Dapagliflozin 10 mg 07/31/24 09:00 Dapagliflozin Propanediol 5 Mg Tablet PO 08/30/24 08:59 QAM LIANG Furosemide 40 mg 07/31/24 09:00 Furosemide 40 Mg Tablet PO 08/30/24 08:59 QDAY LIANG Heparin Sodium (Porcine) 5,000 unit 07/23/24 14:00 07/30/24 14:39 Heparin Sod Inj 5000 Unit/Ml Vial SC 08/06/24 13:59 5,000 unit Q8HR LIANG Administration Morphine Sulfate 2 mg 07/27/24 16:20 Morphine Sulf Inj 10 Mg/Ml Vial IVP 08/01/24 16:19 Q6HR PRN Pain 7-10 Ondansetron HCl 4 mg 07/23/24 11:58 Ondansetron Inj 2 Mg/Ml Inj 2 Ml IVP 08/22/24 11:57 Q6H PRN NAUSEA OR VOMITING Protocol Spironolactone 25 mg 07/27/24 09:00 07/30/24 08:14 Spironolactone 25 Mg Tablet PO 08/26/24 08:59 25 mg QDAY LIANG Administration Plan Mr. Boudreaux is a 43 year old male with no known past medical history presented to the ED complaining of worsening shortness of breath. Pt is admitted for management of acute hypoxic hypercapnic respiratory failure secondary to CHF exacerbation requiring Bipap and IV diuretics. #Acute Hypoxic hypercapnic respiratory failure 2/2 to #Acute exacerbation of CHF, HFpEF EF 55-60% #Right heart failure #Pulmonary HTN, Moderate #ALLI #Anasarca Pt complains of progressively worsening exertional shortness of breath started June 15, denies orthpnea and PND. Pt also noted abdominal bloating BNP 638, troponin <0.020 Chest x-ray: Moderate enlargement cardiac contour, mild vascular congestion EKG: Sinus tachycardia with rate of [address] abdomen/pelvis: Cirrhosis, 8 mm posterior right lobe liver lesion, mild ascites, anasarca, 12 mm fat-containing umbilical hernia ABG on admission : pH 7.30, CO2 61, pO2 96, HCO3 30, O2 sat 96% Echo done on 07/24/24 Right heart failure most likely secondary to pulmonary HTN based on the echo findings, likely due to ALLI due to obesity NYHA class ll Plan: -O2 support PRN -Continue Bipap HS -Pending trilogy machine -Daily weights, strict I&Os, fluid restriction to 1500cc daily -Lasix 40mg IV Qday, Farxiga 10mg Qday, spironolactone 25mg daily and Amlodipine 10mg daily -Consulted Cardiology, appreciate recommendations #Coccidioidomycosis- ruled out -Cocci IgM is positive, UCD confirmatory test is negative -Pt works in the [employer] -Discontinue flucanazole 400mg Qday #Left foot pain- resolved -Pt is complaining of new onset of severe left foot pain and tenderness. 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 Magno Roth (PGY-1)- Internal medicine resident Attending Provider Attestation/Addendum I have discussed and was present for the essential components of the history, physical examination, diagnosis, and treatment plan with the resident. I agree with the patient's care as documented by the resident and amended herein by me. Hank Kiran DO. Although this document has been carefully reviewed, there may still be some phonetic and other typographical errors. These errors are purely grammatical due to imperfections in the software program and should not be construed in any way to compromise the substance of the patient's medical care during this visit.
--- NOTE | 2024-07-30 20:27 | ESPR_ITS ---
Documentation for date of: 07/30/24 Subjective Subjective Interval history: Patient has a limited past medical history, who is denying hypertension and diabtes. Patient presented to the emergency room with chief complain of shortness of breath and worsened by exertion for over 1 month. Patient stated past smoking history and quit about 15 years ago, starting in his early 20s. Patient drinks about 8, 12 oz-beers daily. Patient was admitted for new onset on CHF exacerbation. 07/28/2024: Patient examined at bedside. Patient stated overnight use of Bipap. Currently on NC, continues to be on 6 L, saturating well. Patient encouraged to ampulate at least to restroom with help of CLINICAL NURSING INSTRUCTOR. No cardiac complains. Denied chest pain or palpitations. Improved shortness of breath. Lasix 40 mg IV recommended, continue to monitor kidney function. In and Out takes 1290/3525/-2235 07/29/2024: No overnight events. Patient used Bipap overnight, patient stated he is getting used it. Patient denied chest pain or palpitations. Improved shortness of breath, now 4 L NC-->continue to titrate down. Patient is pending Cpap and will likely will be discharge in the next 24 hours. Discharge patient on Lasix 40 mg PO qday and Spironolactone 25 mg PO qday. Patient will need BNP, 07/30/2024: Patient continues to have improved work of breathing and continues to us night time bipap for ALLI. Patient is pending Cpap machine. Magnesium, and renal panel within one week of discharge-with PCP follow up. Ins and Outs: 2460/4480/-2019 Dry Weight: 100.516 kg Dry BNP 75 Exam Vital Signs Temp Pulse Resp BP Pulse Ox O2 Del Method O2 Flow Rate 97.9 F 104 H 18 120/77 94 L Nasal Cannula 4 07/30/24 16:00 07/30/24 19:42 07/30/24 19:42 07/30/24 16:00 07/30/24 19:42 07/30/24 16:00 07/30/24 19:42 FiO2 40 07/29/24 16:00 Narrative Exam General Appearance: Alert & Oriented X3, well-nourished male who is lying in bed in no acute distress HEENT: Skull symmetrical and atraumatic. Conjunctivae pink and moist. Scleral icterus,improved. Pupils equal, round, reactive to light and accommodation (PERRL). External ear without lesion or discharge. Straight, nares patient, mucosa pink, no discharge. No thyroid nodule appreciated. No cervical lymphadenopathy. Cardio: Normal Rate and Rhythm with S1 and S2 heart sounds. No murmurs or extra heart sounds auscultated. No bruits on carotid auscultation. No peripheral edema or cyanosis. Lungs: Symmetric with good expansion. Chest and back non-tender. Breath sounds vesicular with mild crackles , improved. Abdomen: Non-tender, Non-distended, Normal Reactive Bowel Sounds Neuro: Alert, cooperative, oriented to person, place, and time. Speech clear. CN grossly intact. Upper motor strength 5/5 and Lower motor strength 5/5. Sensation intact. Objective Labs 08/01/24 04:32 08/01/24 04:32 Labs: Laboratory Results - last 24 hr 07/30/24 05:30 WBC 10.5 RBC 5.43 Hgb 15.9 Hct 49.9 MCV 92 MCH 29.3 MCHC 31.9 RDW Std Deviation 53.8 H Plt Count 296 Neut % (Auto) 68 Lymph % (Auto) 17 [place] % (Auto) 11 Eos % (Auto) 4 Baso % (Auto) 0 Neut # (Auto) 7.1 Lymph # (Auto) 1.7 [place] # (Auto) 1.2 H Eos # (Auto) 0.4 Baso # (Auto) 0.0 Immature Gran # (Auto) 0.03 H Absolute Nucleated RBC 0.00 Immature Gran % 0 Nucleated RBC % 0 Sodium 136 Potassium 3.6 Chloride 95 L Carbon Dioxide 35.2 H Anion Gap 6 L BUN 13 Creatinine 0.8 Estim Creat Clear Calc 138.6 eGFR > 60 BUN/Creatinine Ratio 16 Glucose 105 Calculated Osmolality 272 L Calcium 9.4 Corrected Calcium 9.4 Phosphorus 4.0 Magnesium 2.0 Total Bilirubin 1.0 AST 33 ALT 37 Alkaline Phosphatase 86 B-Natriuretic Peptide 75 Total Protein 7.3 Albumin 4.0 Globulin 3.3 Albumin/Globulin Ratio 1.2 ABG Interpretation ABG results: 07/23/24 07/23/24 07/24/24 08:41 14:36 08:48 ABG pH 7.30 L 7.29 L 7.37 ABG pCO2 61 H 67 H 67 H ABG pO2 96 101 63 L D ABG HCO3 30 H 32 H 38 H ABG O2 Saturation 96 96 90 L ABG Base Excess 2 3 9 H 07/25/24 08:04 ABG pH 7.40 ABG pCO2 63 H ABG pO2 52 L* ABG HCO3 38 H ABG O2 Saturation 85 L ABG Base Excess 10 H Quality Measures Quality Measures none Assessment & Plan Assessment Current Active Medications: Generic Name Dose Route Start Last Admin Trade Name Freq PRN Reason Stop Dose Admin Acetaminophen 650 mg 07/27/24 16:22 07/28/24 23:39 Acetaminophen 325 Mg Tablet PO 08/22/24 11:57 650 mg Q6H PRN Administration Fever >100.3 Albuterol/Ipratropium 3 ml 07/23/24 16:00 Albuterol/Ipratropium (Duoneb) Rt Unique 3 Ml Nebu INH 08/22/24 12:59 Q6HRRT PRN SHORTNESS OF BREATH OR WHEEZE Amlodipine Besylate 10 mg 07/28/24 09:00 07/30/24 08:13 Amlodipine Besylate 5 Mg Tablet PO 08/27/24 08:59 10 mg QDAY LIANG Administration Artificial Tears 0 drop 07/25/24 08:23 07/25/24 08:41 Artificial Tears 225 Drop/15 Ml Btl BOTH EYES 08/24/24 08:22 2 drops PRN PRN Administration TO KEEP EYES MOIST Dapagliflozin 10 mg 07/31/24 09:00 Dapagliflozin Propanediol 5 Mg Tablet PO 08/30/24 08:59 QAM LIANG Furosemide 40 mg 07/31/24 09:00 Furosemide 40 Mg Tablet PO 08/30/24 08:59 QDAY LIANG Heparin Sodium (Porcine) 5,000 unit 07/23/24 14:00 07/30/24 14:39 Heparin Sod Inj 5000 Unit/Ml Vial SC 08/06/24 13:59 5,000 unit Q8HR LIANG Administration Morphine Sulfate 2 mg 07/27/24 16:20 Morphine Sulf Inj 10 Mg/Ml Vial IVP 08/01/24 16:19 Q6HR PRN Pain 7-10 Ondansetron HCl 4 mg 07/23/24 11:58 Ondansetron Inj 2 Mg/Ml Inj 2 Ml IVP 08/22/24 11:57 Q6H PRN NAUSEA OR VOMITING Protocol Spironolactone 25 mg 07/27/24 09:00 07/30/24 08:14 Spironolactone 25 Mg Tablet PO 08/26/24 08:59 25 mg QDAY LIANG Administration Plan Patient is a 43 year old male with a limited past medical history. Patient was admitted with new onset of CHF, found to have HFpEF 50 to 55%, Pulmonary Artery Enlargment, and Moderate RV Systolic Dysfunction. Cardiology consulted for pulmonary artery largment and RV Systolic Dysfunction. #Acute Hypercapnic Respiratory Failure #Congestive Heart Failure, new onset #CHF HFpEF 50% to 55% #Grade I Diastolic Dysfunction #Moderate PAH, 55 to 60 mmhg #Pulmonary Artery Enlargment #Moderate RV systolic Dysfunction #Moderate Right Pleural Effusion #ALLI/OHS Isolated right heart systolic dysfunction w enlarged main pulmonary artery and normal RVSP 31 mmhg likely in the setting of Obstructive Sleep Apnea given obesity and history of snoring vs may be secondary to cirrhosis but inferior vena cava and hepatic veins do not appear distended vs meth use although patient denied history, consider utox vs PE give D-Dimer although less likely given CTA Chest negative. Autoimmune condition can not be ruled and DOLORES should be consider as patient is younger. Given small to moderate effusion, patient may benefit thora but pleural effusion maybe too small Echo (07/27/2024): Normal LV size and function. There is grade I diastolic dysfunction. Estimated EF at 55 to 60%. Mildly dilated RV but RV systolic function normal. Estimated RVSP is moderately elevated at 55 to 60 mmHg.Paradoxical septal motion noted. D-shaped septum in both systole and diastole indicating both RV pressure and volume overload. Mildly dilated RA. Mildly dilated IVC. Mild to moderate TR. Mild MR.Small pericardial effusion noted without any evidence of any cardiac tamponade TSH 0.94, A1c 6.1 % BNP 638 Lipid Panel (07/24/2024): Triglycerides 77, Cholesterol 121, LDL 76, HDL 30 Ins and Outs: 1380/4050/-2670 Cumulative Balance -22,120 ml Dry BNP 75 Dry Weight: 100.516 kg NYHA Class: II ASCVD: 1.9%, no statins recommend Plan: -Discharge on Lasix 40 mg PO qday -Lasix 40 mg IV once daily -Fargixa by primary team -DOLORES w/ reflex obtained -K>4 and Mg >2 -SpO <90%, support PRN -Daily Weights, Strict Ins and Outs, Fluid Striction (1500ml), Sodium Restriction 2 grams per day #Hypertension Patient noted to be hypertensive prior this morning Plan -Amlodipine 10 mg PO -Amlodipine and then later can be started on ARB's as outpatient #Cirrhosis, decompensated with MIld Ascites, likely secondary to alcohol use On admission CT abdomen noted for cirrhosis with mild ascites. Cirrhosis likely secondary to alcohol use disorder as patient typically drinks 8 beers of 12 ounce cans daily vs cirrhosis secondary to right heart failure. Diagnostics PT 13, INR 1.2, PTT 29.6, 07/24/2024 AST is 24, ALT 25, albumin 3.5 Child-Crespo Score 7 points, Child Class B, Abdominal surgery lindy-operative mortality 30% Plan -Spirnolactone 25 mg once daily & Lasix 40 mg PO -Continue to monitor AST's and ALT's. - Negative Hepatitis panel and HIV - Patient would benefit from GI consult as outpatient liver biopsy #Pneumonia, Cocci Patient positive for IgM. Pneumonia cocci, ruled out. Plan -Fluconazole, DC by primary team -Consider repeat repeat in outpatient setting 2-3 weeks from onset time -If limited clinical improvement, patient may -benefit from ID consult for amphotericin, but likely pulmonary changes secondary to pulmonary vascular congestion #Polycythemia, likely secondary to ALLI/OHS Patient has a past medical history of sleeping and increase BMI, likely secondary to ALLI, less likely secondary to Vincent mutation #Incidential 12 mm fat-containing umbilical hernia #18 mm posterior right lobe liver lesion, recommend elective MRI abdomen follow- up pre and post-contrast #History of smoking 10 pack year smoking history #Pre-diabetes Health Maintenance: Disp: Pt is currently admitted to floors for further management of acute CHF exacerbation, cardiology consulted. Patient will need to follow up with a PCP and PCP -->send referral to hims manager. Please follow up with PCP within 1 week of discharge. Labs needed as outpatient: Renal Panel, Mg, and BNP. FEN: cardiac diet DVT: on subQ heparin q8HRs Code: Full Code - The patient's plan was discussed with attending Dr. Jonathan Butler MD PGY1 Internal Medicine Attending Provider Attestation/Addendum I have personally seen and examined the patient separately on the above date of service and discussed the plan of care with the resident. I reviewed the resident Dr. Annie Butler consultation progress note and agree with the resident findings and plan in the note above and have also edited the documentation to reflect my findings and plan. Marcus Castillo M.D. Interventional Cardiology
[2024-07-31] VITALS (13 sets, daily range): BP systolic 106–132; BP diastolic 79–97; PULSE 85–101; RESP 18–27; TEMP 36.3–37.1; O2SAT 91–95; BMI 30.9
[2024-07-31] MEDS: HEPARIN SOD INJ 5000 UNIT/ML VIAL SC ×3 (05:03→21:04)
[2024-07-31 05:45] LABS: Basophils % (Auto) 0 % (0-2.5); Eosinophils # (Auto) 0.3 Thou/mm3 (0.0-0.5); Eosinophils % (Auto) 3 % (0-10); Hematocrit 47.8 % (41.0-53.0); Hemoglobin 15.8 g/dL (13.5-16.0); Immature Granulocytes % (Auto) 0 % (0-0); Immature Granulocytes Auto 0.04 Thou/mm3 (0.00-0.00); Lymphocytes # (Auto) 1.4 Thou/mm3 (1.0-4.8); Lymphocytes % (Auto) 14 % (10-50); Mean Corpuscular HGB Conc 33.1 g/dl (31.0-37.0); Mean Corpuscular Hemoglobin 29.1 pg (25.0-35.0); Mean Corpuscular Volume 88 fL (80-100); Monocytes # (Auto) 1.2 Thou/mm3 (0.0-0.8); Monocytes % (Auto) 11 % (0-12); Neutrophils # (Auto) 7.4 Thou/mm3 (1.8-7.7); Neutrophils % (Auto) 71 % (37-80); Nucleated Red Blood Cell % 0 /100 WBC (0); Platelet Count 222 Thou/mm3 (140-440); RDW Standard Deviation 51.6 fL (35.1-43.9); Red Blood Count 5.43 Miln/mm3 (4.50-5.90); White Blood Count 10.3 Thou/mm3 (3.8-10.6)
[2024-07-31 06:28] LABS: Alanine Aminotransferase 44 U/L (10-49); Albumin/Globulin Ratio 1.2 (1.2-2.2); Alkaline Phosphatase 92 U/L (46-116); Anion Gap 10 (7-16); Aspartate Amino Transferase 44 U/L (0-34); BUN/Creatinine Ratio 16 Ratio (12-20); Bilirubin,Total 0.5 mg/dL (0.3-1.2); Blood Urea Nitrogen 13 mg/dL (9-23); Calcium 9.5 mg/dL (8.3-10.6); Calcium (Corrected) 9.5 mg/dL (8.5-10.1); Carbon Dioxide 29.1 mMol/L (20.0-31.0); Chloride 97 mMol/L (98-107); Creatinine (Component) 0.8 mg/dL (0.6-1.3); Estimated Creatinine Clearance 138.4 mL/min (>60); Globulin 3.4 gm/dL (2.3-3.5); Glucose 118 mg/dL (74-106); Magnesium 2.1 mg/dL (1.6-2.6); Osmolality,Calculated 273 (275-295); Phosphorous 4.7 mg/dL (2.4-5.1); Potassium 4.4 mMol/L (3.4-5.1); Sodium 136 mMol/L (136-145); Total Protein 7.4 gm/dL (5.7-8.2); eGFR > 60 See Note
[2024-07-31] MEDS: amLODIPine BESYLATE 5 MG TABLET 10 MG PO (08:43)
[2024-07-31] MEDS: Furosemide 40 MG TABLET PO (08:44)
[2024-07-31] MEDS: DAPAGLIFLOZIN PROPANEDIOL 5 MG TABLET 10 MG PO (08:44)
[2024-07-31] MEDS: SPIRONOLACTONE 25 MG TABLET PO (08:44)
--- NOTE | 2024-07-31 14:26 | PC.SS ---
SS spoke to Cristiane from [facility] who explained she has placed Trilogy order stat and has contacted the insurance company to inform them pt is ready for dc. Trilogy is still pending insurance approval. Cristiane explained pt has [facility] now. Dr. Kiran is aware and will re evaluate tomorrow. Pt is possible dc home tomorrow
--- NOTE | 2024-07-31 18:28 | PD.RESPRO ---
Documentation for date of: 07/31/24 Subjective Subjective Interval history: No acute overnight events reported. Patient seen and examined at bedside this morning. Patient is currently saturating on 4 L oxygen via nasal cannula continues to use BiPAP through the night. Vitals are stable labs are reviewed. Patient is net -2170 and urine output is 3750. Patient has been transition to oral Lasix. Patient is currently pending trilogy machine approval. No other complaints. Exam Vital Signs Temp Pulse Resp BP Pulse Ox O2 Del Method O2 Flow Rate 97.8 F 90 21 H 117/81 92 L Nasal Cannula 5 07/31/24 16:00 07/31/24 16:00 07/31/24 16:00 07/31/24 16:00 07/31/24 16:00 07/31/24 16:00 07/31/24 16:00 FiO2 40 07/29/24 16:00 Narrative Exam GENERAL: A&Ox3 , middle aged obese male, Awake saturating via NC, cooperative, Not in acute distress NEURO: no focal neurological deficits HEENT: Atraumatic, Normocephalic. mucous membranes moist. Eyes open, symmetrical, & clear HEART: Normal Heart Sounds LUNGS: Clear to auscultation with no wheezing or crackles. ABDOMEN: soft, non-distended, non-tender, bowel sounds heard, no guarding or rebound tenderness SKIN: No Rash or ecchymoses EXTREMITIES: trace pitting edema, tenderness, able to move all 4 extremities, pedal pulses palpated Objective Labs 08/01/24 04:32 08/01/24 04:32 Labs: Laboratory Results - last 24 hr 07/31/24 05:31 WBC 10.3 RBC 5.43 Hgb 15.8 Hct 47.8 MCV 88 MCH 29.1 MCHC 33.1 RDW Std Deviation 51.6 H Plt Count 222 D Neut % (Auto) 71 Lymph % (Auto) 14 [place] % (Auto) 11 Eos % (Auto) 3 Baso % (Auto) 0 Neut # (Auto) 7.4 Lymph # (Auto) 1.4 [place] # (Auto) 1.2 H Eos # (Auto) 0.3 Baso # (Auto) 0.0 Immature Gran # (Auto) 0.04 H Absolute Nucleated RBC 0.00 Immature Gran % 0 Nucleated RBC % 0 Sodium 136 Potassium 4.4 D Chloride 97 L Carbon Dioxide 29.1 Anion Gap 10 BUN 13 Creatinine 0.8 Estim Creat Clear Calc 138.4 eGFR > 60 BUN/Creatinine Ratio 16 Glucose 118 H Calculated Osmolality 273 L Calcium 9.5 Corrected Calcium 9.5 Phosphorus 4.7 Magnesium 2.1 Total Bilirubin 0.5 D AST 44 H ALT 44 Alkaline Phosphatase 92 Total Protein 7.4 Albumin 4.0 Globulin 3.4 Albumin/Globulin Ratio 1.2 ABG Interpretation ABG results: 07/23/24 07/23/24 07/24/24 08:41 14:36 08:48 ABG pH 7.30 L 7.29 L 7.37 ABG pCO2 61 H 67 H 67 H ABG pO2 96 101 63 L D ABG HCO3 30 H 32 H 38 H ABG O2 Saturation 96 96 90 L ABG Base Excess 2 3 9 H 07/25/24 08:04 ABG pH 7.40 ABG pCO2 63 H ABG pO2 52 L* ABG HCO3 38 H ABG O2 Saturation 85 L ABG Base Excess 10 H Quality Measures Quality Measures none Assessment & Plan Assessment Current Active Medications: Generic Name Dose Route Start Last Admin Trade Name Freq PRN Reason Stop Dose Admin Acetaminophen 650 mg 07/27/24 16:22 07/28/24 23:39 Acetaminophen 325 Mg Tablet PO 08/22/24 11:57 650 mg Q6H PRN Administration Fever >100.3 Albuterol/Ipratropium 3 ml 07/23/24 16:00 Albuterol/Ipratropium (Duoneb) Rt Unique 3 Ml Nebu INH 08/22/24 12:59 Q6HRRT PRN SHORTNESS OF BREATH OR WHEEZE Amlodipine Besylate 10 mg 07/28/24 09:00 07/31/24 08:43 Amlodipine Besylate 5 Mg Tablet PO 08/27/24 08:59 10 mg QDAY LIANG Administration Artificial Tears 0 drop 07/25/24 08:23 07/25/24 08:41 Artificial Tears 225 Drop/15 Ml Btl BOTH EYES 08/24/24 08:22 2 drops PRN PRN Administration TO KEEP EYES MOIST Dapagliflozin 10 mg 07/31/24 09:00 07/31/24 08:44 Dapagliflozin Propanediol 5 Mg Tablet PO 08/30/24 08:59 10 mg QAM LIANG Administration Furosemide 40 mg 07/31/24 09:00 07/31/24 08:44 Furosemide 40 Mg Tablet PO 08/30/24 08:59 40 mg QDAY LIANG Administration Heparin Sodium (Porcine) 5,000 unit 07/23/24 14:00 07/31/24 14:19 Heparin Sod Inj 5000 Unit/Ml Vial SC 08/06/24 13:59 5,000 unit Q8HR LIANG Administration Morphine Sulfate 2 mg 07/27/24 16:20 Morphine Sulf Inj 10 Mg/Ml Vial IVP 08/01/24 16:19 Q6HR PRN Pain 7-10 Ondansetron HCl 4 mg 07/23/24 11:58 Ondansetron Inj 2 Mg/Ml Inj 2 Ml IVP 08/22/24 11:57 Q6H PRN NAUSEA OR VOMITING Protocol Spironolactone 25 mg 07/27/24 09:00 07/31/24 08:44 Spironolactone 25 Mg Tablet PO 08/26/24 08:59 25 mg QDAY LIANG Administration Plan Mr. Boudreaux is a 43 year old male with no known past medical history presented to the ED complaining of worsening shortness of breath. Pt is admitted for management of acute hypoxic hypercapnic respiratory failure secondary to CHF exacerbation requiring Bipap and IV diuretics. #Acute Hypoxic hypercapnic respiratory failure 2/2 to #Acute exacerbation of CHF, HFpEF EF 55-60% #Right heart failure #Pulmonary HTN, Moderate #ALLI #Anasarca Pt complains of progressively worsening exertional shortness of breath started June 15, denies orthpnea and PND. Pt also noted abdominal bloating BNP 638, troponin <0.020 Chest x-ray: Moderate enlargement cardiac contour, mild vascular congestion EKG: Sinus tachycardia with rate of [address] abdomen/pelvis: Cirrhosis, 8 mm posterior right lobe liver lesion, mild ascites, anasarca, 12 mm fat-containing umbilical hernia ABG on admission : pH 7.30, CO2 61, pO2 96, HCO3 30, O2 sat 96% Echo done on 07/24/24 Right heart failure most likely secondary to pulmonary HTN based on the echo findings, likely due to ALLI due to obesity NYHA class ll Plan: -O2 support PRN -Continue Bipap HS -Pending trilogy machine -Daily weights, strict I&Os, fluid restriction to 1500cc daily -Lasix 40mg PO Qday, Farxiga 10mg Qday, spironolactone 25mg daily and Amlodipine 10mg daily -Consulted Cardiology, appreciate recommendations #Coccidioidomycosis- ruled out -Cocci IgM is positive, UCD confirmatory test is negative -Pt works in the [employer] -Discontinue flucanazole 400mg Qday #Left foot pain- resolved -Pt is complaining of new onset of severe left foot pain and tenderness. Limited range of motion on physical exam -Xray of left foot shows osteoarthritis pattern -Pain meds PRN #Cirrhosis #Ascites, mild #Liver lesion, right lobe #Alcohol use disorder -CT abdomen/pelvis: Cirrhosis, 8 mm posterior right lobe liver lesion, mild ascites, anasarca, 8 mm posterior right lobe liver lesion -Pt endorses to drinking alcohol daily -AST and ALT with in normal limits -Child Crespo score: 7, class B Indication for transplant evaluation, Abdominal surgery lindy-operative mortality: 30% -Pt will need outpatient follow up and referral to cabinet assembler -Pt is advised on complete abstinence from alcohol #Umbilical hernia -12mm fat-containing umbilical hernia -Pt denies abdominal pain, asymptomatic -Will need outpatient follow up Health Maintenance Disposition:Med-surg, pending trilogy machine DVT Prophylaxis: Heparin 5000 units SC Q8 hrs GI Prophylaxis: not indicated Diet: cardiac diet with fluid restrictions of 1500cc Lines: Peripheral lines Code status: Full Assessment and plan discussed with my attending physician Dr. Magno Roth (PGY-1)- Internal medicine resident Attending Provider Attestation/Addendum I have discussed and was present for the essential components of the history, physical examination, diagnosis, and treatment plan with the resident. I agree with the patient's care as documented by the resident and amended herein by me. Hank Kiran DO. Although this document has been carefully reviewed, there may still be some phonetic and other typographical errors. These errors are purely grammatical due to imperfections in the software program and should not be construed in any way to compromise the substance of the patient's medical care during this visit.
[2024-08-01] VITALS (14 sets, daily range): BP systolic 114–136; BP diastolic 76–95; PULSE 80–102; RESP 16–19; TEMP 36.1–36.4; O2SAT 91–98; BMI 30.9
[2024-08-01 05:42] LABS: Basophils % (Auto) 1 % (0-2.5); Eosinophils # (Auto) 0.3 Thou/mm3 (0.0-0.5); Eosinophils % (Auto) 3 % (0-10); Hematocrit 47.7 % (41.0-53.0); Hemoglobin 15.4 g/dL (13.5-16.0); Immature Granulocytes % (Auto) 0 % (0-0); Immature Granulocytes Auto 0.02 Thou/mm3 (0.00-0.00); Lymphocytes # (Auto) 1.4 Thou/mm3 (1.0-4.8); Lymphocytes % (Auto) 18 % (10-50); Mean Corpuscular HGB Conc 32.3 g/dl (31.0-37.0); Mean Corpuscular Hemoglobin 29.3 pg (25.0-35.0); Mean Corpuscular Volume 91 fL (80-100); Monocytes % (Auto) 12 % (0-12); Neutrophils # (Auto) 5.4 Thou/mm3 (1.8-7.7); Neutrophils % (Auto) 67 % (37-80); Nucleated Red Blood Cell % 0 /100 WBC (0); Platelet Count 264 Thou/mm3 (140-440); RDW Standard Deviation 52.9 fL (35.1-43.9); Red Blood Count 5.26 Miln/mm3 (4.50-5.90); White Blood Count 8.1 Thou/mm3 (3.8-10.6)
[2024-08-01] MEDS: HEPARIN SOD INJ 5000 UNIT/ML VIAL SC ×3 (05:44→21:14)
[2024-08-01 06:08] LABS: Alanine Aminotransferase 52 U/L (10-49); Albumin, Serum 4.1 gm/dL (3.5-5.0); Albumin/Globulin Ratio 1.3 (1.2-2.2); Alkaline Phosphatase 86 U/L (46-116); Anion Gap 9 (7-16); Aspartate Amino Transferase 44 U/L (0-34); BUN/Creatinine Ratio 21 Ratio (12-20); Bilirubin,Total 0.5 mg/dL (0.3-1.2); Blood Urea Nitrogen 17 mg/dL (9-23); Calcium 9.3 mg/dL (8.3-10.6); Calcium (Corrected) 9.3 mg/dL (8.5-10.1); Carbon Dioxide 30.8 mMol/L (20.0-31.0); Chloride 95 mMol/L (98-107); Creatinine (Component) 0.8 mg/dL (0.6-1.3); Estimated Creatinine Clearance 138.4 mL/min (>60); Globulin 3.1 gm/dL (2.3-3.5); Glucose 101 mg/dL (74-106); Magnesium 2.1 mg/dL (1.6-2.6); Osmolality,Calculated 271 (275-295); Phosphorous 3.9 mg/dL (2.4-5.1); Sodium 135 mMol/L (136-145); Total Protein 7.2 gm/dL (5.7-8.2); eGFR > 60 See Note
[2024-08-01] MEDS: DAPAGLIFLOZIN PROPANEDIOL 5 MG TABLET 10 MG PO (09:06)
[2024-08-01] MEDS: amLODIPine BESYLATE 5 MG TABLET 10 MG PO (09:06)
[2024-08-01] MEDS: Furosemide 40 MG TABLET PO (09:06)
[2024-08-01] MEDS: SPIRONOLACTONE 25 MG TABLET PO (09:07)
--- NOTE | 2024-08-01 10:54 | XR_ITS ---
Examination: CT chest, without intravenous contrast. Sagittal and coronal 2-D reconstructions. Exam date and time: August 01, 2024 1110 hours Comparison July 23, 2024 INDICATIONS: Weakness shortness of breath this week CTDI:vol (mGy) 16.4 DLP: (mGycm) 568 Technique: Multiple 3.0 mm axial sections of the chest to been obtained. Bone and lung density settings are obtained. Sagittal and coronal 2-D reconstructions have been obtained. Low dose protocols were performed. One or more of the following dose reduction techniques were used; automated exposure control, adjustment of the mA and/or KV according to patient size, use of iterative reconstruction technique. Findings: No thoracic aortic aneurysm dilatation Enlargement main pulmonary artery segment 4.5 cm Minimal pericardial effusion Moderate enlargement cardiac contour Significant vascular congestion Subtle edema throughout the lung [place] No significant pleural disease Liver is irregular in contour Suspicious for gallstones Spleen not enlarged No pancreatic or adrenal mass The osseous structures are intact IMPRESSION: Mild CHF Pulmonary artery hypertension Recommend hepatobiliary sonography follow-up to confirm gallstones
--- NOTE | 2024-08-01 11:01 | PC.NURSE ---
pt transferred via wheelchair to ct on 4L NC oxygen pt stable aaox4.
[2024-08-01 11:20] LABS: B-Type Natriuretic Peptide 32 pg/mL (0-100)
[2024-08-01] MEDS: FUROSEMIDE INJ 10 MG/ML 4ML VIAL 40 MG IVP (11:51)
--- NOTE | 2024-08-01 12:28 | PC.SS ---
Follow up note: Trilogy Machine is still pending insurance approval. Pulmonology has been consulted. Pt is at 4-5 liters of O2. Pt is not medically ready for d/c, per Dr. Kiran.
--- NOTE | 2024-08-01 15:20 | PD.PUCONS ---
HPI Pulmonology Consult Data of Consult Requesting Physician: Brandon Kiran DO Primary Care Provider: Physician No Primary/Family Consult Narrative History of present illness: Patient is a 43 year old male with PMH of DM, hypertension, remote [place] disease, and alcoholic liver disease who presented with 1 month of gradual ansarca and now with dyspnea. New acute hypoxic respiratory failure with volume overload. Patient aggressively diuresed by cardiology and medicine. Unable to completely wean off oxygen and request assistance with ongoing management. Patient with minimal ascites and now with no peripheral edema. He reports he feels back to normal now. He denied any recent cough, fever, chills or night sweats. Fatigue with dyspnea noted. Patient with no historyof hemoptysis. No rash or joint pain/ swelling. He is unaware of any history of heart or lung disease in family. Former smoker, 20 pack years. He drinks about 1-2 beers daily for twenty years. No IVDA but marijuana occasionally, no history of methamphetamine/ amphetamine use. cc:: cc: Brandon Kiran DO Review of Systems Review of Systems Narrative Review of Systems: Pertinent review of systems was completed with pertinent findings included in the HPI above. Past Medical History Past Medical History Comments PMH COMMENT: PMH, PSH, Fam Hx, and Social Hx reviewed with pertinent findings included in HPI above. Meds Home Medications and Allergies Allergies Allergy/AdvReac Type Severity Reaction Status Date / Time No Known Allergies Allergy Unverified 07/24/24 08:07 Exam Vital Signs Temp Pulse Resp BP Pulse Ox O2 Del Method O2 Flow Rate 97.3 F 86 19 114/82 95 Nasal Cannula 3 08/01/24 20:00 08/01/24 23:55 08/01/24 20:00 08/01/24 20:00 08/01/24 20:00 08/01/24 20:00 08/01/24 18:45 FiO2 40 07/29/24 16:00 Narrative Exam GEN: NAD, able to lay flat for bedside USG, fell asleep during exam HEENT: Mallampati 3, large neck, no central cyanosis CVS: S1/S2+ RRR Pulm: Clear to auscultation Abd: distended, no fluid wave pulse, BS+ Ext: no cyanosis or clubbing Neuro: nonfocal on gross examination Psych: appropriate mood and affect Bedside USG: IVC >50% collapsible and < 2.1cm. No evidence of restrograde hepatic vein flow, normal monophasic portal vein and renal vein flow. Physical Exam Completion Physical Exam Complete?: Yes Results - [facility] Labs 08/04/24 04:28 08/04/24 04:28 Labs: Short CBC 08/01/24 Range/Units 04:32 WBC 8.1 (3.8-10.6) Thou/mm3 Hgb 15.4 (13.5-16.0) g/dL Hct 47.7 (41.0-53.0) % Plt Count 264 D (140-440) Thou/mm3 BMP 08/01/24 04:32 Sodium 135 L Potassium 4.0 Chloride 95 L Carbon Dioxide 30.8 BUN 17 Creatinine 0.8 Glucose 101 Calcium 9.3 Liver Function 08/01/24 Range/Units 04:32 Total Bilirubin 0.5 (0.3-1.2) mg/dL AST 44 H (0-34) U/L ALT 52 H (10-49) U/L Alkaline Phosphatase 86 (46-116) U/L Albumin 4.1 (3.5-5.0) gm/dL ABG Interpretation ABG results: 07/23/24 07/23/24 07/24/24 08:41 14:36 08:48 ABG pH 7.30 L 7.29 L 7.37 ABG pCO2 61 H 67 H 67 H ABG pO2 96 101 63 L D ABG HCO3 30 H 32 H 38 H ABG O2 Saturation 96 96 90 L ABG Base Excess 2 3 9 H 07/25/24 08:04 ABG pH 7.40 ABG pCO2 63 H ABG pO2 52 L* ABG HCO3 38 H ABG O2 Saturation 85 L ABG Base Excess 10 H Assessment & Plan Additional Plan Additional Plan: Patient is a 43 year old male who presented with decompensated right heart failure, unclear etiology of PH based on Echo during this admission. Improvement on serial Echo with diuresis and now net negative 20+L of fluid with appropriate change in weight. He appears euvolemic and VeXus ultrasound confirms no further need for aggressive fluid removal. Workup for PH proposed but most likely etiology will be related to OHS/ OA or liver disease. Treatment should include cessation of ETOH, counseled at bedside. Plan over weekend to repeat Echo with contrast to exclude intrapulmonary shunt from HPS , and d/w cardiology for possible RHC on Sunday but mild ascites on admission making portopulmonary HTN less likely as well. While inpatient maintain on NIPPV for ALLI/OHS overlap. Todays's CT after adequate diuresis reviewed, no emphysema/ ILD, there is mosaicism and mild hazziness in perivascular distribution- can be due to obesity as well as PVD. CTA negative on admission make Group IV less likely as well. During the day can wean O2 as tolerated. Check ambulatory saturation as well. I will remain available for any questions should they arise. Await additional testing for more treatment recommendations. Provider Notation Provider Notation: Although this document has been carefully reviewed, there may still be some phonetic and other typographical errors. These errors are purely grammatical due to imperfections in the software program and should not be construed in any way to compromise the substance of the patient's medical care during this visit. Thank you for the opportunity and privilege in assisting you with this patient's care and management.
--- NOTE | 2024-08-01 17:32 | ESPR_ITS ---
Documentation for date of: 08/01/24 Subjective Subjective Interval history: No acute overnight events reported. Patient seen and examined at bedside this morning. Patient endorses to resolution of shortness of breath denies any dizziness or palpitation. Patient continues to require 4 to 5 L of oxygen via nasal cannula, elevator constructor hydraulic is consulted for further recommendations will repeat CT and echo with bubble study. Bedside ultrasound showed collapsible IVC, Vexus score is a 0. Will continue p.o. diuretics. Patient is net -27 L during this admission and is down 21kg in weight. Per cardio patient may require right cardiac cath next week depending on echo. Vitals are stable, labs are reviewed. BNP is 32 Exam Vital Signs Temp Pulse Resp BP Pulse Ox O2 Del Method O2 Flow Rate 97.4 F 98 16 128/95 H 92 L Nasal Cannula 3 08/01/24 12:00 08/01/24 12:00 08/01/24 12:00 08/01/24 12:00 08/01/24 12:00 08/01/24 08:00 08/01/24 08:00 FiO2 40 07/29/24 16:00 Narrative Exam GENERAL: A&Ox3 , middle aged obese male, Awake saturating on 3L via NC, cooperative, Not in acute distress NEURO: no focal neurological deficits HEENT: Atraumatic, Normocephalic. mucous membranes moist. Eyes open, symmetrical, & clear HEART: Normal Heart Sounds LUNGS: Clear to auscultation with no wheezing or crackles. ABDOMEN: soft, non-distended, non-tender, bowel sounds heard, no guarding or rebound tenderness SKIN: No Rash or ecchymoses EXTREMITIES: no edema, tenderness, able to move all 4 extremities, pedal pulses palpated Objective Labs 08/01/24 04:32 08/01/24 04:32 Labs: Laboratory Results - last 24 hr 08/01/24 04:32 WBC 8.1 RBC 5.26 Hgb 15.4 Hct 47.7 MCV 91 MCH 29.3 MCHC 32.3 RDW Std Deviation 52.9 H Plt Count 264 D Neut % (Auto) 67 Lymph % (Auto) 18 [place] % (Auto) 12 Eos % (Auto) 3 Baso % (Auto) 1 Neut # (Auto) 5.4 Lymph # (Auto) 1.4 [place] # (Auto) 1.0 H Eos # (Auto) 0.3 Baso # (Auto) 0.0 Immature Gran # (Auto) 0.02 H Absolute Nucleated RBC 0.00 Immature Gran % 0 Nucleated RBC % 0 Sodium 135 L Potassium 4.0 Chloride 95 L Carbon Dioxide 30.8 Anion Gap 9 BUN 17 Creatinine 0.8 Estim Creat Clear Calc 138.4 eGFR > 60 BUN/Creatinine Ratio 21 H Glucose 101 Calculated Osmolality 271 L Calcium 9.3 Corrected Calcium 9.3 Phosphorus 3.9 Magnesium 2.1 Total Bilirubin 0.5 AST 44 H ALT 52 H Alkaline Phosphatase 86 B-Natriuretic Peptide 32 Total Protein 7.2 Albumin 4.1 Globulin 3.1 Albumin/Globulin Ratio 1.3 ABG Interpretation ABG results: 07/23/24 07/23/24 07/24/24 08:41 14:36 08:48 ABG pH 7.30 L 7.29 L 7.37 ABG pCO2 61 H 67 H 67 H ABG pO2 96 101 63 L D ABG HCO3 30 H 32 H 38 H ABG O2 Saturation 96 96 90 L ABG Base Excess 2 3 9 H 07/25/24 08:04 ABG pH 7.40 ABG pCO2 63 H ABG pO2 52 L* ABG HCO3 38 H ABG O2 Saturation 85 L ABG Base Excess 10 H Quality Measures Quality Measures none Assessment & Plan Assessment Current Active Medications: Generic Name Dose Route Start Last Admin Trade Name Freq PRN Reason Stop Dose Admin Acetaminophen 650 mg 07/27/24 16:22 07/28/24 23:39 Acetaminophen 325 Mg Tablet PO 08/22/24 11:57 650 mg Q6H PRN Administration Fever >100.3 Albuterol/Ipratropium 3 ml 07/23/24 16:00 Albuterol/Ipratropium (Duoneb) Rt Unique 3 Ml Nebu INH 08/22/24 12:59 Q6HRRT PRN SHORTNESS OF BREATH OR WHEEZE Amlodipine Besylate 10 mg 07/28/24 09:00 08/01/24 09:06 Amlodipine Besylate 5 Mg Tablet PO 08/27/24 08:59 10 mg QDAY LIANG Administration Artificial Tears 0 drop 07/25/24 08:23 07/25/24 08:41 Artificial Tears 225 Drop/15 Ml Btl BOTH EYES 08/24/24 08:22 2 drops PRN PRN Administration TO KEEP EYES MOIST Dapagliflozin 10 mg 07/31/24 09:00 08/01/24 09:06 Dapagliflozin Propanediol 5 Mg Tablet PO 08/30/24 08:59 10 mg QAM LIANG Administration Furosemide 40 mg 07/31/24 09:00 08/01/24 09:06 Furosemide 40 Mg Tablet PO 08/30/24 08:59 40 mg QDAY LIANG Administration Heparin Sodium (Porcine) 5,000 unit 07/23/24 14:00 08/01/24 13:21 Heparin Sod Inj 5000 Unit/Ml Vial SC 08/06/24 13:59 5,000 unit Q8HR LIANG Administration Ondansetron HCl 4 mg 07/23/24 11:58 Ondansetron Inj 2 Mg/Ml Inj 2 Ml IVP 08/22/24 11:57 Q6H PRN NAUSEA OR VOMITING Protocol Spironolactone 25 mg 07/27/24 09:00 08/01/24 09:07 Spironolactone 25 Mg Tablet PO 08/26/24 08:59 25 mg QDAY LIANG Administration Plan Mr. Boudreaux is a 43 year old male with no known past medical history presented to the ED complaining of worsening shortness of breath. Pt is admitted for management of acute hypoxic hypercapnic respiratory failure secondary to CHF exacerbation requiring Bipap and IV diuretics. #Acute Hypoxic hypercapnic respiratory failure 2/2 to #Acute exacerbation of CHF, HFpEF EF 55-60% #Right heart failure #Pulmonary HTN, Moderate #ALLI #Anasarca Pt complains of progressively worsening exertional shortness of breath started June 15, denies orthpnea and PND. Pt also noted abdominal bloating BNP 638, troponin <0.020 Chest x-ray: Moderate enlargement cardiac contour, mild vascular congestion EKG: Sinus tachycardia with rate of [address] abdomen/pelvis: Cirrhosis, 8 mm posterior right lobe liver lesion, mild ascites, anasarca, 12 mm fat-containing umbilical hernia ABG on admission : pH 7.30, CO2 61, pO2 96, HCO3 30, O2 sat 96% Echo done on 07/24/24 Right heart failure most likely secondary to pulmonary HTN based on the echo findings, likely due to ALLI due to obesity NYHA class ll Patient is net -27 L during this admission and is down 21kg in weight. Bedside ultrasound showed collapsible IVC, Vexus score is a 0 Plan: -O2 support PRN -Continue Bipap HS -Pending trilogy machine -Daily weights, strict I&Os, fluid restriction to 1500cc daily -Lasix 40mg PO Qday, Farxiga 10mg Qday, spironolactone 25mg daily and Amlodipine 10mg daily -Consulted Cardiology, appreciate recommendations #Coccidioidomycosis- ruled out -Cocci IgM is positive, UCD confirmatory test is negative -Pt works in the [employer] -Discontinue flucanazole 400mg Qday #Left foot pain- resolved -Pt is complaining of new onset of severe left foot pain and tenderness. Limited range of motion on physical exam -Xray of left foot shows osteoarthritis pattern -Pain meds PRN #Cirrhosis #Ascites, mild #Liver lesion, right lobe #Alcohol use disorder -CT abdomen/pelvis: Cirrhosis, 8 mm posterior right lobe liver lesion, mild ascites, anasarca, 8 mm posterior right lobe liver lesion -Pt endorses to drinking alcohol daily -AST and ALT with in normal limits -Child Crespo score: 7, class B Indication for transplant evaluation, Abdominal surgery lindy-operative mortality: 30% -Pt will need outpatient follow up and referral to snowmobile mechanic -Pt is advised on complete abstinence from alcohol #Umbilical hernia -12mm fat-containing umbilical hernia -Pt denies abdominal pain, asymptomatic -Will need outpatient follow up Health Maintenance Disposition:Med-surg, pending trilogy machine DVT Prophylaxis: Heparin 5000 units SC Q8 hrs GI Prophylaxis: not indicated Diet: cardiac diet with fluid restrictions of 1500cc Lines: Peripheral lines Code status: Full Assessment and plan discussed with my attending physician Dr. Mango Roth (PGY-1)- Internal medicine resident Attending Provider Attestation/Addendum I have discussed and was present for the essential components of the history, physical examination, diagnosis, and treatment plan with the resident. I agree with the patient's care as documented by the resident and amended herein by me. Hank Kiran DO. Although this document has been carefully reviewed, there may still be some phonetic and other typographical errors. These errors are purely grammatical due to imperfections in the software program and should not be construed in any way to compromise the substance of the patient's medical care during this visit.
[2024-08-02] VITALS (10 sets, daily range): BP systolic 111–134; BP diastolic 73–95; PULSE 64–110; RESP 18–20; TEMP 36.1–36.2; O2SAT 92–95; BMI 30.9
[2024-08-02] MEDS: HEPARIN SOD INJ 5000 UNIT/ML VIAL SC ×2 (05:24→14:07)
[2024-08-02] MEDS: Furosemide 40 MG TABLET PO (08:39)
[2024-08-02] MEDS: amLODIPine BESYLATE 5 MG TABLET 10 MG PO (08:39)
[2024-08-02] MEDS: SPIRONOLACTONE 25 MG TABLET PO (08:39)
[2024-08-02] MEDS: DAPAGLIFLOZIN PROPANEDIOL 5 MG TABLET 10 MG PO (08:40)
--- NOTE | 2024-08-02 12:10 | PD.RESPRO ---
Documentation for date of: 08/02/24 Subjective Subjective Interval history: No acute overnight events reported. Patient seen and examined at bedside this morning. Patient continues to report improvement in his shortness of breath. Patient is currently saturating 93% on 3 L of oxygen via nasal cannula. Vitals are stable with blood pressure 115/86, patient is net -2100 with total urine output of 4300 in the past 24 hours. As per cardiology recommendation patient may undergo right cardiac cath tomorrow. Echo with bubble study is still pending. Will continue labs every third day as patient's labs during hospitalization have been an remarkable. Patient is also states he has been feeling a little weaker therefore will order physical therapy. Exam Vital Signs Temp Pulse Resp BP Pulse Ox O2 Del Method O2 Flow Rate 97.0 F 92 18 115/86 H 93 L Nasal Cannula 3 08/02/24 07:54 08/02/24 08:39 08/02/24 07:54 08/02/24 08:39 08/02/24 07:54 08/02/24 07:54 08/02/24 07:54 FiO2 40 07/29/24 16:00 Narrative Exam GENERAL: A&Ox3 , middle aged obese male, Awake saturating on 3L via NC, cooperative, Not in acute distress NEURO: no focal neurological deficits HEENT: Atraumatic, Normocephalic. mucous membranes moist. Eyes open, symmetrical, & clear HEART: Normal Heart Sounds LUNGS: Clear to auscultation with no wheezing or crackles. ABDOMEN: soft, non-distended, non-tender, bowel sounds heard, no guarding or rebound tenderness SKIN: No Rash or ecchymoses EXTREMITIES: no edema, tenderness, able to move all 4 extremities, pedal pulses palpated Objective Labs 08/01/24 04:32 08/01/24 04:32 ABG Interpretation ABG results: 07/23/24 07/23/24 07/24/24 08:41 14:36 08:48 ABG pH 7.30 L 7.29 L 7.37 ABG pCO2 61 H 67 H 67 H ABG pO2 96 101 63 L D ABG HCO3 30 H 32 H 38 H ABG O2 Saturation 96 96 90 L ABG Base Excess 2 3 9 H 07/25/24 08:04 ABG pH 7.40 ABG pCO2 63 H ABG pO2 52 L* ABG HCO3 38 H ABG O2 Saturation 85 L ABG Base Excess 10 H Quality Measures Quality Measures none Assessment & Plan Assessment Current Active Medications: Generic Name Dose Route Start Last Admin Trade Name Freq PRN Reason Stop Dose Admin Acetaminophen 650 mg 07/27/24 16:22 07/28/24 23:39 Acetaminophen 325 Mg Tablet PO 08/22/24 11:57 650 mg Q6H PRN Administration Fever >100.3 Albuterol/Ipratropium 3 ml 07/23/24 16:00 Albuterol/Ipratropium (Duoneb) Rt Unique 3 Ml Nebu INH 08/22/24 12:59 Q6HRRT PRN SHORTNESS OF BREATH OR WHEEZE Amlodipine Besylate 10 mg 07/28/24 09:00 08/02/24 08:39 Amlodipine Besylate 5 Mg Tablet PO 08/27/24 08:59 10 mg QDAY LIANG Administration Artificial Tears 0 drop 07/25/24 08:23 07/25/24 08:41 Artificial Tears 225 Drop/15 Ml Btl BOTH EYES 08/24/24 08:22 2 drops PRN PRN Administration TO KEEP EYES MOIST Dapagliflozin 10 mg 07/31/24 09:00 08/02/24 08:40 Dapagliflozin Propanediol 5 Mg Tablet PO 08/30/24 08:59 10 mg QAM LIANG Administration Furosemide 40 mg 07/31/24 09:00 08/02/24 08:39 Furosemide 40 Mg Tablet PO 08/30/24 08:59 40 mg QDAY LIANG Administration Heparin Sodium (Porcine) 5,000 unit 07/23/24 14:00 08/02/24 05:24 Heparin Sod Inj 5000 Unit/Ml Vial SC 08/06/24 13:59 5,000 unit Q8HR LINAG Administration Ondansetron HCl 4 mg 07/23/24 11:58 Ondansetron Inj 2 Mg/Ml Inj 2 Ml IVP 08/22/24 11:57 Q6H PRN NAUSEA OR VOMITING Protocol Spironolactone 25 mg 07/27/24 09:00 08/02/24 08:39 Spironolactone 25 Mg Tablet PO 08/26/24 08:59 25 mg QDAY LIANG Administration Plan Mr. Boudreaux is a 43 year old male with no known past medical history presented to the ED complaining of worsening shortness of breath. Pt is admitted for management of acute hypoxic hypercapnic respiratory failure secondary to CHF exacerbation requiring Bipap and IV diuretics. #Acute Hypoxic hypercapnic respiratory failure 2/2 to #Acute exacerbation of CHF, HFpEF EF 55-60% #Right heart failure #Pulmonary HTN, Moderate #ALLI #Anasarca Pt complains of progressively worsening exertional shortness of breath started June 15, denies orthpnea and PND. Pt also noted abdominal bloating BNP 638, troponin <0.020 Chest x-ray: Moderate enlargement cardiac contour, mild vascular congestion EKG: Sinus tachycardia with rate of [address] abdomen/pelvis: Cirrhosis, 8 mm posterior right lobe liver lesion, mild ascites, anasarca, 12 mm fat-containing umbilical hernia ABG on admission : pH 7.30, CO2 61, pO2 96, HCO3 30, O2 sat 96% Echo done on 07/24/24 Right heart failure most likely secondary to pulmonary HTN based on the echo findings, likely due to ALLI due to obesity NYHA class ll Patient is net -27 L during this admission and is down 21kg in weight. Bedside ultrasound showed collapsible IVC, Vexus score is a 0 Plan: -O2 support PRN -Continue Bipap HS -Pending trilogy machine -Daily weights, strict I&Os, fluid restriction to 1500cc daily -Lasix 40mg PO Qday, Farxiga 10mg Qday, spironolactone 25mg daily and Amlodipine 10mg daily -Repeat echo with bubble study pending -Cardiology is considering right heart cath tomorrow, will place NPO orders -Consulted Cardiology, appreciate recommendations #Coccidioidomycosis- ruled out -Cocci IgM is positive, UCD confirmatory test is negative -Pt works in the [employer] -Discontinue flucanazole 400mg Qday #Left foot pain- resolved -Pt is complaining of new onset of severe left foot pain and tenderness. 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 Magno Roth (PGY-1)- Internal medicine resident Attending Provider Attestation/Addendum I have discussed and was present for the essential components of the history, physical examination, diagnosis, and treatment plan with the resident. I agree with the patient's care as documented by the resident and amended herein by me. Hank Kiran DO. Patient seen and evaluated this AM. No acute events overnight, vital signs stable, patient afebrile, no labs performed today as the patient's labs have been unremarkable in previous days. Patient on 3 L NC, SpO2 93%, I/O 2200/4300 mL last 24 hours. Per cardiology, will make the patient n.p.o. at midnight for possible right heart cath. We did order an echocardiogram with contrast per pulmonology recommendations to exclude intrapulmonary shunt from possible HPS. Results pending, will continue to monitor closely, appreciate all specialist recommendations. Although this document has been carefully reviewed, there may still be some phonetic and other typographical errors. These errors are purely grammatical due to imperfections in the software program and should not be construed in any way to compromise the substance of the patient's medical care during this visit.
--- NOTE | 2024-08-02 19:08 | PD.IMPROG ---
Documentation for date of: 08/02/24 Subjective Subjective Interval history: Patient seen and examined at the bedside. Patient shortness of breath overall is improved but he still requiring 4 to 5 L oxygen by nasal cannula. Patient did diurese well over the past 10 to 15 days and is net negative Patient does have obstructive sleep apnea given his morbid obesity but unable to obtain a CPAP machine for the patient as per primary team. With a total of 25 L and almost lost around 20 to 25 kg which since admission. Continue with Lasix 40 mg daily as well as melatonin 5 mg once daily. Pulmonary consult appreciated and repeat CT reviewed and no evidence of ILD or emphysema. Mild haziness in perivascular distribution mostly due to obesity and possible pickwickian syndrome. CTA was negative on admission. Repeat echo recommended by pulmonary team but unfortunately we do not have echocardiogram over the weekend. Discussed with pulmonary staff Dr. Silvestre and we have decided to pursue the right heart cardiac catheterization tomorrow on Sunday in the ICU to further evaluate his pulmonary hypertension and to measure accurate pulmonary artery pressures as well as a wedge pressure. Discussed that his benefits and alternatives of the procedure in detail with the patient including the risk of bleeding, heart attack and in detail. Patient agreeable and will keep the patient n.p.o. past midnight for the procedure in a.m. Rest of the vitals and labs appear to be stable to potassium greater than 4 measuring later than 2.0 at all times. Exam Vital Signs Temp Pulse Resp BP Pulse Ox O2 Del Method O2 Flow Rate 97.0 F 89 18 122/78 94 L Nasal Cannula 3 08/02/24 16:00 08/02/24 16:08/02/24 16:08/02/24 16:08/02/24 16:08/02/24 16:08/02/24 16:00 FiO2 40 07/29/24 16:00 Narrative Exam General Appearance: Alert & Oriented X3, well-nourished male who is lying in bed in no acute distress HEENT: Skull symmetrical and atraumatic. Conjunctivae pink and moist. Scleral icterus,improved. Pupils equal, round, reactive to light and accommodation (PERRL). External ear without lesion or discharge. Straight, nares patient, mucosa pink, no discharge. No thyroid nodule appreciated. No cervical lymphadenopathy. Cardio: Normal Rate and Rhythm with S1 and S2 heart sounds. No murmurs or extra heart sounds auscultated. No bruits on carotid auscultation. No peripheral edema or cyanosis. Lungs: Symmetric with good expansion. Chest and back non-tender. Bilateral air entry present without any major crackles Abdomen: Non-tender, Non-distended, Normal Reactive Bowel Sounds Neuro: Alert, cooperative, oriented to person, place, and time. Speech clear. CN grossly intact. Upper motor strength 5/5 and Lower motor strength 5/5. Sensation intact. Objective Labs 08/01/24 04:32 08/01/24 04:32 ABG Interpretation ABG results: 07/23/24 07/23/24 07/24/24 08:41 14:36 08:48 ABG pH 7.30 L 7.29 L 7.37 ABG pCO2 61 H 67 H 67 H ABG pO2 96 101 63 L D ABG HCO3 30 H 32 H 38 H ABG O2 Saturation 96 96 90 L ABG Base Excess 2 3 9 H 07/25/24 08:04 ABG pH 7.40 ABG pCO2 63 H ABG pO2 52 L* ABG HCO3 38 H ABG O2 Saturation 85 L ABG Base Excess 10 H Assessment & Plan A&P Narrative A 43-year-old male with a past medical history of morbid obesity, significant alcohol abuse drinking 8-12 beers per day, ex-smoker with at least [id number] smoking history, possible ALLI or pickwickian syndrome, not on any medications and does not follow-up with doctors regularly presented to the emergency department for worsening shortness of breath over the last month along with some leg swelling. Initial workup in the emergency department did show elevated blood pressure 165/127 mmHg and continues to be elevated, heart rate 107 bpm, saturation of only 90% on room air. CBC showed elevated hemoglobin at 16.9, normal platelets and WBC, CMP showed normal kidney function and normal electrolytes. BNP was elevated at 638.. Troponin was negative x 2. D-dimer elevated 987. CTA chest showed pulmonary hypertension but no evidence of PE and mild heart failure. Chest x-ray showed cardiomegaly with mild vascular congestion. EKG showed sinus tachycardia at 104 bpm with possible RVH and QTc was normal. CTA abdomen pelvis showed possible cirrhosis of the liver with 8 mm posterior right lower lobe lesion along with mild ascites and anasarca 12 mm umbilical hernia. Cardiology was consulted for abnormal echo. Assessments and plan: 1. Acute hypercapnic and hypoxic respiratory failure requiring mechanical ventilation with BiPAP 2. New onset CHF exacerbation secondary to HFpEF 1 diastolic dysfunction stage II and possible right heart failure 3. Moderate pulmonary hypertension 4. Cirrhosis of the liver with mild ascites and anasarca-new diagnosis 5. Fluid overload and anasarca 6. Moderate right pleural effusion 7. Right lower lobe lesion-18 mm 8. Morbid obesity 9. Significant alcohol abuse with more than 8-12 beers per day for many years 10. Ex-smoker with more than [id number] smoking history 11. Possible COPD-never diagnosed previously 12. Possible sleep apnea with possible pickwickian syndrome secondary to obesity-never tested 13. Uncontrolled hypertension-untreated 14. Prediabetes with A1c of 6.1 15. Polycythemia with hemoglobin of 16 mostly secondary to his smoking and obesity with chronic hypoxia Cardiology was consulted for abnormal echo withEcho (07/25/2024): Right atrium is mildly dilated. Right ventricle is markedly dilated Right ventricle dimension is equal to left ventricle dimension with moderate RV systolic dysfunction.Left ventricle is normal in dimension there is evidence of flattening of the septum D-shaped septum with paradoxical motion due to increased RV pressure and dimension. Overall left-sided function is preserved ejection fraction 50 to 55%. Mild tricuspid regurgitation. RV systolic pressure is normal 35 mmHg but based on the appearance RV pressure appears to be higher than the left There is evidence of a small Circumferencial Pericardial Effusion. No evidence of cardiac tamponade. Enlarged Main Pulmonary Artery Echo shows evidence of pulmonary hypertension with D-shaped septum in both systole and diastole including both pressure and volume overload. RVSP was only measured at 35 mmHg but patient at least has moderate PAH. His moderate PAH is mostly secondary to multifactorial etiology including his morbid obesity with possible sleep apnea and pickwickian syndrome along with possible COPD with more than 10 pack years of smoking history and diastolic dysfunction stage II. Possible group 2 and group 3 PAH. Patient is significantly volume overloaded as noted with mild to moderate congestion on the chest x-ray as well as a CT and peripheral edema. Recommend to continue aggressive diuresis with Lasix 40 mg IV once daily and uptitrate it based on the renal function. Also on purulent Bactrim given his anasarca, ascites at with cirrhosis. Strict input output Daily weights and 2 g sodium diet. Patient has acute hypercapnic and hypoxic respiratory failure as evidenced by the ABG on presentation with a PCO2 of around 68 mmHg. Patient does have underlying COPD given his history of smoking as well as a morbid obesity and will need further evaluation with the PFTs. Recommend to continue BiPAP and recommend also pulmonary consultation for the patient aggressive treatment of the COPD with short acting as well as long-acting inhalers. Further management as per primary team. Patient also has hypoxic compartment along with congestion as noted in the chest x-ray and recommend to continue with IV diuresis for now. Patient should also be tested for sleep apnea as outpatient and if ALLI present should be treated accordingly. He also has possible pickwickian syndrome. Patient does have significant history of alcohol abuse with 8-12 beers per day for many years-couple of decades. CT abdomen pelvis showed possible cirrhosis of liver along with anasarca and 18 mm right lower lobe lesion. MELD score is 7 and child class B. Workup as per primary and recommend GI consult for the patient. Started on p.o. spironolactone also. Patient has uncontrolled blood pressure since arrival and has no history of hypertension and does not take any meds. Patient is also fluid overloaded and continue with dialysis for now and if required patient to be started on amlodipine and then later can be started on ARB's. Patient also has significant hypoxia and is being tested for coccidiomycosis coccidiomycosis. Patient counseled at length regarding to completely quit his alcohol use and recommend to continue to quit smoking. Check U tox for other substance abuse. 07/26/2024-patient still continues to be short of breath as well as volume overloaded. Patient was also started on Lasix 20 mg IV once daily and recommend to increase to Lasix 40 mg IV once daily and also start spironolactone 25 mg once daily. Recommend to continue BiPAP given his hypercapnic respiratory failure along with possible underlying COPD exacerbation. Strict input output with daily weights and 2 g sodium diet. Renal failure continues to be stable with the diuresis. Recommend pulmonary consult for the patient with Dr. Silvestre as well as GI consult with Dr. Yao given his new diagnosis of cirrhosis as well as the 18 mm lesion in the right lobe of the liver. Unfortunately patient has been diagnosed of coccidiomycosis too and started on fluconazole for the primary team. 07/27/2024-patient is diuresed well with Lasix 40 mg IV once daily but was decreased to Lasix 20 mg IV once daily today. Renal function continues to be stable. Recommend to continue aggressive diuresis with Lasix 40 mg IV once daily. Spironolactone added to the regimen. Continue BiPAP at night now patient is on 62 oxygen via nasal cannula. His shortness of breath has improved in the leg swelling also improved. Patient continues to be hypotensive and did not able to start the patient on Coreg and recommend to stop it completely. Start the patient on amlodipine 5 mg once daily for blood pressure management and once diuresis is completed patient can be started on losartan. Strict input output Daily weights and 2 g sodium diet. Keep potassium greater than 4 magnesium greater than 2.0 to. 08/02/2024: Patient shortness of breath overall is improved but he still requiring 4 to 5 L oxygen by nasal cannula. Patient did diurese well over the past 10 to 15 days and is net negative Patient does have obstructive sleep apnea given his morbid obesity but unable to obtain a CPAP machine for the patient as per primary team. With a total of 25 L and almost lost around 20 to 25 kg which since admission. Continue with Lasix 40 mg daily as well as melatonin 5 mg once daily. Pulmonary consult appreciated and repeat CT reviewed and no evidence of ILD or emphysema. Mild haziness in perivascular distribution mostly due to obesity and possible pickwickian syndrome. CTA was negative on admission. Repeat echo recommended by pulmonary team but unfortunately we do not have echocardiogram over the weekend. Discussed with pulmonary staff Dr. Silvestre and we have decided to pursue the right heart cardiac catheterization tomorrow on Sunday in the ICU to further evaluate his pulmonary hypertension and to measure accurate pulmonary artery pressures as well as a wedge pressure. Discussed that his benefits and alternatives of the procedure in detail with the patient including the risk of bleeding, heart attack and in detail. Patient agreeable and will keep the patient n.p.o. past midnight for the procedure in a.m. Rest of the vitals and labs appear to be stable to potassium greater than 4 measuring later than 2.0 at all times. Management of rest of the medical conditions as per primary team and other consultants. Thank you for the consult and allowing me to participate in the care of the patient. Cardiology will continue to follow. Marcus Trejo Anumandla M.D. Interventional Cardiology Time Spent With Patient Time: Total time spent is greater than 50% in coordination of care (as documented) at patient's floor/unit and/or counseling patient:
--- NOTE | 2024-08-02 21:31 | PC.NURSE ---
Patient to undergo cardiac cath tomorrow with Dr. Marcus Trejo. RN asked if Heparin SC should be held for the procedure and Dr. Raza said to hold it.
[2024-08-03] VITALS (72 sets, daily range): BP systolic 96–145; BP diastolic 70–110; PULSE 84–105; RESP 12–33; TEMP 35.7–37; O2SAT 83–99; BMI 29.1
--- NOTE | 2024-08-03 00:11 | EKG_ITS ---
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
--- NOTE | 2024-08-03 00:12 | PC.NURSE ---
Dr. Grullon notified of reactor service operator showing inverted T waves. Dr. Grullon will put an EKG order.
[2024-08-03 06:28] LABS: Basophils % (Auto) 0 % (0-2.5); Eosinophils # (Auto) 0.3 Thou/mm3 (0.0-0.5); Eosinophils % (Auto) 3 % (0-10); Hematocrit 52.2 % (41.0-53.0); Hemoglobin 16.7 g/dL (13.5-16.0); Immature Granulocytes % (Auto) 1 % (0-0); Immature Granulocytes Auto 0.05 Thou/mm3 (0.00-0.00); Lymphocytes # (Auto) 1.7 Thou/mm3 (1.0-4.8); Lymphocytes % (Auto) 21 % (10-50); Mean Corpuscular Hemoglobin 28.5 pg (25.0-35.0); Mean Corpuscular Volume 89 fL (80-100); Monocytes # (Auto) 0.9 Thou/mm3 (0.0-0.8); Monocytes % (Auto) 12 % (0-12); Neutrophils # (Auto) 5.1 Thou/mm3 (1.8-7.7); Neutrophils % (Auto) 64 % (37-80); Nucleated Red Blood Cell % 0 /100 WBC (0); Platelet Count 340 Thou/mm3 (140-440); RDW Standard Deviation 50.8 fL (35.1-43.9); Red Blood Count 5.85 Miln/mm3 (4.50-5.90)
[2024-08-03 07:08] LABS: Alanine Aminotransferase 56 U/L (10-49); Albumin, Serum 4.1 gm/dL (3.5-5.0); Albumin/Globulin Ratio 1.1 (1.2-2.2); Alkaline Phosphatase 94 U/L (46-116); Anion Gap 9 (7-16); Aspartate Amino Transferase 38 U/L (0-34); BUN/Creatinine Ratio 20 Ratio (12-20); Bilirubin,Total 0.6 mg/dL (0.3-1.2); Blood Urea Nitrogen 16 mg/dL (9-23); Calcium 9.4 mg/dL (8.3-10.6); Calcium (Corrected) 9.4 mg/dL (8.5-10.1); Carbon Dioxide 28.3 mMol/L (20.0-31.0); Chloride 99 mMol/L (98-107); Creatinine (Component) 0.8 mg/dL (0.6-1.3); Estimated Creatinine Clearance 134.5 mL/min (>60); Globulin 3.8 gm/dL (2.3-3.5); Glucose 90 mg/dL (74-106); Magnesium 2.2 mg/dL (1.6-2.6); Osmolality,Calculated 273 (275-295); Potassium 3.8 mMol/L (3.4-5.1); Sodium 136 mMol/L (136-145); Total Protein 7.9 gm/dL (5.7-8.2); eGFR > 60 See Note
[2024-08-03] MEDS: amLODIPine BESYLATE 5 MG TABLET 10 MG PO (08:39)
[2024-08-03] MEDS: Furosemide 40 MG TABLET PO (08:40)
[2024-08-03] MEDS: SPIRONOLACTONE 25 MG TABLET PO (08:40)
[2024-08-03] MEDS: DAPAGLIFLOZIN PROPANEDIOL 5 MG TABLET 10 MG PO (08:41)
--- NOTE | 2024-08-03 08:47 | PD.RESCONSUL ---
HPI Data of Consult Consult date: 08/02/24 Requesting Physician: Brandon Kiran DO Admitting Provider: Francios Carrizales MD Attending Provider: Jaspal Silvestre MD Primary Care Provider: Physician No Primary/Family Consult Narrative History of present illness: Chief complaint: Pulmonary consult re: possible pickwickian syndrome HPI: Patient shortness of breath overall is improved but he still requiring 4 to 5 L oxygen by nasal cannula. Patient did diurese well over the past 10 to 15 days and is net negative Patient does have obstructive sleep apnea given his morbid obesity but unable to obtain a CPAP machine for the patient as per primary team. With a total of 25 L and almost lost around 20 to 25 kg which since admission. Continue with Lasix 40 mg daily as well as melatonin 5 mg once daily. Repeat CT reviewed and no evidence of ILD or emphysema. Mild haziness in perivascular distribution mostly due to obesity and possible pickwickian syndrome. CTA was negative on admission. Repeat echo recommended by pulmonary team but unfortunately we do not have echocardiogram over the weekend. Discussed with pulmonary staff Dr. Silvestre and we have decided to pursue the right heart cardiac catheterization tomorrow on Sunday in the ICU to further evaluate his pulmonary hypertension and to measure accurate pulmonary artery pressures as well as a wedge pressure. Discussed that his benefits and alternatives of the procedure in detail with the patient including the risk of bleeding, heart attack and in detail. Patient agreeable and will keep the patient n.p.o. past midnight for the procedure in a.m. Rest of the vitals and labs appear to be stable to potassium greater than 4 measuring later than 2.0 at all times. Allergies: NKFDA cc:: cc: Brandon Kiran DO Exam Vital Signs Temp Pulse Resp BP Pulse Ox O2 Del Method O2 Flow Rate 97.5 F 93 22 H 116/93 H 95 Nasal Cannula 4 08/03/24 07:43 08/03/24 08:40 08/03/24 07:43 08/03/24 08:40 08/03/24 07:43 08/03/24 07:43 08/03/24 07:43 FiO2 40 07/29/24 16:00 Results Labs 08/03/24 04:11 08/03/24 04:11 Labs: Short CBC 08/03/24 Range/Units 04:11 WBC 8.0 (3.8-10.6) Thou/mm3 Hgb 16.7 H (13.5-16.0) g/dL Hct 52.2 (41.0-53.0) % Plt Count 340 D (140-440) Thou/mm3 BMP 08/03/24 04:11 Sodium 136 Potassium 3.8 Chloride 99 Carbon Dioxide 28.3 BUN 16 Creatinine 0.8 Glucose 90 Calcium 9.4 Liver Function 08/03/24 Range/Units 04:11 Total Bilirubin 0.6 (0.3-1.2) mg/dL AST 38 H (0-34) U/L ALT 56 H (10-49) U/L Alkaline Phosphatase 94 (46-116) U/L Albumin 4.1 (3.5-5.0) gm/dL ABG Interpretation ABG results: 07/23/24 07/23/24 07/24/24 08:41 14:36 08:48 ABG pH 7.30 L 7.29 L 7.37 ABG pCO2 61 H 67 H 67 H ABG pO2 96 101 63 L D ABG HCO3 30 H 32 H 38 H ABG O2 Saturation 96 96 90 L ABG Base Excess 2 3 9 H 07/25/24 08:04 ABG pH 7.40 ABG pCO2 63 H ABG pO2 52 L* ABG HCO3 38 H ABG O2 Saturation 85 L ABG Base Excess 10 H Quality Measures Quality Measures none Medications Home Medications and Allergies Home Medications ?Medication ?Instructions ?Recorded ?Confirmed ?Type No Known Home Medications 07/23/24 07/23/24 History Allergies Allergy/AdvReac Type Severity Reaction Status Date / Time No Known Allergies Allergy Unverified 07/24/24 08:07 Visit Medications Acetaminophen (Acetaminophen 325 Mg Tablet) 650 mg PO Q6H PRN PRN Reason: Fever >100.3 Stop: 08/22/24 11:57 Last Admin: 07/28/24 23:39 Dose: 650 mg Albuterol/Ipratropium (Albuterol/Ipratropium (Duoneb) Rt Unique 3 Ml Nebu) 3 ml INH Q6HRRT PRN PRN Reason: SHORTNESS OF BREATH OR WHEEZE Stop: 08/22/24 12:59 Amlodipine Besylate (Amlodipine Besylate 5 Mg Tablet) 10 mg PO QDAY LIANG Stop: 08/27/24 08:59 Last Admin: 08/03/24 08:39 Dose: 10 mg Artificial Tears (Artificial Tears 225 Drop/15 Ml Btl) 0 drop BOTH EYES PRN PRN PRN Reason: TO KEEP EYES MOIST Stop: 08/24/24 08:22 Last Admin: 07/25/24 08:41 Dose: 2 drops Dapagliflozin (Dapagliflozin Propanediol 5 Mg Tablet) 10 mg PO QAM [facility] Stop: 08/30/24 08:59 Last Admin: 08/03/24 08:41 Dose: 10 mg Furosemide (Furosemide 40 Mg Tablet) 40 mg PO QDAY [facility] Stop: 08/30/24 08:59 Last Admin: 08/03/24 08:40 Dose: 40 mg Heparin Sodium (Porcine) (Heparin Sod Inj 5000 Unit/Ml Vial) 5,000 unit SC Q8HR [facility] Stop: 08/06/24 13:59 Last Admin: 08/03/24 05:00 Dose: Not Given Ondansetron HCl (Ondansetron Inj 2 Mg/Ml Inj 2 Ml) 4 mg IVP Q6H PRN; Protocol PRN Reason: NAUSEA OR VOMITING Stop: 08/22/24 11:57 Spironolactone (Spironolactone 25 Mg Tablet) 25 mg PO QDAY [facility] Stop: 08/26/24 08:59 Last Admin: 08/03/24 08:40 Dose: 25 mg Discontinued Medications Acetaminophen (Acetaminophen 325 Mg Tablet) 650 mg PO Q6H PRN PRN Reason: Fever >101.5 Stop: 08/22/24 11:57 Acetaminophen (Acetaminophen 325 Mg Tablet) 650 mg PO Q6H PRN PRN Reason: Fever >100.3 Stop: 08/22/24 11:57 Last Admin: 07/26/24 19:07 Dose: 650 mg Acetazolamide (Acetazolamide 250 Mg Tablet) 500 mg PO X1 ONE Stop: 07/24/24 08:05 Last Admin: 07/24/24 08:37 Dose: 500 mg Albuterol/Ipratropium (Albuterol/Ipratropium (Duoneb) Rt Unique 3 Ml Nebu) 3 ml INH X1 ONE Stop: 07/23/24 07:57 Last Admin: 07/23/24 08:33 Dose: 3 ml Albuterol/Ipratropium (Albuterol/Ipratropium (Duoneb) Rt Unique 3 Ml Nebu) 3 ml INH Q6HRRT [facility] Stop: 08/22/24 12:59 Last Admin: 07/23/24 12:30 Dose: 3 ml Carvedilol (Carvedilol 3.125 Mg Tablet) 6.25 mg PO BIDWM [facility] Stop: 08/26/24 09:29 Last Admin: 07/27/24 10:29 Dose: 6.25 mg Clonidine (Clonidine Hcl 0.1 Mg Tablet) 0.2 mg PO X1 ONE Stop: 07/23/24 07:59 Last Admin: 07/23/24 08:34 Dose: 0.2 mg Dapagliflozin (Dapagliflozin Propanediol 5 Mg Tablet) 5 mg PO QAM [facility] Stop: 08/29/24 10:14 Last Admin: 07/30/24 11:31 Dose: 5 mg Dapagliflozin (Dapagliflozin Propanediol 5 Mg Tablet) 5 mg PO X1 ONE Stop: 07/30/24 13:37 Last Admin: 07/30/24 14:40 Dose: 5 mg Fluconazole (Fluconazole 100 Mg Tablet) 400 mg PO QDAY [facility] Stop: 07/30/24 13:59 Last Admin: 07/29/24 09:47 Dose: 400 mg Furosemide (Furosemide Inj 10 Mg/Ml 4ml Vial) 40 mg IVP X1 ONE Stop: 07/23/24 10:00 Last Admin: 07/23/24 10:35 Dose: 40 mg Furosemide (Furosemide Inj 10 Mg/Ml 4ml Vial) 40 mg IVP X1 ONE Stop: 07/23/24 14:01 Last Admin: 07/23/24 14:48 Dose: 40 mg Furosemide (Furosemide Inj 10 Mg/Ml 4ml Vial) 40 mg IVP BID [facility] Stop: 08/23/24 08:59 Last Admin: 07/24/24 08:21 Dose: 40 mg Furosemide (Furosemide Inj 10 Mg/Ml 4ml Vial) 40 mg IVP X1 ONE Stop: 07/23/24 21:01 Last Admin: 07/23/24 21:06 Dose: 40 mg Furosemide (Furosemide Inj 10 Mg/Ml 4ml Vial) 20 mg IVP BID [facility] Stop: 08/23/24 20:59 Last Admin: 07/25/24 08:40 Dose: 20 mg Furosemide (Furosemide Inj 10 Mg/Ml 4ml Vial) 20 mg IVP QDAY LIANG Stop: 08/25/24 08:59 Last Admin: 07/26/24 08:21 Dose: 20 mg Furosemide (Furosemide Inj 10 Mg/Ml Vial 2 Ml) 20 mg IVP QDAY LIANG Stop: 08/25/24 08:59 Last Admin: 07/28/24 08:32 Dose: 20 mg Furosemide (Furosemide Inj 10 Mg/Ml Vial 2 Ml) 20 mg IVP X1 ONE Stop: 07/27/24 20:32 Last Admin: 07/27/24 21:48 Dose: 20 mg Furosemide (Furosemide Inj 10 Mg/Ml 4ml Vial) 40 mg IVP QDAY [facility] Stop: 08/27/24 08:59 Last Admin: 07/30/24 08:14 Dose: 40 mg Furosemide (Furosemide Inj 10 Mg/Ml Vial 2 Ml) 20 mg IVP X1 ONE Stop: 07/28/24 09:01 Last Admin: 07/28/24 09:30 Dose: 20 mg Furosemide (Furosemide Inj 10 Mg/Ml 4ml Vial) 40 mg IVP X1 ONE Stop: 08/01/24 10:42 Last Admin: 08/01/24 11:51 Dose: 40 mg Sodium Chloride (Ns) 1,000 mls @ 999 mls/hr IV .Q1H1M ONE Stop: 07/23/24 08:56 Last Infusion: 07/23/24 09:53 Dose: Infused Magnesium Sulfate (Magnesium Sulfate Ivpb) 4 gm in 50 mls @ 12.5 mls/hr IV X1 ONE Stop: 07/25/24 13:05 Last Admin: 07/25/24 09:21 Dose: 12.5 mls/hr Potassium Chloride (Kcl Ivpb) 10 meq in 100 mls @ 100 mls/hr IV Q1H [facility] Stop: 07/25/24 13:45 Last Admin: 07/25/24 13:59 Dose: 100 mls/hr Ketorolac Tromethamine (Ketorolac Inj 30 Mg/Ml Vial) 30 mg IVP X1 ONE Stop: 07/27/24 04:25 Last Admin: 07/27/24 04:37 Dose: 30 mg Methylprednisolone Sodium Succinate (Methylprednisolone Sod Succ 62.5 Mg/Ml 2ml Vial) 125 mg IVP X1 ONE Stop: 07/23/24 07:57 Last Admin: 07/23/24 08:36 Dose: 125 mg Metoprolol Tartrate (Metoprolol Tartrate 25 Mg Tablet) 25 mg PO X1 ONE Stop: 07/23/24 07:59 Last Admin: 07/23/24 08:34 Dose: 25 mg Morphine Sulfate (Morphine Sulf Inj 10 Mg/Ml Vial) 2 mg IVP X1 ONE Stop: 07/23/24 10:00 Last Admin: 07/23/24 10:38 Dose: Not Given Morphine Sulfate (Morphine Sulf Inj 10 Mg/Ml Vial) 1 mg IVP X1 ONE Stop: 07/26/24 23:17 Last Admin: 07/26/24 23:24 Dose: 1 mg Morphine Sulfate (Morphine Sulf Inj 10 Mg/Ml Vial) 2 mg IVP Q6HR PRN PRN Reason: Pain 7-10 Stop: 08/01/24 16:19 Nitroglycerin (Nitroglycerin Oint 2% 1 Inch Packet) 1 inch TOP X1 ONE Stop: 07/23/24 10:00 Last Admin: 07/23/24 10:42 Dose: 1 inch Ondansetron HCl (Ondansetron Inj 2 Mg/Ml Inj 2 Ml) 4 mg IVP X1 ONE; Protocol Stop: 07/23/24 07:57 Last Admin: 07/23/24 10:37 Dose: Not Given Potassium Chloride (Potassium Chloride 20 Meq Tabcr) 20 meq PO X1 ONE Stop: 07/26/24 07:44 Last Admin: 07/26/24 08:21 Dose: 20 meq Potassium Phos/Sodium Phos (Naph,[facility] Mb[facility] 1 Packet (1.5 Gm)) 1 packet PO X1 ONE Stop: 07/27/24 07:31 Last Admin: 07/27/24 08:28 Dose: 1 packet
--- NOTE | 2024-08-03 08:50 | PD.RESPRO ---
Documentation for date of: 08/03/24 Subjective Subjective Interval history: Reason for consult: Pulmonary consult re: refractory hypoxia in the setting of possible PAH causing D shaped LV and pickwickian syndrome 2/2 ALLI HPI: Patient requiring 4 to 5 L oxygen by nasal cannula after diuresing net - 27 L over the past 10-15 days, and lost around 20-25 kg since admission. Patient also has obstructive sleep apnea given his morbid obesity but unable to obtain a CPAP machine for the patient as per primary team. 07/27 : ECHO Estimated EF at 55 to 60%. Mildly dilated RV but RV systolic function normal. RVSP moderately elevated at 55 to 60mmHg. Paradoxical septal motion noted. D-shaped septum in both systole and diastole indicating both RV pressure and volume overload. Mildly dilated RA. Mildly dilated IVC. Mild to moderate TR. Mild MR. Small pericardial effusion noted without any evidence of any cardiac tamponade 07/31 : Bedside ultrasound showed collapsible IVC, Vexus score is a 0. Will continue p.o. diuretics. Patient is net -27 L during this admission and is down 21kg in weight. 08/01: Repeat CT reviewed by Pulmonology and no evidence of ILD or emphysema. Mild haziness in perivascular distribution mostly due to obesity and possible pickwickian syndrome. CTA was negative on admission. 08/03 : Unable to obtain repeat echo unfortunately we do not have echocardiogram over the weekend. Cardiology to pursue the right heart cardiac catheterization today in the ICU to evaluate pulmonary hypertension and measure accurate pulmonary artery and wedge pressures. Patient n.p.o. since midnight for the procedure today. Pending repeat ECHO w/ bubble study. Primary team to follow up cardiology recommendations post-RHC Exam Vital Signs Temp Pulse Resp BP Pulse Ox O2 Del Method O2 Flow Rate 97.5 F 93 22 H 116/93 H 95 Nasal Cannula 4 08/03/24 07:43 08/03/24 08:40 08/03/24 07:43 08/03/24 08:40 08/03/24 07:43 08/03/24 07:43 08/03/24 07:43 FiO2 40 07/29/24 16:00 Narrative Exam Constitutional Alert, oriented x3 and comfortable. Obese HEENT Vision grossly intact, PERRL. Patent nares. Trachea midline. On 2L oxygen via NC Respiratory Chest normal on inspection and clear to auscultation bilaterally. Cardiovascular S1 and S2 audible, RRR. No murmurs or carotid bruit. No gross JVD. Abdominal Soft, distended, BS + ; non tender to palpation in all quadrants. Genitourinary No bladder tenderness, no flank pain. Normal to palpation. Musculoskeletal Extremities tone within normal limits. No LE edema. Neurological CN II - XII grossly intact. Extremity motor and sensation grossly intact. Skin Warm, dry and intact. CVI skin discoloration on LE. Psychiatric Patient has a good affect, is cooperative. Objective Labs 08/03/24 04:11 08/03/24 04:11 Labs: Laboratory Results - last 24 hr 08/03/24 04:11 WBC 8.0 RBC 5.85 Hgb 16.7 H Hct 52.2 MCV 89 MCH 28.5 MCHC 32.0 RDW Std Deviation 50.8 H Plt Count 340 D Neut % (Auto) 64 Lymph % (Auto) 21 Runnels % (Auto) 12 Eos % (Auto) 3 Baso % (Auto) 0 Neut # (Auto) 5.1 Lymph # (Auto) 1.7 Runnels # (Auto) 0.9 H Eos # (Auto) 0.3 Baso # (Auto) 0.0 Immature Gran # (Auto) 0.05 H Absolute Nucleated RBC 0.00 Immature Gran % 1 H Nucleated RBC % 0 Sodium 136 Potassium 3.8 Chloride 99 Carbon Dioxide 28.3 Anion Gap 9 BUN 16 Creatinine 0.8 Estim Creat Clear Calc 134.5 eGFR > 60 BUN/Creatinine Ratio 20 Glucose 90 Calculated Osmolality 273 L Calcium 9.4 Corrected Calcium 9.4 Magnesium 2.2 Total Bilirubin 0.6 AST 38 H ALT 56 H Alkaline Phosphatase 94 Total Protein 7.9 Albumin 4.1 Globulin 3.8 H Albumin/Globulin Ratio 1.1 L ABG Interpretation ABG results: 07/23/24 07/23/24 07/24/24 08:41 14:36 08:48 ABG pH 7.30 L 7.29 L 7.37 ABG pCO2 61 H 67 H 67 H ABG pO2 96 101 63 L D ABG HCO3 30 H 32 H 38 H ABG O2 Saturation 96 96 90 L ABG Base Excess 2 3 9 H 07/25/24 08:04 ABG pH 7.40 ABG pCO2 63 H ABG pO2 52 L* ABG HCO3 38 H ABG O2 Saturation 85 L ABG Base Excess 10 H Quality Measures Quality Measures none Assessment & Plan Assessment Current Active Medications: Generic Name Dose Route Start Last Admin Trade Name Freq PRN Reason Stop Dose Admin Acetaminophen 650 mg 07/27/24 16:22 07/28/24 23:39 Acetaminophen 325 Mg Tablet PO 08/22/24 11:57 650 mg Q6H PRN Administration Fever >100.3 Albuterol/Ipratropium 3 ml 07/23/24 16:00 Albuterol/Ipratropium (Duoneb) Rt Unique 3 Ml Nebu INH 08/22/24 12:59 Q6HRRT PRN SHORTNESS OF BREATH OR WHEEZE Amlodipine Besylate 10 mg 07/28/24 09:00 08/03/24 08:39 Amlodipine Besylate 5 Mg Tablet PO 08/27/24 08:59 10 mg QDAY LIANG Administration Artificial Tears 0 drop 07/25/24 08:23 07/25/24 08:41 Artificial Tears 225 Drop/15 Ml Btl BOTH EYES 08/24/24 08:22 2 drops PRN PRN Administration TO KEEP EYES MOIST Dapagliflozin 10 mg 07/31/24 09:00 08/03/24 08:41 Dapagliflozin Propanediol 5 Mg Tablet PO 08/30/24 08:59 10 mg QAM LIANG Administration Furosemide 40 mg 07/31/24 09:00 08/03/24 08:40 Furosemide 40 Mg Tablet PO 08/30/24 08:59 40 mg QDAY LIANG Administration Heparin Sodium (Porcine) 5,000 unit 07/23/24 14:00 08/03/24 05:00 Heparin Sod Inj 5000 Unit/Ml Vial SC 08/06/24 13:59 Not Given Q8HR LIANG Ondansetron HCl 4 mg 07/23/24 11:58 Ondansetron Inj 2 Mg/Ml Inj 2 Ml IVP 08/22/24 11:57 Q6H PRN NAUSEA OR VOMITING Protocol Spironolactone 25 mg 07/27/24 09:00 08/03/24 08:40 Spironolactone 25 Mg Tablet PO 08/26/24 08:59 25 mg QDAY LIANG Administration Plan Mr Kwan is a 43 year old Spnaish speaking male admitted for CHF exacerbation. He is s/p net - 27 L over the past 10-15 days, and lost around 20-25 kg since admission. Pulmonary consult re: refractory hypoxia in the setting of possible PAH causing D shaped septum and pickwickian syndrome 2/2 ALLI. NEURO Pickwickian Syndrome Alcohol use disorder Dx: - Significant alcohol abuse with more than 8-12 beers per day for many years. Not in active withdrawals at this time, CIWA <3 - sleep apnea with possible pickwickian syndrome secondary to obesity Rx: - Counseled to completely quit his alcohol use and to quit smoking. - Patient should also be tested for sleep apnea as outpatient and if ALLI present should be treated accordingly. 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 Mildly dilated RV but RV systolic function normal. RVSP moderately elevated at 55 to 60mmHg. Paradoxical septal motion noted. D-shaped septum in both systole and diastole indicating both RV pressure and volume overload. Mildly dilated RA. Mildly dilated IVC. Mild to moderate TR. Mild MR. Small pericardial effusion noted without any evidence of any cardiac tamponade - RHC on 08/03, [place] V[place]ctor catheter placed for RA, RV, PA and PCWP measurements to evaluate possible PAH. Findings: Right atrial pressure was 9/0 mmHg, with a mean of 2 mmHg. Right ventricle pressure was -42/0 Pulmonary artery pressure was -39/22 mmHg , with a mean of 29 mmHg. Pulmonary capillary wedge pressure was 9/2, with a mean of -5 mmHg. Rx: - Transitioned to Lasix 40mg daily PO - Continue Spirinolactone 25g daily - Continue Dapagliflozin 10mg daily - KCL 20mEq ordered for K 3.8. Keep K>4 and Mg >2 - Outpatient close follow up with Pulmonology and Cardiology advisable - Counseled on weight loss and medication compliance - Continue Amlodipine 10mg HS for HTN - Follow up repeat Echo with bubble PULM Moderate Pulmonary Artery Hypertension Obstructive Sleep Apnea Obesity Hypoventilation Dx: - Echo on 07/27: dilated RV but RV systolic function normal. RVSP elevated at 55-60mmHg. Paradoxical septal motion, D-shaped septum in both systole and diastole indicating both RV pressure and volume overload. - CTA was negative on admission. - Ex-smoker with more than [id number] smoking history. Possible COPD-never diagnosed - Repeat CT on 08/01 reviewed by Pulmonology and no evidence of ILD or emphysema. Mild haziness in perivascular distribution mostly due to obesity and possible pickwickian syndrome - DDx: mild ascites on admission making portopulmonary HTN less likely - RHC on 08/03 to evaluate PAH, findings as above - Follow up VBG showed oxygen sats 90% and 95% on x2 samples Rx: - Patient will benefit from PDE5 inhibitors, ERA antagonist or Prostacyclin therapy for treatement of PAH - Oxygen sats likely due to wedge samples. 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 - LFTs mildly elevated, INR and coag panel wnl - CT abdomen pelvis showed possible cirrhosis of liver along with anasarca and 18 mm right lower lobe lesion. - Bedside ultrasound on 07/27 showed collapsible IVC, Vexus score is a 0. Rx: - s/p Paracentesis, no recollection of fluid at this time on bedside POCUS - MELD score is 7 and child class B. Recommend GI consult for the patient. - Continue on p.o. spironolactone also. RENAL No active problems. HEME/ONC Hemoconcentration 2/2 chronic smoking Dx: Hb 15 -16 - Polycythemia with hemoglobin of 16 mostly secondary to his smoking and obesity with chronic hypoxia - >10 pack year chronic smoker - further concentration post heavy diuresis over the last 10 days ENDO Prediabetes - A1c 6.1% Overweight Dx: BMI 29 Rx: - Outpatient GLP 1 advisable - Patient is s/p >20kg weight loss with diuresis in this hospitalization - close follow up advised ID No active problems. ICU Health maintenance: Dispo: Admit to ICU for RHC on 08/03 Diet: Cardiac diet DVT ppx: Lovenox 40 SC qD GI ppx: Not indicated IV lines: 2 pIV Code status: FULL CODE Plan of care discussed with rod machine operator Dr Silvestre, Francois Carrizales MD PGY 2 This document was compiled using speech recognition software. Grammatical errors can be an occasional consequence of this system due to software limitations. Attending Provider Attestation/Addendum Patient seen and examined with the above resident, Francois Carrizales MD. I agree with the findings, assessment, and plan of care as documented except for any differences below. Patient brought to the ICU for RHC. Patient consented and agreed to investigation to further delineate need for pulmonary vasodilator therapy. Vexus yesterday at bedside confirmed IV <2.1 and normal hepatic vein and renal venous flow. Transitioning to PO diuretic regimen with new dry weight. RHC successful in determining elevated PA pressures. Unfortunately, PA blood gas suggests that analysis for use with Shad's could not be done as may have been at least partially wedged given matching stauraion to pulse oximetry at the time. Cardiac output is normal but unable to calculate PVR. Nonetheless he did not respond to oxygen with drop in PA pressure but cannot confirm if CO did increase at that time. He now has confirmed PH with normal RA and PCWP. Group III or group I. Favor group III with OHS/ ALLI. Group I form liver disease is possible but limited ascites points against this. Needs to abstain from ETOH. Weight loss. Nocturnal oxygen. D/W Dr. Castillo of cardiology, he will follow up with patient and reasses in 3 months for possible role of pulmonary vasodilator therapy. Repeat Echo tomorrow with contrast to exclude shunt in HPS but no platypnea-orthodeoxia, this is rare however. This will complete workup and the patient can de discharged thereafter. REcover in ICU and cane turn to [place]ley in AM base don bed availability.
--- NOTE | 2024-08-03 10:50 | XR_ITS ---
Examination: Fluoroscopy AP chest 2 views Date and time: August 03, 2004 1215 hrs. Indications: [place]-Víctor procedure under fluoroscopy today. Findings: 3 spot fluoroscopic chest films with catheter overlying the left pulmonary artery branches supplying fluoroscopy 3 minutes 26 seconds radiation dose 17.2 milligray Impression: Fluoroscopy as above
[2024-08-03 11:49] LABS: Base Excess, Venous 5 (-3-3); O2 Saturation, Venous 90 % (96-97); PCO2, Venous 49 mmHg (36-56); PO2, Venous 59 mmHg (15-58)
[2024-08-03 11:50] LABS: Base Excess, Venous 6 (-3-3); O2 Saturation, Venous 95 % (96-97); PCO2, Venous 48 mmHg (36-56); PO2, Venous 88 mmHg (15-58); pH, Venous 7.44 (7.33-7.66)
--- NOTE | 2024-08-03 12:01 | PD.RESPRO ---
Documentation for date of: 08/03/24 Subjective Subjective Interval history: No acute events overnight.?Patient seen and examined at bedside this AM, listening to 70s music aloud on his phone. He reports feeling well. Patient was saturating 95% on 4L O2.?Patient planned for right heart cath today. Labs and vitals were reviewed.?Hgb slightly high at 16.7, otherwise labs were normal. No further complaints at this time. Review of systems otherwise negative except what is mentioned above. Exam Vital Signs Temp Pulse Resp BP Pulse Ox O2 Del Method O2 Flow Rate 97.5 F 91 24 H 116/93 H 93 L Nasal Cannula 5 08/03/24 07:43 08/03/24 10:24 08/03/24 10:24 08/03/24 08:40 08/03/24 10:24 08/03/24 07:43 08/03/24 10:24 FiO2 40 07/29/24 16:00 Narrative Exam GENERAL: A&Ox3, middle aged obese male, awake saturating on 4L via NC, cooperative, not in acute distress NEURO: no focal neurological deficits HEENT: Atraumatic, Normocephalic. mucous membranes moist. Eyes open, symmetrical, & clear HEART: Normal Heart Sounds LUNGS: Clear to auscultation with no wheezing or crackles. ABDOMEN: soft, non-distended, non-tender, bowel sounds heard, no guarding or rebound tenderness SKIN: No Rash or ecchymoses EXTREMITIES: no edema, tenderness, able to move all 4 extremities, pedal pulses palpated Objective Labs 08/03/24 04:11 08/03/24 04:11 Labs: Laboratory Results - last 24 hr 08/03/24 04:11 WBC 8.0 RBC 5.85 Hgb 16.7 H Hct 52.2 MCV 89 MCH 28.5 MCHC 32.0 RDW Std Deviation 50.8 H Plt Count 340 D Neut % (Auto) 64 Lymph % (Auto) 21 [place] % (Auto) 12 Eos % (Auto) 3 Baso % (Auto) 0 Neut # (Auto) 5.1 Lymph # (Auto) 1.7 [place] # (Auto) 0.9 H Eos # (Auto) 0.3 Baso # (Auto) 0.0 Immature Gran # (Auto) 0.05 H Absolute Nucleated RBC 0.00 Immature Gran % 1 H Nucleated RBC % 0 Sodium 136 Potassium 3.8 Chloride 99 Carbon Dioxide 28.3 Anion Gap 9 BUN 16 Creatinine 0.8 Estim Creat Clear Calc 134.5 eGFR > 60 BUN/Creatinine Ratio 20 Glucose 90 Calculated Osmolality 273 L Calcium 9.4 Corrected Calcium 9.4 Magnesium 2.2 Total Bilirubin 0.6 AST 38 H ALT 56 H Alkaline Phosphatase 94 Total Protein 7.9 Albumin 4.1 Globulin 3.8 H Albumin/Globulin Ratio 1.1 L ABG Interpretation ABG results: 07/23/24 07/23/24 07/24/24 08:41 14:36 08:48 ABG pH 7.30 L 7.29 L 7.37 ABG pCO2 61 H 67 H 67 H ABG pO2 96 101 63 L D ABG HCO3 30 H 32 H 38 H ABG O2 Saturation 96 96 90 L ABG Base Excess 2 3 9 H 07/25/24 08:04 ABG pH 7.40 ABG pCO2 63 H ABG pO2 52 L* ABG HCO3 38 H ABG O2 Saturation 85 L ABG Base Excess 10 H Quality Measures Quality Measures none Assessment & Plan Assessment Current Active Medications: Generic Name Dose Route Start Last Admin Trade Name Freq PRN Reason Stop Dose Admin Acetaminophen 650 mg 07/27/24 16:22 07/28/24 23:39 Acetaminophen 325 Mg Tablet PO 08/22/24 11:57 650 mg Q6H PRN Administration Fever >100.3 Albuterol/Ipratropium 3 ml 07/23/24 16:00 Albuterol/Ipratropium (Duoneb) Rt Unique 3 Ml Nebu INH 08/22/24 12:59 Q6HRRT PRN SHORTNESS OF BREATH OR WHEEZE Amlodipine Besylate 10 mg 07/28/24 09:00 08/03/24 08:39 Amlodipine Besylate 5 Mg Tablet PO 08/27/24 08:59 10 mg QDAY LIANG Administration Artificial Tears 0 drop 07/25/24 08:23 07/25/24 08:41 Artificial Tears 225 Drop/15 Ml Btl BOTH EYES 08/24/24 08:22 2 drops PRN PRN Administration TO KEEP EYES MOIST Dapagliflozin 10 mg 07/31/24 09:00 08/03/24 08:41 Dapagliflozin Propanediol 5 Mg Tablet PO 08/30/24 08:59 10 mg QAM LIANG Administration Furosemide 40 mg 07/31/24 09:00 08/03/24 08:40 Furosemide 40 Mg Tablet PO 08/30/24 08:59 40 mg QDAY LIANG Administration Heparin Sodium (Porcine) 5,000 unit 07/23/24 14:00 08/03/24 05:00 Heparin Sod Inj 5000 Unit/Ml Vial SC 08/06/24 13:59 Not Given Q8HR LIANG Ondansetron HCl 4 mg 07/23/24 11:58 Ondansetron Inj 2 Mg/Ml Inj 2 Ml IVP 08/22/24 11:57 Q6H PRN NAUSEA OR VOMITING Protocol Spironolactone 25 mg 07/27/24 09:00 08/03/24 08:40 Spironolactone 25 Mg Tablet PO 08/26/24 08:59 25 mg QDAY LIANG Administration Plan Mr. Boudreaux is a 43 year old male with no known past medical history presented to the ED complaining of worsening shortness of breath. Pt is admitted for management of acute hypoxic hypercapnic respiratory failure secondary to CHF exacerbation requiring Bipap and IV diuretics. #Acute hypoxic hypercapnic respiratory failure 2/2 to #Acute exacerbation of CHF, HFpEF EF 55-60% #Right heart failure #Pulmonary HTN, Moderate #ALLI #Obesity hypoventilation syndrome #Anasarca - resolved Pt complains of progressively worsening exertional shortness of breath started June 15, denies orthpnea and PND. Pt also noted abdominal bloating BNP 638, troponin <0.020 Chest x-ray: Moderate enlargement cardiac contour, mild vascular congestion EKG: Sinus tachycardia with rate of [address] abdomen/pelvis: Cirrhosis, 8 mm posterior right lobe liver lesion, mild ascites, anasarca, 12 mm fat-containing umbilical hernia ABG on admission : pH 7.30, CO2 61, pO2 96, HCO3 30, O2 sat 96% Echo done on 07/24/24 Right heart failure most likely secondary to pulmonary HTN based on the echo findings, likely due to ALLI due to obesity NYHA class ll Patient is net -27 L during this admission and is down 21kg in weight. Bedside ultrasound showed collapsible IVC, Vexus score is a 0 Plan: -O2 support PRN -Continue Bipap HS -Pending trilogy machine -Daily weights, strict I&Os, fluid restriction to 1500 ml daily -Continue Lasix 40mg PO Qday, Farxiga 10mg Qday, spironolactone 25mg daily and Amlodipine 10mg daily -Repeat echo contrast enhanced with bubble study pending -Cardiology following, appreciate recommendations #Coccidioidomycosis - ruled out -Cocci IgM is positive, UCD confirmatory test is negative -Pt works in the [employer] -Discontinued flucanazole 400mg Qday #Left foot pain - resolved -Pt is complaining of new onset of severe left foot pain and tenderness. Limited range of motion on physical exam -Xray of left foot shows osteoarthritis pattern -Pain meds PRN #Cirrhosis #Ascites, mild #Liver lesion, right lobe #Alcohol use disorder -CT abdomen/pelvis: Cirrhosis, 8 mm posterior right lobe liver lesion, mild ascites, anasarca, 8 mm posterior right lobe liver lesion -Pt endorses to drinking alcohol daily -AST and ALT with in normal limits -Child Crespo score: 7, class B Indication for transplant evaluation, Abdominal surgery lindy-operative mortality: 30% -Pt will need outpatient follow up and referral to reading intervention teacher -Pt is advised on complete abstinence from alcohol #Umbilical hernia -12mm fat-containing umbilical hernia -Pt denies abdominal pain, asymptomatic -Will need outpatient follow up Health Maintenance Disposition: Med-surg, pending trilogy machine DVT Prophylaxis: Heparin 5000 units SC Q8 hrs GI Prophylaxis: not indicated Diet: cardiac diet with fluid restrictions of 1500cc Lines: Peripheral lines Code status: Full Patient plan of care was discussed with the attending physician, Dr. Kiran. Kandy Valenzuela, PGY-2 Attending Provider Attestation/Addendum I have discussed and was present for the essential components of the history, physical examination, diagnosis, and treatment plan with the resident. I agree with the patient's care as documented by the resident and amended herein by me. Hank Kiran, DO. Patient seen and evaluated this AM. Vital signs stable, patient afebrile overnight, still remained on 4 L O2 this morning, SpO2 95%, I/O 2230/1750 mL last 24 hours. Labs unremarkable. Patient being transferred to the ICU this morning for right heart cath will continue to follow-up with results and further cardiology recommendations. Although this document has been carefully reviewed, there may still be some phonetic and other typographical errors. These errors are purely grammatical due to imperfections in the software program and should not be construed in any way to compromise the substance of the patient's medical care during this visit.
--- NOTE | 2024-08-03 15:36 | ESOP_ITS ---
<Statement entered by Jaspal Silvestre MD - 08/04/24 01:37> Attending Attestation: I was present for entire procedure. Introducer sheath 8.5F placed using USG to identify the RIJ and seldinger technique. Weed Víctor catheter was flushed, balloon patency confirmed. Transducers attached. Using continuous waveform monitoring, we identified entry into the RA. Baloon was inflated and attempt to advance catheter to the PA on multiple occasions. With inability to pass the RV into the PA. Fluoroscopy was setup and Dr. Castillo was able to pass the catheter into the PA. Measurements of the PA pressure and PCWP confirmed. Mixed venous sample obtained on RA and after 100% FiO2 delivered via oxymask at 15L/min. No changes in PA pressure and PCWP remained low at 5. Patient with confirmed pulmonary hypertension, pre-capillary component. Unable to use VBG for CO calculation due to high saturation possibly related to inadvertent partial wedge during the procedure. Unable to calculate PVR. Patient tolerated procedure well with no immediate complications. Fluoroscopy confirmed no PTX. Weed Víctor catheter and introducer sheet with hemostasis achieved after compression. Minimal blood loss. Patient tolerated procedure well with no immediate complications. PROCEDURES: Procedure Date / Time 08/03/24 1536 Procedure Narrative Procedure Narrative: Weed-Víctor Catheter Placement Date: 08-03-2024 Time: 10:20 AM Indication: Hemodynamic monitoring/Intravenous access Brine Supervisor:Jorge Carrizales MD Attending: Jaspal Silvestre MD / Marcus Castillo MD Summary: A time-out was completed verifying correct patient, procedure, site, positioning, and special equipment if applicable. The patient was placed in a position appropriate for central line placement, patient?s right neck was prepped and draped in sterile fashion. US used to place a 8.5F introducer sheath using seldinger's technique. Weed Víctor catheter was flushed, balloon patency confirmed. The catheter was introduced to a distance of 20-25 cm. The balloon at the tip of the catheter was inflated. Pressure waveforms were continuously monitored to guide the catheter's advancement. Serial measurements of the right atrium, right ventricle, and pulmonary artery and pulmonary capillary wedge were taken. Multiple attempts to advance catheter to the PA, but unsuccessful. Fluoroscopy was setup by Cardiology and they were able to pass the catheter into the PA and pulmonary artery wedge pressure waveform was achieved, indicating the balloon had occluded a branch of the pulmonary artery. Mixed venous sample obtained on RA and after 100% FiO2 delivered via oxymask at 15L/min. No changes in PA pressure and PCWP remained low at 5. The balloon was then deflated, and the pulmonary artery pressure waveform was observed. During the floating p rocedure to position the catheter the position of the catheter tip was determined by continuous pressure monitoring via the distal port. Findings: Right atrial pressure was 9/0 mmHg, with a mean of 2 mmHg. Right ventricle pressure was -42/0 Pulmonary artery pressure was -39/22 mmHg , with a mean of 29 mmHg. Pulmonary capillary wedge pressure was 9/2, with a mean of -5 mmHg. Patient has confirmed pulmonary hypertension, pre-capillary component. We obtained PA sample, but unable to use VBG for CO calculation due to high saturation possibly related to inadvertent partial wedge during the procedure. Unable to calculate PVR. Heart rate was between 70-80 bpm during the procedure and blood pressure was 120/80 mmHg. Estimated blood loss: Minimal-less than 10 ml Specimens: None removed Compications: None. The patient tolerated the procedure well and there were no complications. Procedure performed under the supervision of attendings Dr Silvestre (Crit Care) and Dr Castillo (Cardio), - Francois Carrizales M.D. PGY2 Disclaimer: Minor errors in communications advisor may be present as this note was dictated using voice recognition software.
[2024-08-03] MEDS: HEPARIN SOD INJ 5000 UNIT/ML VIAL SC (15:47)
[2024-08-03] MEDS: POTASSIUM CHLORIDE 10% 20 MEQ/15 ML UDC PO (15:48)
--- NOTE | 2024-08-03 15:48 | ESPR_ITS ---
Documentation for date of: 08/03/24 Subjective Subjective Interval history: Patient seen and examined at the bedside. Patient shortness of breath overall is improved but he still requiring 4 to 5 L oxygen by nasal cannula. Patient did diurese well over the past 10 to 15 days and is net negative with a total of 28 L and almost lost around 23 kg which since admission. Pulmonary consult appreciated and repeat CT reviewed and no evidence of ILD or emphysema. Mild haziness in perivascular distribution mostly due to obesity and possible pickwickian syndrome. CTA was negative on admission. Repeat echo recommended by pulmonary team but unfortunately we do not have echocardiogram over the weekend. Discussed with pulmonary staff Dr. Silvestre and we have decided to pursue the right heart cardiac catheterization in the ICU to further evaluate his pulmonary hypertension and to measure accurate pulmonary artery pressures as well as a wedge pressure. Right heart cardiac catheterization performed on 08/03/2024 for the patient in the ICU with bedside fluoroscopy showed mildly elevated pulmonary artery pressures with a mean of 29 mmHg but patient appears to be adequately diuresed with a mean RA pressure of 2-3 mmHg and a mean PCW pressure of 5 mmHg. Unfortunately the saturations obtained were from the wedge rather than the PA and could not calculate the cardiac output and cardiac index accurately with desaturations on room air were greater than 90% in the with the 15 L high flow was greater than 95%. Patient should be discharged on Lasix 40 mg once daily along with spironolactone 25 mg once daily. Recommended to continue to follow-up with doctors and the need to lose weight and avoid any kind of alcohol abuse Rest of the vitals and labs appear to be stable to potassium greater than 4 measuring later than 2.0 at all times. Exam Vital Signs Temp Pulse Resp BP Pulse Ox O2 Del Method O2 Flow Rate 98.3 F 94 25 H 136/89 H 92 L Nasal Cannula 4 08/03/24 11:50 08/03/24 14:49 08/03/24 14:49 08/03/24 14:49 08/03/24 14:49 08/03/24 11:50 08/03/24 11:50 FiO2 40 07/29/24 16:00 Narrative Exam General Appearance: Alert & Oriented X3, well-nourished male who is lying in bed in no acute distress HEENT: Skull symmetrical and atraumatic. Conjunctivae pink and moist. Scleral icterus,improved. Pupils equal, round, reactive to light and accommodation (PERRL). External ear without lesion or discharge. Straight, nares patient, mucosa pink, no discharge. No thyroid nodule appreciated. No cervical lymphadenopathy. Cardio: Normal Rate and Rhythm with S1 and S2 heart sounds. No murmurs or extra heart sounds auscultated. No bruits on carotid auscultation. No peripheral edema or cyanosis. Lungs: Symmetric with good expansion. Chest and back non-tender. Bilateral air entry present without any major crackles Abdomen: Non-tender, Non-distended, Normal Reactive Bowel Sounds Neuro: Alert, cooperative, oriented to person, place, and time. Speech clear. CN grossly intact. Upper motor strength 5/5 and Lower motor strength 5/5. Sensation intact. Objective Labs 08/03/24 04:11 08/03/24 04:11 Labs: Laboratory Results - last 24 hr 08/03/24 08/03/24 08/03/24 04:11 11:30 11:35 WBC 8.0 RBC 5.85 Hgb 16.7 H Hct 52.2 MCV 89 MCH 28.5 MCHC 32.0 RDW Std Deviation 50.8 H Plt Count 340 D Neut % (Auto) 64 Lymph % (Auto) 21 [place]ill % (Auto) 12 Eos % (Auto) 3 Baso % (Auto) 0 Neut # (Auto) 5.1 Lymph # (Auto) 1.7 Estill # (Auto) 0.9 H Eos # (Auto) 0.3 Baso # (Auto) 0.0 Immature Gran # (Auto) 0.05 H Absolute Nucleated RBC 0.00 Immature Gran % 1 H Nucleated RBC % 0 VBG pH 7.40 7.44 VBG pCO2 49 48 VBG pO2 59 H 88 H D VBG O2 Sat (Rashi) 90 L 95 L VBG Base Excess 5 H 6 H Sodium 136 Potassium 3.8 Chloride 99 Carbon Dioxide 28.3 Anion Gap 9 BUN 16 Creatinine 0.8 Estim Creat Clear Calc 134.5 eGFR > 60 BUN/Creatinine Ratio 20 Glucose 90 Calculated Osmolality 273 L Calcium 9.4 Corrected Calcium 9.4 Magnesium 2.2 Total Bilirubin 0.6 AST 38 H ALT 56 H Alkaline Phosphatase 94 Total Protein 7.9 Albumin 4.1 Globulin 3.8 H Albumin/Globulin Ratio 1.1 L ABG Interpretation ABG results: 0607/23/24 07/24/24 08:41 14:36 08:48 ABG pH 7.30 L 7.29 L 7.37 ABG pCO2 61 H 67 H 67 H ABG pO2 96 101 63 L D ABG HCO3 30 H 32 H 38 H ABG O2 Saturation 96 96 90 L ABG Base Excess 2 3 9 H VBG pH VBG pCO2 VBG pO2 VBG Base Excess 07/25/24 08/03/24 08/03/24 08:04 11:30 11:35 ABG pH 7.40 ABG pCO2 63 H ABG pO2 52 L* ABG HCO3 38 H ABG O2 Saturation 85 L ABG Base Excess 10 H VBG pH 7.40 7.44 VBG pCO2 49 48 VBG pO2 59 H 88 H D VBG Base Excess 5 H 6 H Assessment & Plan A&P Narrative A 43-year-old male with a past medical history of morbid obesity, significant alcohol abuse drinking 8-12 beers per day, ex-smoker with at least [id number] smoking history, possible ALLI or pickwickian syndrome, not on any medications and does not follow-up with doctors regularly presented to the emergency department for worsening shortness of breath over the last month along with some leg swelling. Initial workup in the emergency department did show elevated blood pressure 165/127 mmHg and continues to be elevated, heart rate 107 bpm, saturation of only 90% on room air. CBC showed elevated hemoglobin at 16.9, normal platelets and WBC, CMP showed normal kidney function and normal electrolytes. BNP was elevated at 638.. Troponin was negative x 2. D-dimer elevated 987. CTA chest showed pulmonary hypertension but no evidence of PE and mild heart failure. Chest x-ray showed cardiomegaly with mild vascular congestion. EKG showed sinus tachycardia at 104 bpm with possible RVH and QTc was normal. CTA abdomen pelvis showed possible cirrhosis of the liver with 8 mm posterior right lower lobe lesion along with mild ascites and anasarca 12 mm umbilical hernia. Cardiology was consulted for abnormal echo. Assessments and plan: 1. Acute hypercapnic and hypoxic respiratory failure requiring mechanical ventilation with BiPAP 2. New onset CHF exacerbation secondary to HFpEF 1 diastolic dysfunction stage II and possible right heart failure 3. Moderate pulmonary hypertension 4. Cirrhosis of the liver with mild ascites and anasarca-new diagnosis 5. Fluid overload and anasarca 6. Moderate right pleural effusion 7. Right lower lobe lesion-18 mm 8. Morbid obesity 9. Significant alcohol abuse with more than 8-12 beers per day for many years 10. Ex-smoker with more than [id number] smoking history 11. Possible COPD-never diagnosed previously 12. Possible sleep apnea with possible pickwickian syndrome secondary to obesity-never tested 13. Uncontrolled hypertension-untreated 14. Prediabetes with A1c of 6.1 15. Polycythemia with hemoglobin of 16 mostly secondary to his smoking and obesity with chronic hypoxia Cardiology was consulted for abnormal echo withEcho (07/25/2024): Right atrium is mildly dilated. Right ventricle is markedly dilated Right ventricle dimension is equal to left ventricle dimension with moderate RV systolic dysfunction.Left ventricle is normal in dimension there is evidence of flattening of the septum D-shaped septum with paradoxical motion due to increased RV pressure and dimension. Overall left-sided function is preserved ejection fraction 50 to 55%. Mild tricuspid regurgitation. RV systolic pressure is normal 35 mmHg but based on the appearance RV pressure appears to be higher than the left There is evidence of a small Circumferencial Pericardial Effusion. No evidence of cardiac tamponade. Enlarged Main Pulmonary Artery Echo shows evidence of pulmonary hypertension with D-shaped septum in both systole and diastole including both pressure and volume overload. RVSP was only measured at 35 mmHg but patient at least has moderate PAH. His moderate PAH is mostly secondary to multifactorial etiology including his morbid obesity with possible sleep apnea and pickwickian syndrome along with possible COPD with more than 10 pack years of smoking history and diastolic dysfunction stage II. Possible group 2 and group 3 PAH. Patient is significantly volume overloaded as noted with mild to moderate congestion on the chest x-ray as well as a CT and peripheral edema. Recommend to continue aggressive diuresis with Lasix 40 mg IV once daily and uptitrate it based on the renal function. Also on purulent Bactrim given his anasarca, ascites at with cirrhosis. Strict input output Daily weights and 2 g sodium diet. Patient has acute hypercapnic and hypoxic respiratory failure as evidenced by the ABG on presentation with a PCO2 of around 68 mmHg. Patient does have underlying COPD given his history of smoking as well as a morbid obesity and will need further evaluation with the PFTs. Recommend to continue BiPAP and recommend also pulmonary consultation for the patient aggressive treatment of the COPD with short acting as well as long-acting inhalers. Further management as per primary team. Patient also has hypoxic compartment along with congestion as noted in the chest x-ray and recommend to continue with IV diuresis for now. Patient should also be tested for sleep apnea as outpatient and if ALLI present should be treated accordingly. He also has possible pickwickian syndrome. Patient does have significant history of alcohol abuse with 8-12 beers per day for many years-couple of decades. CT abdomen pelvis showed possible cirrhosis of liver along with anasarca and 18 mm right lower lobe lesion. MELD score is 7 and child class B. Workup as per primary and recommend GI consult for the patient. Started on p.o. spironolactone also. Patient has uncontrolled blood pressure since arrival and has no history of hypertension and does not take any meds. Patient is also fluid overloaded and continue with dialysis for now and if required patient to be started on amlodipine and then later can be started on ARB's. Patient also has significant hypoxia and is being tested for coccidiomycosis coccidiomycosis. Patient counseled at length regarding to completely quit his alcohol use and recommend to continue to quit smoking. Check U tox for other substance abuse. 07/26/2024-patient still continues to be short of breath as well as volume overloaded. Patient was also started on Lasix 20 mg IV once daily and recommend to increase to Lasix 40 mg IV once daily and also start spironolactone 25 mg once daily. Recommend to continue BiPAP given his hypercapnic respiratory failure along with possible underlying COPD exacerbation. Strict input output with daily weights and 2 g sodium diet. Renal failure continues to be stable with the diuresis. Recommend pulmonary consult for the patient with Dr. Silvestre as well as GI consult with Dr. Yao given his new diagnosis of cirrhosis as well as the 18 mm lesion in the right lobe of the liver. Unfortunately patient has been diagnosed of coccidiomycosis too and started on fluconazole for the primary team. 07/27/2024-patient is diuresed well with Lasix 40 mg IV once daily but was decreased to Lasix 20 mg IV once daily today. Renal function continues to be stable. Recommend to continue aggressive diuresis with Lasix 40 mg IV once daily. Spironolactone added to the regimen. Continue BiPAP at night now patient is on 62 oxygen via nasal cannula. His shortness of breath has improved in the leg swelling also improved. Patient continues to be hypotensive and did not able to start the patient on Coreg and recommend to stop it completely. Start the patient on amlodipine 5 mg once daily for blood pressure management and once diuresis is completed patient can be started on losartan. Strict input output Daily weights and 2 g sodium diet. Keep potassium greater than 4 magnesium greater than 2.0. 08/03/2024: Patient shortness of breath overall is improved but he still requiring 4 to 5 L oxygen by nasal cannula. Patient did diurese well over the past 10 to 15 days and is net negative with a total of 28 L and almost lost around 20 to 25 kg which since admission. Pulmonary consult appreciated and repeat CT reviewed and no evidence of ILD or emphysema. Mild haziness in perivascular distribution mostly due to obesity and possible pickwickian syndrome. CTA was negative on admission. Repeat echo recommended by pulmonary team but unfortunately we do not have echocardiogram over the weekend. Discussed with pulmonary staff Dr. Silvestre and we have decided to pursue the right heart cardiac catheterization in the ICU to further evaluate his pulmonary hypertension and to measure accurate pulmonary artery pressures as well as a wedge pressure. Right heart cardiac catheterization performed on 08/03/2024 for the patient in the ICU with bedside fluoroscopy showed mildly elevated pulmonary artery pressures with a mean of 29 mmHg but patient appears to be adequately diuresed with a mean RA pressure of 2-3 mmHg and a mean PCW pressure of 5 mmHg. Unfortunately the saturations obtained were from the wedge rather than the PA and could not calculate the cardiac output and cardiac index accurately with desaturations on room air were greater than 90% in the with the 15 L high flow was greater than 95%. Patient should be discharged on Lasix 40 mg once daily along with spironolactone 25 mg once daily. Recommended to continue to follow-up with doctors and the need to lose weight and avoid any kind of alcohol abuse Rest of the vitals and labs appear to be stable to potassium greater than 4 measuring later than 2.0 at all times. Management of rest of the medical conditions as per primary team and other consultants. Thank you for the consult and allowing me to participate in the care of the patient. Cardiology will continue to follow. Marcus Castillo M.D. Interventional Cardiology Time Spent With Patient Time: Total time spent is greater than 50% in coordination of care (as documented) at patient's floor/unit and/or counseling patient:
[2024-08-03 16:25] LABS: B-Type Natriuretic Peptide < 20 pg/mL (0-100)
[2024-08-03] MEDS: ENOXAPARIN SOD INJ 40 MG/0.4 ML SYRINGE SC (20:15)
[2024-08-04] VITALS (16 sets, daily range): BP systolic 114–175; BP diastolic 64–110; PULSE 82–100; RESP 14–27; TEMP 36.1–36.7; O2SAT 92–97
[2024-08-04] MEDS: LABETALOL INJ 5 MG/ML VIAL 20 ML 10 MG IVP (04:27)
[2024-08-04 05:35] LABS: Basophils # (Auto) 0.1 Thou/mm3 (0.0-0.2); Basophils % (Auto) 1 % (0-2.5); Eosinophils # (Auto) 0.3 Thou/mm3 (0.0-0.5); Eosinophils % (Auto) 3 % (0-10); Hematocrit 50.8 % (41.0-53.0); Hemoglobin 16.7 g/dL (13.5-16.0); Immature Granulocytes % (Auto) 0 % (0-0); Immature Granulocytes Auto 0.04 Thou/mm3 (0.00-0.00); Lymphocytes # (Auto) 1.5 Thou/mm3 (1.0-4.8); Lymphocytes % (Auto) 17 % (10-50); Mean Corpuscular HGB Conc 32.9 g/dl (31.0-37.0); Mean Corpuscular Volume 88 fL (80-100); Monocytes % (Auto) 11 % (0-12); Neutrophils # (Auto) 6.2 Thou/mm3 (1.8-7.7); Neutrophils % (Auto) 68 % (37-80); Nucleated Red Blood Cell % 0 /100 WBC (0); Platelet Count 310 Thou/mm3 (140-440); RDW Standard Deviation 50.9 fL (35.1-43.9); Red Blood Count 5.76 Miln/mm3 (4.50-5.90)
[2024-08-04 05:53] LABS: Alanine Aminotransferase 56 U/L (10-49); Alkaline Phosphatase 96 U/L (46-116); Anion Gap 5 (7-16); Aspartate Amino Transferase 41 U/L (0-34); BUN/Creatinine Ratio 15 Ratio (12-20); Bilirubin,Total 0.6 mg/dL (0.3-1.2); Blood Urea Nitrogen 15 mg/dL (9-23); Calcium 9.6 mg/dL (8.3-10.6); Calcium (Corrected) 9.6 mg/dL (8.5-10.1); Chloride 100 mMol/L (98-107); Estimated Creatinine Clearance 107.6 mL/min (>60); Glucose 101 mg/dL (74-106); Magnesium 2.2 mg/dL (1.6-2.6); Osmolality,Calculated 270 (275-295); Potassium 4.7 mMol/L (3.4-5.1); Sodium 135 mMol/L (136-145); eGFR > 60 See Note
[2024-08-04 06:47] LABS: ANA Pattern CYTOPLASMIC; ANA Pattern NUCLEAR, NUCLEOLAR; ANA Screen, IFA POSITIVE (NEGATIVE); ANA Titer 1:40 titer
[2024-08-04] MEDS: SPIRONOLACTONE 25 MG TABLET PO (08:47)
[2024-08-04] MEDS: DAPAGLIFLOZIN PROPANEDIOL 5 MG TABLET 10 MG PO (08:47)
[2024-08-04] MEDS: Furosemide 40 MG TABLET PO (08:48)
[2024-08-04] MEDS: ACETAMINOPHEN 325 MG TABLET 650 MG PO (08:49)
--- NOTE | 2024-08-04 12:02 | PD.RESDS ---
Planned Discharge Date 08/04/24 DS: Providers Provider Date of admission: 07/23/24 11:58 Primary care physician: Physician No Primary/Family Admitting Provider: Sara Barr MD Attending Provider on Admission: Brandon Kiran DO Consults: 07/23/24 09:58 Referral Respiratory Therapy Stat Comment: BiPAP 07/23/24 15:57 Referral Registered Dietitian Routine Comment: 07/25/24 10:16 Consult to Cardiology Urgent Comment: Pulmonary HTN, ECHO Findings Consulting Provider: Marcus Castillo 08/01/24 15:51 Consult to Pulmonology Routine Comment: Respiratory failure, PAH Consulting Provider: Jaspal Silvestre I 08/02/24 12:06 Referral Physical Therapy Routine Comment: Physician Instructions: Attending Provider on DC: Simone Roth MD Discharging Provider: Simone Roth MD DS: Diagnosis Problem List Completed Was Problem List Reviewed/Reconciled?: Yes Hospital Course Hospital Course Hospital course: Mr. Boudreaux is a 43 year old male with no known past medical history presented to [facility] ED complaining of worsening shortness of breath. Pt was admitted for management of acute hypoxic hypercapnic respiratory failure secondary to CHF exacerbation requiring Bipap and IV diuretics. Echocardiogram was done on 07/24/24 which showed HFpEF with ejection fraction of 55 to 60% with right heart failure, moderate pulmonary hypertension. Oil Transport Driver Dr. Castillo was consulted, patient was started on GDMT for HFpEF including Lasix 40 mg p.o. daily, Farxiga 10 mg daily, spironolactone 25 mg daily and amlodipine 10 mg daily which patient tolerated really well during hospitalization. However patient's oxygen requirement over hospitalization did not improve therefore supervisor instrument repair Dr. Silvestre was consulted. Patient's cocci IgG [facility] confirmatory test was negative. Bedside ultrasound done by ICU showed collapsible IVC with Vexus score of 0 after patient was net -27 L during hospitalization and had lost 21 KG in weight. Despite that patient's oxygen requirement did not improve. Patient underwent right cardiac cath on 08/03/[address] Mitchell which confirmed pulmonary hypertension and no stents were placed. Patient is cleared from cardiology to continue GDMT for HFpEF and follow-up closely outpatient with primary care or the [facility]. Patient is also strongly advised to maintain abstinence from alcohol and lose weight byadhering to exercise and healthy diet. Patient will need outpatient referral for CPAP machine once he gets permanent health insurance. During hospitalization patient was also found to have cirrhosis with mild ascites and a liver lesion in the right lobe. Patient is advised to follow-up with a rewrite editor outpatient and to monitor liver function test regularly. Patient is hemodynamically stable, has tolerated all of his medications, underwent PT evaluation and can be discharged home with home oxygen and pending trilogy machine. Discharge Recommendations -Follow up with PCP within 1 week of discharge, if you do not have a primary care physician you can come see us at the [facility] by calling [phone] -You primary care will also need to order a sleep study for you which will determine if you need a CPAP machine at night for obstructive sleep apnea. Please continue to wear your oxygen at all times with goal saturation above 94% -You have been prescribed multiple medications for your heart including Lasix, Spironolactone, Farxiga and Amlodipine. Please take your med as directed -You will need a referral for physical therapy supervisor and rewrite editor to follow up on your liver lesion seen on imaging. -Return to the ED or call EMS if symptoms return and/or worsen Hospitalization Diagnosis #Acute Hypoxic hypercapnic respiratory failure 2/2 to #Acute exacerbation of CHF, HFpEF EF 55-60% #Right heart failure #Pulmonary HTN, Moderate #ALLI #Anasarca #Coccidioidomycosis- ruled out #Left foot pain- resolved #Cirrhosis #Ascites, mild #Liver lesion, right lobe #Alcohol use disorder #Umbilical hernia Assessment and plan discussed with my attending physician Dr. Magno Roth (PGY-1)- Internal medicine resident Time Spent with Patient Time attestation: Total time spent providing and/or coordinating discharge services: Time spent: Greater than 30 minutes Exam Vital Signs Temp Pulse Resp BP Pulse Ox O2 Del Method O2 Flow Rate 98.0 F 93 24 H 138/90 H 94 L Nasal Cannula 4 08/04/24 08:00 08/04/24 09:00 08/04/24 09:00 08/04/24 09:00 08/04/24 09:00 08/04/24 00:00 08/04/24 07:27 FiO2 40 07/29/24 16:00 Narrative Exam GENERAL: A&Ox3 , middle aged obese male, Awake saturating on 3L via NC, cooperative, Not in acute distress NEURO: no focal neurological deficits HEENT: Atraumatic, Normocephalic. mucous membranes moist. Eyes open, symmetrical, & clear HEART: Normal Heart Sounds LUNGS: Clear to auscultation with no wheezing or crackles. ABDOMEN: soft, non-distended, non-tender, bowel sounds heard, no guarding or rebound tenderness SKIN: No Rash or ecchymoses EXTREMITIES: no edema, tenderness, able to move all 4 extremities, pedal pulses palpated Discharge Plan Plan Patient Disposition: HOME (Self Care) Patient condition on transfer: Stable Care Plan Goals: -Follow up with PCP within 1 week of discharge, if you do not have a primary care physician you can come see us at the [facility] by calling [phone] -You primary care will also need to order a sleep study for you which will determine if you need a CPAP machine at night for obstructive sleep apnea. Please continue to wear your oxygen at all times with goal saturation above 94% -You have been prescribed multiple medications for your heart including Lasix, Spironolactone, Farxiga and Amlodipine. Please take your med as directed -You will need a referral for physical therapy supervisor and rewrite editor to follow up on your liver lesion seen on imaging. -Return to the ED or call EMS if symptoms return and/or worsen Prescriptions/Referrals Prescriptions/Med Rec: New amlodipine 10 mg tablet 10 mg PO QDAY 30 Days Qty: 30 0RF dapagliflozin propanediol 10 mg tablet 10 mg PO QAM 30 Days Qty: 30 0RF furosemide 40 mg Tablet 40 mg PO QDAY 30 Days Qty: 30 0RF spironolactone 25 mg Tablet 25 mg PO QDAY 30 Days Qty: 30 0RF Referrals: No Primary/Family,Physician [Primary Care Provider] - Patient/Caregiver Discharge Instructions Discharge Activity: return to work once clear, wear oxygen at all times and wear oxygen at night Education Materials: What Is Heart Failure, Heart Failure: Tracking Your Weight, Heart Failure: Being Active, Heart Failure Making Changes to ..., CHF Ch Print Language: Swazi Stand Alone Forms: Yajaira Award Info., Patient Portal Info Letter Discharge Order Discharge Orders: Discharge (Routine); Ordered 08/04/24 Ordered By: Kandy Valenzuela Quality Discharge Quality Measures VTE prophylaxis MD Attestestation MD Attestation I have discussed and was present for the essential components of the discharge history, physical examination, diagnosis, and discharge treatment plan with the resident. I agree with the patient's discharge care as documented by the resident and amended herein by me. Hank Kiran, . The patient understood all discharge instructions, all questions were answered satisfactorily. The patient was instructed to return to the Emergency Department is symptoms worsened or persisted. Patient was stable, afebrile, tolerating p.o. intake and ambulatory times discharge home with home oxygen. Patient instructed on the necessity of alcohol cessation and weight loss however will help to follow-up closely with PCP for further assistance and monitoring. Patient will be discharged on Lasix, spironolactone, SGL 2 inhibitor and spironolactone. All questions were answered satisfactorily. Although this document has been carefully reviewed, there may still be some phonetic and other typographical errors. These errors are purely grammatical due to imperfections in the software program and should not be construed in any way to compromise the substance of the patient's medical care during this visit.
--- NOTE | 2024-08-04 15:25 | PC.SS ---
Bedside nurse confirmed that patient's trilogy delivered prior to patient's discharge home.
== END 2024-08-04 12:06 | disposition home or self-care (01) | DRG 194 ==
LOC: SERX 11:25 → SERHOLD 12:31 → S2NX 15:03 → S3NX 07-29 22:59 → S2SX 08-03 09:25
PROVIDERS: Admitting Provider Internal Medicine; Emergency Provider Emergency Medicine; Visit Provider Student in an Organized Health Care Education/Training Program
DX: I11.0 Hypertensive heart disease with heart failure (principal); J96.01 Acute respiratory failure with hypoxia; J96.02 Acute respiratory failure with hypercapnia; D75.1 Secondary polycythemia; E11.9 Type 2 diabetes mellitus without complications; E66.2 Morbid (severe) obesity with alveolar hypoventilation; E87.3 Alkalosis; F10.10 Alcohol abuse, uncomplicated; I25.10 Atherosclerotic heart disease of native coronary artery without angina pectoris; I27.21 Secondary pulmonary arterial hypertension; I50.43 Acute on chronic combined systolic (congestive) and diastolic (congestive) heart failure; J18.9 Pneumonia, unspecified organism; J44.0 Chronic obstructive pulmonary disease with (acute) lower respiratory infection; N19 Unspecified kidney failure; K74.60 Unspecified cirrhosis of liver; I31.39 Other pericardial effusion (noninflammatory); R18.8 Other ascites; K42.9 Umbilical hernia without obstruction or gangrene; Z87.891 Personal history of nicotine dependence; Z79.899 Other long term (current) drug therapy; M79.672 Pain in left foot; I50.82 Biventricular heart failure
CPT/HCPCS: 36415; 36600; 71045; 71250; 71275; 73630; 74177; 76000; 80053; 80061; 80074; 80320; 82150; 82248; 82803; 83036; 83690; 83735; 83880; 84100; 84439; 84443; 84484; 85025; 85379; 85610; 85730; 86038; 86635; 86703; 87400; 87811; 93005; 93225; 93306; 94640; 94660; 96361; 96372; 96374; 96375; 96376; 99291; A4314; A4649; A9270; J1644; J1650; J1885; J1938; J2270; J2919; J3475; J3480; J3490; J7030; J8499; Q9967; G0480; J1920